=== PATIENT | male | born 1975 | race Caucasian/White ===

== ENCOUNTER 2016-06-30 16:28 | Emergency (ER) | payer MEDICARE ==
[~2016-06-30] VITALS: Ht 170.2 cm; Wt 86.2 kg
[~2016-06-30 16:28] MED LIST: AMIT50TA PO; BUSP30TA PO; CLIN-44 PO; DIPH25CA58 PO; HYDR-2666 PO; HYDR-971 PO; HYDR12.58 PO; IVER3TAB2 PO; LEVO750T31 PO; LISI-334 PO; METO50TA2 PO; METR500T4 PO; NAPR500T3 PO; NAPR550T PO; NYST30PO9 TP; ONDA4TAB7 PO; OXYC-323 PO; PERM60CR11 TP; PRED50TA PO; PROAIR HFA8.5 GM INH; VENL37.56 PO
[2016-06-30 16:51] VITALS: BP 147/63
[2016-06-30] MEDS ORDERED: HYDROCODONE/APAP 5/325MG TABLET. PO ONE (17:45)
[2016-06-30] MEDS ORDERED: DICL100T PO (18:21)
--- NOTE | 2016-06-30 18:22 | PHYS DOC ---
Past Medical History Past Medical History: Anxiety, Other Additional Past Medical Histor: neuropathy, chronic back pain, COLITIS Past Surgical History: No Surgical History Alcohol Use: None Drug Use: None Adult General Chief Complaint Chief Complaint: OTHER COMPLAINTS [facility] HPI Patient is a 40 year old male presents emergency room today with complaint of tailbone pain as well as bilateral hip pain, left greater than right secondary to a fall yesterday. Patient states he attempted to sit, bend 20 minutes the bench and landed onto his buttocks. Patient was seen here last night and was told that he had a tailbone injury. He did not receive any narcotic prescriptions to take home as patient was researched on [employer] and found to have multiple narcotic prescriptions within the past month. Patient is also complaining of rectal irritation and bright red blood on the toilet paper when he wipes. Patient does have a history of colitis. He denies abdominal pain, fevers or chills. Patient states this began today. Review of Systems Review of Systems Constitutional: Denies fever or chills [] Eyes: Denies change in visual acuity, redness, or eye pain [] HENT: Denies nasal congestion or sore throat [] Respiratory: Denies cough or shortness of breath [] Cardiovascular: No additional information not addressed in HPI [] GI: Denies abdominal pain, nausea, vomiting, bloody stools or diarrhea patient reports anal irritation and bright red blood on toilet paper when he wipes. Patient denies black or bloody stools. Patient denies gross blood in the toilet with bowel movements. : Denies dysuria or hematuria [] Musculoskeletal: Patient reports tailbone and bilateral hip pain, left greater than right. Integument: Denies rash or skin lesions [] Neurologic: Denies headache, focal weakness or sensory changes [] Endocrine: Denies polyuria or polydipsia [] Current Medications Current Medications Current Medications Medications (Trade) Dose Ordered Sig/Idalia Start Time Stop Time Status Last Admin Dose Admin Acetaminophen/ Hydrocodone Bitart (Lortab 5/325) 1 tab 1X ONCE 06/30/16 17:45 06/30/16 17:47 DC 06/30/16 18:07 1 TAB Allergies Allergies Allergies Coded Allergies Type Severity Reaction Last Updated Verified ketorolac Allergy Severe HIVES 06/14/16 No Penicillins Allergy Intermediate 06/14/16 Yes tramadol Allergy Intermediate HIVES 06/14/16 Yes Physical Exam Physical Exam Constitutional: Well developed, well nourished, no acute distress, non-toxic appearance. [] HENT: Normocephalic, atraumatic, bilateral external ears normal, oropharynx moist, no oral exudates, nose normal. [] Eyes: PERRLA, EOMI, conjunctiva normal, no discharge. [] Neck: Normal range of motion, no tenderness, supple, no stridor. [] Cardiovascular:Heart rate regular rhythm, no murmur [] Lungs & Thorax: Bilateral breath sounds clear to auscultation [] Abdomen: Bowel sounds normal, soft, no tenderness, no masses, no pulsatile masses. Patient has a small anal fissure at the approximate 5 o'clock position. There is no active bleeding at this time. Skin: Warm, dry, no erythema, no rash. [] Back: No tenderness, no CVA tenderness. Extremities: Patient's pelvis is stable. There is tenderness to palpation to the posterior lateral aspect of patient's left hip but any palpable defect, deformity, instability or crepitus. There is also tenderness to palpation in the inferior aspect of the sacrum into the coccyx. There is no palpable defect or deformity appreciated. There is no instability or crepitus. Neurologic: Alert and oriented X 3, normal motor function, normal sensory function, no focal deficits noted. [] Psychologic: Affect normal, judgement normal, mood normal. [] Current Patient Data Vital Signs Vital Signs Date Time Temp Pulse Resp B/P Pulse Ox O2 Delivery O2 Flow Rate FiO2 06/30/16 18:07 18 98 Room Air 06/30/16 16:51 97.7 69 97.7 EKG EKG [] Radiology/Procedures Radiology/Procedures AP pelvis was performed with adequate technique. There is no evidence of acute bony injury. Dedicated views of the coccyx and sacrum were performed as well. There is no definitive evidence of a sacrococcygeal fracture. Course & Med Decision Making Course & Med Decision Making Pertinent Labs and Imaging studies reviewed. (See chart for details) [] Dragon Disclaimer Dragon Disclaimer This electronic medical record was generated, in whole or in part, using a voice recognition dictation system. Departure Departure Impression: Primary Impression: Coccygeal pain, acute Additional Impressions: Contusion Anal fissure Disposition: HOME, SELF-CARE Condition: GOOD Referrals: NO PCP (PCP) Patient Instructions: Contusion, [id number], Tailbone Injury, [id number] Additional Instructions: 1. The x-rays of your tailbone and hips/pelvis today are normal. This means that you did not break any bones. 2. Take the medication as prescribed. 3. Review the discharge instructions for reasons return to the emergency room. 4. Follow-up with a primary care doctor in the next 5-7 days. Use the pamphlet provided for assistance in finding one. Scripts Diclofenac Sodium (Voltaren-Xr)100 Mg Tab.er.24h1 Tab PO DAILY #30 TAB Prov:FLOWER RAMOS 06/30/16 Problem Qualifiers FLOWER RAMOS Jun 30, 2016 18:22
--- NOTE | 2016-07-01 09:49 | RAD ---
Three-view sacrum and coccyx study Indications: Fell yesterday. Pain. Findings: No fracture or displacement or osteolytic process is seen. No diastases of either SI joint is seen. IMPRESSION: No acute fracture.
--- NOTE | 2016-07-01 09:50 | RAD ---
AP view of the pelvis Indications: Fell yesterday. Pain. Findings: The hip joints are symmetric. No acute fracture is seen. No diastases is evident. No osteolytic process is seen. IMPRESSION: No acute fracture.
== END 2016-06-30 18:28 | disposition home or self-care (01) ==
LOC: ER 16:28
DX: T14.8 Other injury of unspecified body region (principal); K60.2 Anal fissure, unspecified; M53.3 Sacrococcygeal disorders, not elsewhere classified; M25.551 Pain in right hip; M25.552 Pain in left hip; G89.29 Other chronic pain; Z88.0 Allergy status to penicillin; Z88.8 Allergy status to other drugs, medicaments and biological substances; Z88.6 Allergy status to analgesic agent; W19.XXXA Unspecified fall, initial encounter; Y93.89 Activity, other specified; Y99.8 Other external cause status; Y92.89 Other specified places as the place of occurrence of the external cause
CPT/HCPCS: 72170; 72220; 99284

== ENCOUNTER 2016-07-13 19:22 | Emergency (ER) | payer MEDICARE ==
[~2016-07-13] VITALS: Ht 167.6 cm; Wt 86.2 kg
[~2016-07-13 19:22] MED LIST changes: +DICL100T PO
[2016-07-13 19:30] VITALS: BP 134/82
[2016-07-13] MEDS ORDERED: DICL75TA PO (20:11)
--- NOTE | 2016-07-13 20:11 | PHYS DOC ---
Past Medical History Past Medical History: Anxiety, Hypertension, Other Additional Past Medical Histor: neuropathy, chronic back pain, COLITIS Past Surgical History: No Surgical History Alcohol Use: None Drug Use: None Adult General Chief Complaint Chief Complaint: HAND PROBLEM HPI HPI Patient is a 40 year old male presents the emergency Department today with complaint of right wrist and hand pain secondary to a fall down 15 steps at home. Patient denies any additional injuries or concerns at this time. Patient states this happened within the past hour. Patient denies striking his head or loss of consciousness. Patient denies any previous fractures or dislocations to his right wrist or hand. Of incidental note, patient is been seen numerous times at this facility for slips/falls without radiographic evidence of bony injury. This is patient's third visit to this emergency department in the past 2 weeks. Review of Systems Review of Systems Constitutional: Denies fever or chills [] Eyes: Denies change in visual acuity, redness, or eye pain [] HENT: Denies nasal congestion or sore throat [] Respiratory: Denies cough or shortness of breath [] Cardiovascular: No additional information not addressed in HPI [] GI: Denies abdominal pain, nausea, vomiting, bloody stools or diarrhea [] : Denies dysuria or hematuria [] Musculoskeletal: Denies back pain or joint pain [] Integument: Denies rash or skin lesions [] Neurologic: Denies headache, focal weakness or sensory changes [] Endocrine: Denies polyuria or polydipsia [] Allergies Allergies Allergies Coded Allergies Type Severity Reaction Last Updated Verified ketorolac Allergy Severe HIVES 06/14/16 No Penicillins Allergy Intermediate 06/14/16 Yes tramadol Allergy Intermediate HIVES 06/14/16 Yes Physical Exam Physical Exam Constitutional: Well developed, well nourished, no acute distress, non-toxic appearance. Patient laughs, smiles and hasn't lighthearted conversation with the staff. HENT: Normocephalic, atraumatic, bilateral external ears normal, oropharynx moist, no oral exudates, nose normal. [] Eyes: PERRLA, EOMI, conjunctiva normal, no discharge. [] Neck: Normal range of motion, no tenderness, supple, no stridor. [] Cardiovascular:Heart rate regular rhythm, no murmur [] Lungs & Thorax: Bilateral breath sounds clear to auscultation [] Abdomen: Bowel sounds normal, soft, no tenderness, no masses, no pulsatile masses. [] Skin: Warm, dry, no erythema, no rash. [] Back: No tenderness, no CVA tenderness. [] Extremities: Patient's right shoulder, right upper arm, right elbow and right proximal/mid forearm are normal in appearance and nontender palpation. Patient' s right hand and right wrist are normal in appearance. Patient is tenderness to both the proximal carpal rolls of his wrist without focal tenderness, instability or crepitus. His hand is also tender to palpation to the area of the fourth and fifth metacarpal. There is no palpable defect, deformity, instability or crepitus to the hand or wrist. Wrist is stable without laxity. Fingers are neurovascularly intact with capillary refill less than 2 seconds. Neurologic: Alert and oriented X 3, normal motor function, normal sensory function, no focal deficits noted. [] Psychologic: Affect normal, judgement normal, mood normal. [] Current Patient Data Vital Signs Vital Signs Date Time Temp Pulse Resp B/P Pulse Ox O2 Delivery O2 Flow Rate FiO2 07/13/16 19:30 98.1 92 18 98 Room Air 98.1 EKG EKG [] Radiology/Procedures Radiology/Procedures 3 views of patient's right wrist and right hand were performed with adequate technique. There is no evidence of fracture or dislocation. Course & Med Decision Making Course & Med Decision Making This is a 40-year-old male who presents the emergency department with a complaint of a slip and fall at home within an hour his arrival here in the emergency department. He reports his only injuries to his right wrist and hand after falling down approximately 15 stairs. His physical exam shows no outward evidence of injury, his x-rays here today are normal. Patient is well-known at this facility for requesting narcotics. He did request pain medicine here. This was denied by me. I will not prescribe him narcotics. Dragon Disclaimer Dragon Disclaimer This electronic medical record was generated, in whole or in part, using a voice recognition dictation system. Departure Departure Impression: Primary Impression: Hand contusion Additional Impression: Wrist sprain Referrals: NO PCP (PCP) Patient Instructions: Contusion, [id number], Joint Sprain Additional Instructions: 1. The x-rays of your right hand and wrist today show no evidence of fracture or dislocation. 2. Keep the Bart wrap on during periods of activity. Apply ice every 2 hours for 20-30 minutes at a time. 3. Take the medication as prescribed. 4. Read over the discharge instructions for self-care and reasons return to the emergency room. 5. Use the pamphlet provided for assistance in finding a primary care doctor to address your medical concerns. Scripts Diclofenac Sodium 75 Mg Tablet.dr1 Tab PO BID #20 TAB Ref 1 Prov:FLOWER RAMOS 07/13/16 Problem Qualifiers Primary Impression: Hand contusion Encounter type: initial encounter Laterality: right Qualified Code: S60.221A - Contusion of right hand, initial encounter Additional Impression: Wrist sprain Encounter type: initial encounter Laterality: right Qualified Code: S63.501A - Unspecified sprain of right wrist, initial encounter FLOWER RAMOS Jul 13, 2016 20:11
--- NOTE | 2016-07-14 08:14 | RAD ---
Right wrist and right hand radiographs History: Pain after fall. Comparison: Right wrist radiographs 11/21/2008. Findings: PA, lateral, and oblique views of the right wrist. No acute fracture or dislocation is identified. No focal soft tissue swelling is seen. PA, lateral, and oblique views of the right hand. No acute fracture or dislocation is identified. No focal soft tissue swelling is seen. Impression: No acute osseous traumatic injury identified.
== END 2016-07-13 20:20 | disposition home or self-care (01) ==
LOC: ER 19:22
DX: S63.501A Unspecified sprain of right wrist, initial encounter (principal); S60.229A Contusion of unspecified hand, initial encounter; I10 Essential (primary) hypertension; G89.29 Other chronic pain; M54.89 Other dorsalgia; Z88.0 Allergy status to penicillin; Z88.5 Allergy status to narcotic agent; Z88.8 Allergy status to other drugs, medicaments and biological substances; W10.8XXA Fall (on) (from) other stairs and steps, initial encounter; Y93.89 Activity, other specified; Y99.8 Other external cause status; Y92.098 Other place in other non-institutional residence as the place of occurrence of the external cause
CPT/HCPCS: 73110; 73130; 99284

== ENCOUNTER 2016-11-17 20:29 | Emergency (ER) | payer SELFPAY ==
[~2016-11-17] VITALS: Ht 167.6 cm; Wt 92.1 kg
[~2016-11-17 20:29] MED LIST changes: +DICL75TA PO; +NYST15PO9 TP; -NYST30PO9 TP
[2016-11-17 20:46] VITALS: BP 159/72
[2016-11-17 21:54] LABS: BASO # 0.1 x10^3/uL (0.0-0.2); BASO % 1 % (0-3); EOS % 3 % (0-3); HEMATOCRIT 45.5 % (39.0-53.0); HEMOGLOBIN 15.6 g/dL (13.0-17.5); LYMPH # 2.7 x10^3/uL (1.0-4.8); LYMPH % 22 % (24-48); MEAN CORPUSCULAR HEMOGLOBIN 33 pg (25-35); MEAN CORPUSCULAR HGB CONC 34 g/dL (31-37); MEAN CORPUSCULAR VOLUME 96 fL (79-100); MONO % 8 % (0-9); NEUT % 65 % (31-73); PLATELET COUNT 288 x10^3/uL (140-400); RED BLOOD COUNT 4.73 x10^6/uL (4.30-5.70); RED CELL DISTRIBUTION WIDTH 13.2 % (11.5-14.5)
[2016-11-17 21:59] LABS: NEG OBC FOB NEG; POS OBC FOB POS
[2016-11-17] MEDS ORDERED: FAMOTIDINE 20 MG/2 ML VIAL IVP ONE (22:00)
[2016-11-17] MEDS ORDERED: IV NORMAL SALINE 1000ML BAG 1,000 ML IV ONE (22:00)
[2016-11-17] MEDS ORDERED: ONDANSETRON PF 4 MG/2 ML VIAL. IV ONE (22:00)
[2016-11-17] MEDS ORDERED: fentaNYL PF VIAL 100 MCG/2 ML VIAL IV ONE (22:00)
[2016-11-17 22:06] LABS: CALCIUM 9.3 mg/dL (8.5-10.1); CREATININE 1.1 mg/dL (0.7-1.3); GFR 73.1; POTASSIUM 3.8 mmol/L (3.5-5.1)
[2016-11-17 22:12] LABS: ALBUMIN 3.6 g/dL (3.4-5.0); ALBUMIN/GLOBULIN RATIO 0.9 (1.0-1.7); TOTAL BILIRUBIN 0.2 mg/dL (0.2-1.0); TOTAL PROTEIN 7.6 g/dL (6.4-8.2)
[2016-11-17] MEDS ORDERED: CONTRAST GIVEN MC PRN (22:30)
[2016-11-17] MEDS ORDERED: IOHEXOL 300 MG/ML 75 ML VIAL IV ONE (22:30)
[2016-11-17 22:40] LABS: BILIRUBIN,URINE NEGATIVE (NEG); GLUCOSE,URINE NEGATIVE (NEG); NITRITE,URINE NEGATIVE (NEG); PROTEIN,URINE NEGATIVE (NEG-TRACE); UROBILINOGEN,URINE 0.2 mg/dL (0.2 mg/dL)
[2016-11-17 22:45] LABS: BARBITURATES NEG (NEG); BENZODIAZEPINES NEG (NEG); CANNABINOIDS NEG (NEG); COCAINE NEG (NEG); METHADONE NEG (NEG); OPIATES NEG (NEG); PHENCYCLIDINE NEG (NEG)
--- NOTE | 2016-11-17 22:57 | RAD ---
PROCEDURE CT of the abdomen and pelvis with contrast HISTORY Abdominal pain with rectal bleeding TECHNIQUE After IV infusion of95 cc of Optiray-320, helical CT scanning of the abdomen and pelvis was performed.GI contrast was not administered COMPARISON FINDINGS The liveer is homogeous in appearance and normal in size. The spleen is unremarkable and normal in size. The pancreas is homogeneous in appearance and no focal enlargement is seen. The gallbladder appears normal and no intra or extrahepatic biliary ductal dilatation is seen. No focal aneurysmal dilatation of the abdominal aorta is seen. No enlarged abdominal or pelvic lymphadenopathy is seen. No soft tissue mass is seen. No obstructive bowel pattern or bowel wall thickening or inflammatory change is seen. No free intraperitoneal fluid or abscess or free intraperitoneal air is seen. The lung bases are clear. [The kidneys appear normal. There is mild wall thickening of the urinary bladder. No adrenal masses are seen. No osteolytic process is seen. The appendix is normal. IMPRESSION One. Mild wall thickening of the urinary bladder could be secondary nondistention or could be mild cystitis. 2. No other findings. PQRS Statement: One or more of the following individualized dose reduction techniques were utilized for this study: 1. Automated exposure control. 2. Adjustment of the mA and/or kV according to patient size. 3. Use of iterative reconstruction technique. Electronically signed by: Yang Villa MD (November 17, 2016 22:55:12)
[2016-11-17 23:15] LABS: BACTERIA,URINE 0 /HPF (0-FEW); RBC,URINE 0 /HPF (0-2); WBC,URINE OCC /HPF (0-4)
[2016-11-17] MEDS ORDERED: CIPROFLOXACIN 400MG PREMIX 200 ML IV STA (23:18)
[2016-11-17] MEDS ORDERED: DICYCLOMINE HCL 10 MG CAPSULE PO ONE (23:30)
[2016-11-17] MEDS ORDERED: HYDROcodone/APAP 5/325MG 1 TAB TABLET PO ONE (23:30)
--- NOTE | 2016-11-17 23:31 | PHYS DOC ---
Past Medical History Past Medical History: Anxiety, Hypertension, Other Additional Past Medical Histor: neuropathy, chronic back pain, COLITIS Past Surgical History: Other Additional Past Surgical Histo: HERNIA REPAIR Alcohol Use: None Drug Use: None Adult General Chief Complaint Chief Complaint: RECTAL BLEED HPI HPI Patient is a 41-year-old male with history of hypertension and anxiety who presents today with mild intermittent bilateral lower abdominal pain with diarrhea for two days and rectal bleed noted three hours ago on toilet paper when he wiped himself. Patient states the blood was bright red. Patient states he feels his rectal region is very sore from wiping due to the diarrhea. Patient states he has history of an intestine infection a few years ago. Patient denies any fever. Patient denies any nausea vomiting. Review of Systems Review of Systems Constitutional: Denies fever or chills [] Eyes: Denies change in visual acuity, redness, or eye pain [] HENT: Denies nasal congestion or sore throat [] Respiratory: Denies cough or shortness of breath [] Cardiovascular: No additional information not addressed in HPI [] GI: Abdominal pain, rectal bleeding, diarrhea : Denies dysuria or hematuria [] Musculoskeletal: Denies back pain or joint pain [] Integument: Denies rash or skin lesions [] Neurologic: Denies headache, focal weakness or sensory changes [] Endocrine: Denies polyuria or polydipsia [] Current Medications Current Medications Current Medications Medications (Trade) Dose Ordered Sig/Idalia Start Time Stop Time Status Last Admin Dose Admin Acetaminophen/ Hydrocodone Bitart (Lortab 5/325) 1 tab 1X ONCE 11/17/16 23:30 11/17/16 23:31 DC 11/17/16 23:27 1 TAB Ciprofloxacin Lactate 200 ml @ 200 mls/hr 1X STAT 11/17/16 23:18 11/18/16 00:17 UNV Dicyclomine HCl (Bentyl) 20 mg 1X ONCE 11/17/16 23:30 11/17/16 23:31 DC 11/17/16 23:27 20 MG Famotidine (Pepcid) 20 mg 1X ONCE 11/17/16 22:00 11/17/16 22:01 DC 11/17/16 22:09 20 MG Fentanyl Citrate (Fentanyl 2ml Vial) 25 mcg 1X ONCE 11/17/16 22:00 11/17/16 22:01 DC 11/17/16 22:10 25 MCG Info (Do NOT chart on this entry -- for MONITORING) 1 each PRN DAILY PRN 11/17/16 22:30 11/17/16 23:42 DC Iohexol (Omnipaque 300 Mg/ml) 75 ml 1X ONCE 11/17/16 22:30 11/17/16 22:31 DC 11/17/16 22:44 75 ML Ondansetron HCl (Zofran) 4 mg 1X ONCE 11/17/16 22:00 11/17/16 22:01 DC 11/17/16 22:09 4 MG Sodium Chloride 1,000 ml @ 1,000 mls/hr 1X ONCE 11/17/16 22:00 11/17/16 22:59 DC 11/17/16 22:00 1,000 MLS/HR Allergies Allergies Allergies Coded Allergies Type Severity Reaction Last Updated Verified ketorolac Allergy Severe HIVES 06/14/16 No Penicillins Allergy Intermediate 06/14/16 Yes tramadol Allergy Intermediate HIVES 06/14/16 Yes Physical Exam Physical Exam Constitutional: Well developed, well nourished, no acute distress, non-toxic appearance. [] HENT: Normocephalic, atraumatic, bilateral external ears normal, oropharynx moist, no oral exudates, nose normal. [] Eyes: PERRLA, EOMI, conjunctiva normal, no discharge. [] Neck: Normal range of motion, no tenderness, supple, no stridor. [] Cardiovascular:Heart rate regular rhythm, no murmur [] Lungs & Thorax: Bilateral breath sounds clear to auscultation [] Abdomen: Bowel sounds normal, soft, no tenderness, no masses, no pulsatile masses. [] Rectal exam External rectum region appears normal No internal or external hemorrhoids Brown stool on rectal exam Skin: Warm, dry, no erythema, no rash. [] Back: No tenderness, no CVA tenderness. [] Extremities: No tenderness, no cyanosis, no clubbing, ROM intact, no edema. [] Neurologic: Alert and oriented X 3, normal motor function, normal sensory function, no focal deficits noted. [] Psychologic: Affect normal, judgement normal, mood normal. [] Current Patient Data Vital Signs Vital Signs Date Time Temp Pulse Resp B/P (MAP) Pulse Ox O2 Delivery O2 Flow Rate FiO2 5/21/17 23:27 20 11/17/16 20:46 98.1 88 159/72 (101) 97 Room Air 98.1 Lab Values Laboratory Tests Test 11/17/16 21:45 11/17/16 22:31 White Blood Count 12.0 x10^3/uL (4.0-11.0) H Red Blood Count 4.73 x10^6/uL (4.30-5.70) Hemoglobin 15.6 g/dL (13.0-17.5) Hematocrit 45.5 % (39.0-53.0) Mean Corpuscular Volume 96 fL (79-100) Mean Corpuscular Hemoglobin 33 pg (25-35) Mean Corpuscular Hemoglobin Concent 34 g/dL (31-37) Red Cell Distribution Width 13.2 % (11.5-14.5) Platelet Count 288 x10^3/uL (140-400) Neutrophils (%) (Auto) 65 % (31-73) Lymphocytes (%) (Auto) 22 % (24-48) L Monocytes (%) (Auto) 8 % (0-9) Eosinophils (%) (Auto) 3 % (0-3) Basophils (%) (Auto) 1 % (0-3) Neutrophils # (Auto) 7.8 x10^3uL (1.8-7.7) H Lymphocytes # (Auto) 2.7 x10^3/uL (1.0-4.8) Monocytes # (Auto) 1.0 x10^3/uL (0.0-1.1) Eosinophils # (Auto) 0.4 x10^3/uL (0.0-0.7) Basophils # (Auto) 0.1 x10^3/uL (0.0-0.2) Stool Occult Blood Positive (NEG) Sodium Level 142 mmol/L (136-145) Potassium Level 3.8 mmol/L (3.5-5.1) Chloride Level 106 mmol/L (98-107) Carbon Dioxide Level 26 mmol/L (21-32) Anion Gap 10 (6-14) Blood Urea Nitrogen 20 mg/dL (8-26) Creatinine 1.1 mg/dL (0.7-1.3) Estimated GFR (Cockcroft-Gault) 73.1 BUN/Creatinine Ratio 18 (6-20) Glucose Level 103 mg/dL (70-99) H Calcium Level 9.3 mg/dL (8.5-10.1) Total Bilirubin 0.2 mg/dL (0.2-1.0) Aspartate Amino Transferase (AST) 17 U/L (15-37) Alanine Aminotransferase (ALT) 34 U/L (16-63) Alkaline Phosphatase 59 U/L (46-116) Total Protein 7.6 g/dL (6.4-8.2) Albumin 3.6 g/dL (3.4-5.0) Albumin/Globulin Ratio 0.9 (1.0-1.7) L Lipase 97 U/L (73-393) Ethyl Alcohol Level < 10 mg/dL (0-10) Urine Collection Type Unknown Urine Color Yellow Urine Clarity Clear Urine pH 7.0 Urine Specific [place] >=1.030 Urine Protein Negative mg/dL (NEG-TRACE) Urine Glucose (UA) Negative mg/dL (NEG) Urine Ketones (Stick) Negative mg/dL (NEG) Urine Blood Negative (NEG) Urine Nitrite Negative (NEG) Urine Bilirubin Negative (NEG) Urine Urobilinogen Dipstick 0.2 mg/dL (0.2 mg/dL) Urine Leukocyte Esterase Negative (NEG) Urine RBC 0 /HPF (0-2) Urine WBC Occ /HPF (0-4) Urine Squamous Epithelial Cells None /LPF Urine Bacteria 0 /HPF (0-FEW) Urine Mucus Mod /LPF Urine Opiates Screen Neg (NEG) Urine Methadone Screen Neg (NEG) Urine Barbiturates Neg (NEG) Urine Phencyclidine Screen Neg (NEG) Urine Amphetamine/Methamphetamine Neg (NEG) Urine Benzodiazepines Screen Neg (NEG) Urine Cocaine Screen Neg (NEG) Urine Cannabinoids Screen Neg (NEG) Urine Ethyl Alcohol Neg (NEG) Laboratory Tests 11/17/16 21:45 Laboratory Tests 11/17/16 21:45 EKG EKG [] Radiology/Procedures Radiology/Procedures []PROCEDURE: CT ABD PELV W/ IV CONTRST ONLY PROCEDURE CT of the abdomen and pelvis with contrast HISTORY Abdominal pain with rectal bleeding TECHNIQUE After IV infusion of95 cc of Optiray-320, helical CT scanning of the abdomen and pelvis was performed.GI contrast was not administered COMPARISON FINDINGS The liveer is homogeous in appearance and normal in size. The spleen is unremarkable and normal in size. The pancreas is homogeneous in appearance and no focal enlargement is seen. The gallbladder appears normal and no intra or extrahepatic biliary ductal dilatation is seen. No focal aneurysmal dilatation of the abdominal aorta is seen. No enlarged abdominal or pelvic lymphadenopathy is seen. No soft tissue mass is seen. No obstructive bowel pattern or bowel wall thickening or inflammatory change is seen. No free intraperitoneal fluid or abscess or free intraperitoneal air is seen. The lung bases are clear. [The kidneys appear normal. There is mild wall thickening of the urinary bladder. No adrenal masses are seen. No osteolytic process is seen. The appendix is normal. IMPRESSION One. Mild wall thickening of the urinary bladder could be secondary nondistention or could be mild cystitis. 2. No other findings. PQRS Statement: One or more of the following individualized dose reduction techniques were utilized for this study: 1. Automated exposure control. 2. Adjustment of the mA and/or kV according to patient size. 3. Use of iterative reconstruction technique. Electronically signed by: Jordyn Villa MD (November 17, 2016 22:55:12) DICTATED and SIGNED BY: JORDYN VILLA III, MD DATE: 11/17/16 3962 CC: ANIKET RYDER APRN; NO PCP; NON,STAFF ~ Course & Med Decision Making Course & Med Decision Making Pertinent Labs and Imaging studies reviewed. (See chart for details) Patient is in the ED with complaint of diarrhea for 2 days and abdominal pain. He states he wiped himself this evening and noted some blood on the toilet paper. He states his rectal region has been very raw from multiple diarrhea episodes. CBC with a WBC of 12.0, hemoglobin 15.6, hematocrit 45.5. CMP would not acute findings. Urine analysis is negative for infection. CT of the abdomen and pelvic shows mild thickening of the urinary bladder which could be due to and nondistended bladder or mild cystitis. Patient's urine is negative for infection. He has no UTI symptoms. He was discharged with Lomotil, dicyclomine and pain medicine. We provided him a telesales consultant to follow-up with in the next 1-3 days or his own PCP. His provided return precautions including the need to return to the ED if he symptoms worsen. Dragon Disclaimer Dragon Disclaimer This electronic medical record was generated, in whole or in part, using a voice recognition dictation system. Departure Departure Impression: Primary Impression: Rectal bleed Additional Impressions: Abdominal pain Diarrhea Disposition: 01 HOME, SELF-CARE Condition: STABLE Referrals: NO PCP (PCP) COLETTE HARO MD follow up in one week Patient Instructions: Abdominal Pain, Diarrhea, [id number], Rectal Bleeding, [id number] Additional Instructions: You were seen for abdominal pain, rectal bleeding, and diarrhea. Take the prescribed medicines as ordered. Follow-up with the provided doctor in the next 1-3 days. Come back to the emergency room if symptoms worsen. Scripts Diphenoxylate Hcl/Atropine (LOMOTIL TABLET) 1 Each Tablet 1 TAB PO TID, #30 TAB Prov: ANIKET RYDER APRN 11/17/16 Dicyclomine Hcl (DICYCLOMINE HCL) 20 Mg Tablet 1 TAB PO TID, #30 TAB 1 Refill Prov: ANIKET RYDER APRN 11/17/16 Hydrocodone/Apap 5-325 (NORCO 5-325 TABLET) 1 Each Tablet 1-2 TAB PO Q4-6HRS, #12 TAB Prov: ANIKET RYDER APRN 11/17/16 Problem Qualifiers Additional Impressions: Abdominal pain Abdominal location: lower abdomen, unspecified Qualified Codes: R10.30 - Lower abdominal pain, unspecified Diarrhea Diarrhea type: unspecified type Qualified Codes: R19.7 - Diarrhea, unspecified ANIKET RYDER APRN November 17, 2016 23:31
[2016-11-17] MEDS ORDERED: HYDR-971 PO (23:36)
[2016-11-17] MEDS ORDERED: DICY20TA3 PO (23:36)
[2016-11-17] MEDS ORDERED: DIPH1TAB PO (23:36)
== END 2016-11-17 23:40 | disposition home or self-care (01) ==
LOC: ER 20:29
DX: K62.5 Hemorrhage of anus and rectum (principal); R10.30 Lower abdominal pain, unspecified; F41.9 Anxiety disorder, unspecified; I10 Essential (primary) hypertension; G89.29 Other chronic pain; Z88.0 Allergy status to penicillin; Z88.6 Allergy status to analgesic agent
CPT/HCPCS: 36415; 74177; 80053; 80305; 80320; 81001; 82274; 83690; 85027; 96361; 96374; 96375; 99285; J2405; J3010; J7030; Q9967; S0028; G0480; G0481

== ENCOUNTER 2016-12-17 17:39 | Emergency (ER) | payer SELFPAY ==
[~2016-12-17] VITALS: Ht 167.6 cm; Wt 86.2 kg
[~2016-12-17 17:39] MED LIST changes: -CLIN-44 PO; +CLIN150C14 PO; +DICY20TA3 PO; +DIPH1TAB PO; -HYDR-2666 PO; +HYDR-2758 PO; -METR500T4 PO; +METR500T8 PO
[2016-12-17 18:00] VITALS: BP 145/80
[2016-12-17] MEDS ORDERED: IBUPROFEN 800 MG TABLET. PO ONE (18:30)
--- NOTE | 2016-12-17 18:41 | PHYS DOC ---
Past Medical History Past Medical History: Anxiety, Hypertension, Other Additional Past Medical Histor: neuropathy, chronic back pain, COLITIS Past Surgical History: Other Additional Past Surgical Histo: HERNIA REPAIR Alcohol Use: None Drug Use: None Adult General Chief Complaint Chief Complaint: FOOT INJURY PAIN HPI HPI Patient is a 41 year old male presents to the emergency department stating that he fell down 2 stairs and injured his foot, after. Patient states she's had increased pain and discomfort. He is not taken anything for the pain at home as he came immediately to the emergency department. Patient is capable of moving his toes he has good sensation noted peripheral pulses are 2+ cap refill brisk less than 2 seconds. Review of Systems Review of Systems Constitutional: Denies fever or chills [] Eyes: Denies change in visual acuity, redness, or eye pain [] HENT: Denies nasal congestion or sore throat [] Respiratory: Denies cough or shortness of breath [] Cardiovascular: No additional information not addressed in HPI [] GI: Denies abdominal pain, nausea, vomiting, bloody stools or diarrhea [] : Denies dysuria or hematuria [] Musculoskeletal: Denies back pain C/o left foot pain Integument: Denies rash or skin lesions [] Neurologic: Denies headache, focal weakness or sensory changes [] Endocrine: Denies polyuria or polydipsia [] Current Medications Current Medications Current Medications Medications (Trade) Dose Ordered Sig/[place]alia Start Time Stop Time Status Last Admin Dose Admin Ibuprofen (Motrin) 800 mg 1X ONCE 12/17/16 18:30 12/17/16 18:32 DC Allergies Allergies Allergies Coded Allergies Type Severity Reaction Last Updated Verified ketorolac Allergy Severe HIVES 06/14/16 No Penicillins Allergy Intermediate 06/14/16 Yes tramadol Allergy Intermediate HIVES 06/14/16 Yes Physical Exam Physical Exam Constitutional: Well developed, well nourished, no acute distress, non-toxic appearance. [] HENT: Normocephalic, atraumatic, bilateral external ears normal, oropharynx moist, no oral exudates, nose normal. [] Eyes: PERRLA, EOMI, conjunctiva normal, no discharge. [] Neck: Normal range of motion, no tenderness, supple, no stridor. [] Cardiovascular:Heart rate regular rhythm, no murmur [] Lungs & Thorax: Bilateral breath sounds clear to auscultation [] Skin: Warm, dry, no erythema, no rash. [] Back: No tenderness Extremities: lef t foot tenderness noted over the fourth and fifth metatarsal area. Patient noted to have a cyst along the fourth metatarsal area. Patient with good sensation noted to toes. Patient was also noted to have peripheral pulses 2+ cap refill brisk less than 2 seconds. No bruising or discoloration noted. No cyanosis, no clubbing, ROM intact, no edema. [] Neurologic: Alert and oriented X 3, normal motor function, normal sensory function, no focal deficits noted. [] Psychologic: Affect normal, judgement normal, mood normal. [] Current Patient Data Vital Signs Vital Signs Date Time Temp Pulse Resp B/P (MAP) Pulse Ox O2 Delivery O2 Flow Rate FiO2 12/17/16 18:00 98.3 95 18 96 Room Air 98.3 EKG EKG [] Radiology/Procedures Radiology/Procedures [] Course & Med Decision Making Course & Med Decision Making Pertinent Labs and Imaging studies reviewed. (See chart for details) X-ray was negative for any bony abnormalities per Dr Latisha Chavez. Patient was placed in an Bart wrap recommended postop shoe with patient refusing. Patient was more concerned of the cyst on the foot other than the foot sprain. Patient will be discharged home in stable condition. Recommended Bart wrap for the next 7-10 days. Recommended a hard sole shoe for the next week. Follow-up with orthopedic if he continued have pain and discomfort. Ibuprofen 800 mg every 8 hours with food stop taking few develop an upset stomach. Ice packs on 20 minutes off 20 minutes several times a day. [] Dragon Disclaimer Dragon Disclaimer This electronic medical record was generated, in whole or in part, using a voice recognition dictation system. Departure Departure Impression: Primary Impression: Sprain of left foot Disposition: 01 HOME, SELF-CARE Condition: STABLE Referrals: NO PCP (PCP) JORDYN PARADA MD Patient Instructions: Foot Sprain-Brief Additional Instructions: Activity as tolerated. Wear the Bart wrap for the next 5-7 days. Wear hard soled shoe for the next week your offered a postop shoe in which you' ve refused. X-rays were negative for any bony abnormalities. Ibuprofen 800 mg every 8 hours with food septic if you develop an upset stomach. Ice packs on 20 minutes off 20 minutes several times a day. Elevation as much as possible. Follow-up with orthopedic in the next week. Return back to emergency prior signs symptoms become worse. ADELA LÓPEZ [employer] Dec 17, 2016 18:41
--- NOTE | 2016-12-18 09:14 | RAD ---
Indication injury, pain particularly metatarsals. AP oblique and lateral views of the left lobe were obtained. No bony abnormality is seen
== END 2016-12-17 18:44 | disposition home or self-care (01) ==
LOC: ER 17:39
DX: S93.602A Unspecified sprain of left foot, initial encounter (principal); I10 Essential (primary) hypertension; G89.29 Other chronic pain; G62.9 Polyneuropathy, unspecified; Z88.0 Allergy status to penicillin; Z88.6 Allergy status to analgesic agent; W10.9XXA Fall (on) (from) unspecified stairs and steps, initial encounter; Y93.89 Activity, other specified; Y99.8 Other external cause status; Y92.89 Other specified places as the place of occurrence of the external cause
CPT/HCPCS: 73630; 99284

== ENCOUNTER 2017-01-03 22:47 | Emergency (ER) | payer SELFPAY ==
[~2017-01-03] VITALS: Ht 167.6 cm; Wt 81.6 kg
--- NOTE | 2017-01-03 23:04 | PHYS DOC ---
Past Medical History Past Medical History: Anxiety, Hypertension, Other Additional Past Medical Histor: neuropathy, chronic back pain, COLITIS Past Surgical History: Other Additional Past Surgical Histo: HERNIA REPAIR Alcohol Use: None Drug Use: None Adult General Chief Complaint Chief Complaint: FOOT INJURY PAIN HPI HPI Patient is a 41 year old presents to the emergency department with complaints of left foot pain. He states he was walking in flip flops when he went to step on a curb and describes an inversion to the left ankle. He states that he felt a pop in the foot and has pain at the distal foot. Has been able to transient extremity since incident. Review of Systems Review of Systems Musculoskeletal: Left foot pain Integument: Denies rash or skin lesions [] Current Medications Current Medications Current Medications Medications (Trade) Dose Ordered Sig/[place] Start Time Stop Time Status Last Admin Dose Admin Acetaminophen/ Codeine Phosphate (Tylenol #3) 1 tab 1X ONCE 01/03/17 23:30 01/03/17 23:31 Allergies Allergies Allergies Coded Allergies Type Severity Reaction Last Updated Verified ketorolac Allergy Severe HIVES 06/14/16 No Penicillins Allergy Intermediate 06/14/16 Yes tramadol Allergy Intermediate HIVES 06/14/16 Yes Physical Exam Physical Exam Constitutional: Well developed, well nourished, no acute distress, non-toxic appearance. [] Cardiovascular:Heart rate regular rhythm, no murmur [] Lungs & Thorax: Bilateral breath sounds clear to auscultation [] Skin: Warm, dry, no erythema, no rash. [] Back: No tenderness, no CVA tenderness. [] Extremities: Left lower extremity exam: Left ankle exam unremarkable. Left foot without swelling without ecchymosis. He is mildly tender to palpate at the distal fifth metatarsal. Neurovascular intact distally. Full range of motion all digits without difficulty. Neurologic: Alert and oriented X 3, normal motor function, normal sensory function, no focal deficits noted. [] Psychologic: Affect normal, judgement normal, mood normal. [] EKG EKG [] Radiology/Procedures Radiology/Procedures Left foot x-ray reviewed by Dr. Boyd Saleh, emergency room physician. No acute changes identified. [] Course & Med Decision Making Course & Med Decision Making Pertinent Labs and Imaging studies reviewed. (See chart for details) Left foot, Bart bandage applied by nursing staff. Crutch instruction provided. Patient tolerated well. Neurovascular intact distally. [] Dragon Disclaimer Dragon Disclaimer This electronic medical record was generated, in whole or in part, using a voice recognition dictation system. Departure Departure Impression: Primary Impression: Sprain of left foot Disposition: HOME, SELF-CARE Condition: STABLE Referrals: NO PCP (PCP) Patient Instructions: Foot Sprain, RICE - Routine Care for Injuries Scripts Naproxen (NAPROSYN) 500 Mg Tablet 1 TAB PO BID, #20 TAB 1 Refill Prov: RAJNI RDZ APRN 01/03/17 RAJNI RDZ APRN Jan 03, 2017 23:04
[2017-01-03 23:19] VITALS: BP 150/78
[2017-01-03] MEDS ORDERED: NAPR500T PO (23:19)
[2017-01-03] MEDS ORDERED: ACETAMINOPHEN/CODEINE 300/30MG TABLET. PO ONE (23:30)
--- NOTE | 2017-01-04 08:00 | RAD ---
Examination: 3 views of the left foot History: History of left foot pain from fall pain in the lateral side Comparison: 12/17/2016 Findings: The alignment of the tarsal bones grossly appears unremarkable. The alignment of metatarsophalangeal joints, interphalangeal joints grossly appears unremarkable. There is no obvious acute fracture identified. Impression: No acute osseous findings.
== END 2017-01-03 23:33 | disposition home or self-care (01) ==
LOC: ER 22:47
DX: S93.602A Unspecified sprain of left foot, initial encounter (principal); F41.9 Anxiety disorder, unspecified; I10 Essential (primary) hypertension; G89.29 Other chronic pain; M54.9 Dorsalgia, unspecified; G62.9 Polyneuropathy, unspecified; Z88.0 Allergy status to penicillin; Z88.8 Allergy status to other drugs, medicaments and biological substances; Z88.5 Allergy status to narcotic agent; X58.XXXA Exposure to other specified factors, initial encounter; Y93.01 Activity, walking, marching and hiking; Y92.89 Other specified places as the place of occurrence of the external cause; Y99.8 Other external cause status
CPT/HCPCS: 73630; 99284

== ENCOUNTER 2017-03-10 17:15 | Emergency (ER) | payer SELFPAY ==
[~2017-03-10] VITALS: Ht 170.2 cm; Wt 93.4 kg
[~2017-03-10 17:15] MED LIST changes: +NAPR-682 PO; +NAPR500T PO; -NAPR550T PO
[2017-03-10] MEDS ORDERED: oxyCODONE/APAP 5/325 1 TAB TABLET PO ONE (18:00)
[2017-03-10] MEDS ORDERED: IPRATRPIUM/ALBUTEROL 0.5/2.5MG 3 ML NEBU. NEB ONE (18:00)
[2017-03-10] MEDS ORDERED: DEXAMETHASONE SOD PHOS 20 MG/5 ML VIAL. IV ONE (18:00)
[2017-03-10] MEDS ORDERED: IOHEXOL 300 MG/ML 75 ML VIAL IV ONE (18:00)
[2017-03-10] MEDS ORDERED: CONTRAST GIVEN MC PRN (18:15)
[2017-03-10 18:32] LABS: BASO # 0.1 x10^3/uL (0.0-0.2); BASO % 1 % (0-3); EOS % 5 % (0-3); HEMATOCRIT 47.4 % (39.0-53.0); HEMOGLOBIN 16.2 g/dL (13.0-17.5); LYMPH # 2.5 x10^3/uL (1.0-4.8); LYMPH % 25 % (24-48); MEAN CORPUSCULAR HEMOGLOBIN 33 pg (25-35); MEAN CORPUSCULAR HGB CONC 34 g/dL (31-37); MEAN CORPUSCULAR VOLUME 96 fL (79-100); MONO % 8 % (0-9); NEUT % 62 % (31-73); PLATELET COUNT 297 x10^3/uL (140-400); RED BLOOD COUNT 4.94 x10^6/uL (4.30-5.70); RED CELL DISTRIBUTION WIDTH 12.4 % (11.5-14.5); WHITE BLOOD COUNT 9.9 x10^3/uL (4.0-11.0)
[2017-03-10 18:44] LABS: CALCIUM 9.5 mg/dL (8.5-10.1); CREATININE 0.9 mg/dL (0.7-1.3); GFR 92.1; POTASSIUM 4.1 mmol/L (3.5-5.1)
[2017-03-10 18:50] LABS: ALBUMIN 4.1 g/dL (3.4-5.0); TOTAL BILIRUBIN 0.2 mg/dL (0.2-1.0); TOTAL PROTEIN 8.1 g/dL (6.4-8.2)
--- NOTE | 2017-03-10 18:59 | PHYS DOC ---
Past Medical History Past Medical History: Anxiety, Hypertension, Other Additional Past Medical Histor: neuropathy, chronic back pain, COLITIS, diarrhea Past Surgical History: Other Additional Past Surgical Histo: HERNIA REPAIR Alcohol Use: None Drug Use: None Adult General Chief Complaint Chief Complaint: ABDOMINAL PAIN HPI HPI Patient is a 41 year old male presenting to the emergency department for evaluation of multiple complaints including cough sore throat and runny nose shortness of breath abdominal pain generalized fatigue and malaise. Patient says that his cough is productive of yellowish sputum that he feels chills but he has had no subjective fevers. Patient says that he gets short of breath with his cough and with the cough he feels umbilical abdominal pain. He says that he has a hernia at his umbilicus and it is quite painful. I do not feel a hernia but it is quite painful to palpation in his periumbilical region. He is in no obvious distress with normal vital signs. Review of Systems Review of Systems Constitutional: Denies fever or chills [] HENT: + nasal congestion, sore throat [] Respiratory: + cough and shortness of breath [] Cardiovascular: No additional information not addressed in HPI [] GI: + abdominal pain. No nausea, vomiting, bloody stools or diarrhea [] Current Medications Current Medications Current Medications Medications (Trade) Dose Ordered Sig/[place] Start Time Stop Time Status Last Admin Dose Admin Albuterol/ Ipratropium (Duoneb) 3 ml 1X ONCE 03/10/17 18:00 03/10/17 18:01 DC 03/10/17 18:23 3 ML Dexamethasone Sodium Phosphate (Decadron) 8 mg 1X ONCE 03/10/17 18:00 03/10/17 18:01 DC 03/10/17 18:30 8 MG Info (Do NOT chart on this entry -- for MONITORING) 1 each PRN DAILY PRN 03/10/17 18:15 03/12/17 18:14 Iohexol (Omnipaque 300 Mg/ml) 75 ml 1X ONCE 03/10/17 18:00 03/10/17 18:01 DC 03/10/17 18:35 75 ML Oxycodone/ Acetaminophen (Percocet 5/325) 2 tab 1X ONCE 03/10/17 18:00 03/10/17 18:01 DC 03/10/17 18:13 2 TAB Allergies Allergies Allergies Coded Allergies Type Severity Reaction Last Updated Verified ketorolac Allergy Severe HIVES 06/14/16 No Penicillins Allergy Intermediate 06/14/16 Yes tramadol Allergy Intermediate HIVES 06/14/16 Yes Physical Exam Physical Exam Constitutional: Well developed, well nourished, no acute distress, non-toxic appearance. [] HENT: Normocephalic, atraumatic, bilateral external ears normal, pharynx erythematous, no oral exudates, boggy nasal turbinates Cardiovascular:Heart rate regular rhythm, no murmur [] Lungs & Thorax: Bilateral breath sounds diminished with expiratory wheezing Abdomen: Bowel sounds normal, soft, + periumbilical tenderness, no rebound or guarding, no masses, no pulsatile masses. [] Skin: Warm, dry, no erythema, no rash. [] Back: No tenderness, no CVA tenderness. [] Extremities: No tenderness, no cyanosis, no clubbing, ROM intact, no edema. [] Neurologic: Alert and oriented X 3, normal motor function, normal sensory function, no focal deficits noted. [] Psychologic: Affect normal, judgement normal, mood normal. [] Current Patient Data Vital Signs Vital Signs Date Time Temp Pulse Resp B/P (MAP) Pulse Ox O2 Delivery O2 Flow Rate FiO2 03/10/17 18:58 78 114/66 (82) 97 Room Air 03/10/17 18:13 16 03/10/17 17:27 98.8 98.8 Lab Values Laboratory Tests Test 03/10/17 18:25 White Blood Count 9.9 x10^3/uL (4.0-11.0) Red Blood Count 4.94 x10^6/uL (4.30-5.70) Hemoglobin 16.2 g/dL (13.0-17.5) Hematocrit 47.4 % (39.0-53.0) Mean Corpuscular Volume 96 fL (79-100) Mean Corpuscular Hemoglobin 33 pg (25-35) Mean Corpuscular Hemoglobin Concent 34 g/dL (31-37) Red Cell Distribution Width 12.4 % (11.5-14.5) Platelet Count 297 x10^3/uL (140-400) Neutrophils (%) (Auto) 62 % (31-73) Lymphocytes (%) (Auto) 25 % (24-48) Monocytes (%) (Auto) 8 % (0-9) Eosinophils (%) (Auto) 5 % (0-3) H Basophils (%) (Auto) 1 % (0-3) Neutrophils # (Auto) 6.1 x10^3uL (1.8-7.7) Lymphocytes # (Auto) 2.5 x10^3/uL (1.0-4.8) Monocytes # (Auto) 0.8 x10^3/uL (0.0-1.1) Eosinophils # (Auto) 0.5 x10^3/uL (0.0-0.7) Basophils # (Auto) 0.1 x10^3/uL (0.0-0.2) Sodium Level 140 mmol/L (136-145) Potassium Level 4.1 mmol/L (3.5-5.1) Chloride Level 103 mmol/L (98-107) Carbon Dioxide Level 28 mmol/L (21-32) Anion Gap 9 (6-14) Blood Urea Nitrogen 18 mg/dL (8-26) Creatinine 0.9 mg/dL (0.7-1.3) Estimated GFR (Cockcroft-Gault) 92.1 BUN/Creatinine Ratio 20 (6-20) Glucose Level 95 mg/dL (70-99) Calcium Level 9.5 mg/dL (8.5-10.1) Total Bilirubin 0.2 mg/dL (0.2-1.0) Aspartate Amino Transferase (AST) 24 U/L (15-37) Alanine Aminotransferase (ALT) 43 U/L (16-63) Alkaline Phosphatase 58 U/L (46-116) Total Protein 8.1 g/dL (6.4-8.2) Albumin 4.1 g/dL (3.4-5.0) Albumin/Globulin Ratio 1.0 (1.0-1.7) Laboratory Tests 03/10/17 18:25 Laboratory Tests 03/10/17 18:25 EKG EKG [] Radiology/Procedures Radiology/Procedures Chest x-ray shows normal mediastinum and normal heart size no obvious free air pneumothorax or opacity. CT scan of the abdomen and pelvis with contrast on 05/19/2017 CLINICAL HISTORY: Epigastric abdominal pain for 3 days. TECHNIQUE: After the intravenous administration of 75 cc of Omnipaque 300 only, contiguous, 5 mm axial sections were obtained through the abdomen and pelvis. One or more of the following individualized dose reduction techniques were utilized for this study: 1. Automated exposure control. 2. Adjustment of the mA and/or kV according to patient size. 3. Use of iterative reconstruction technique. FINDINGS: Comparison study is dated 11/17/2016. Images through the lung bases demonstrate a 3 mm nodular opacity involving the right lower lobe which has a nonspecific CT appearance. This area was not included on the previous examination. The liver, spleen, pancreas, adrenal glands and kidneys are within normal limits. The abdominal aorta tapers normally. The gallbladder is well-distended. No free fluid or free air is seen within the abdomen. There is no evidence of bowel obstruction. The appendix is well-visualized and is within normal limits. Images through the pelvis demonstrate the urinary bladder distended with urine. Calcifications are seen within the prostate gland. No free fluid is noted. Minimal S-shaped curvature of the thoracolumbar spine is seen. IMPRESSION: No acute abnormality is seen. Electronically signed by: Koffi Zarco MD (03/10/2017 7:05 PM) [id number] DICTATED and SIGNED BY: KOFFI ZARCO MD DATE: 03/10/17 9235 Course & Med Decision Making Course & Med Decision Making Patient with multiple complaints likely related to his cough and viral syndrome. Labs chest x-ray CT and reassess. Patient's workup is benign and he is feeling much better after breathing treatment and symptomatically treatment here. Given patient appears well with normal vital signs benign physical exam and workup he'll be charged with supportive treatment including [place] albuterol Zithromax and told to follow with primary care provider later this week and come back to the ED sooner with worsening pain fevers vomiting or other general concerns. Abdominal pain is likely abdominal wall strain and recommended supportive treatment for that as well. Dragon Disclaimer Dragon Disclaimer This electronic medical record was generated, in whole or in part, using a voice recognition dictation system. Departure Departure Impression: Primary Impression: Bronchitis Additional Impressions: Abdominal pain Wheezing Disposition: 01 HOME, SELF-CARE Condition: GOOD Referrals: NO PCP (PCP) Patient Instructions: Acute Bronchitis Additional Instructions: USE OTC NASONEX FOR YOUR CONGESTION. DRINK PLENTY OF FLUIDS AND EAT A GOOD DIET. FOLLOW WITH YOUR PRIMARY CARE PROVIDER AND COME BACK TO THE ED SOONER WITH ANY NEW OR WORSENING SYMPTOMS. THANK YOU! Scripts Azithromycin (ZITHROMAX) 250 Mg Tablet 1 PKG PO UD, #6 TAB Prov: MITCHELL GUERRA DO 03/10/17 Hydrocodone/Apap 5-325 (NORCO 5-325 TABLET) 1 Each Tablet 1 TAB PO PRN Q6HRS Y for PAIN, #14 TAB 0 Refills Prov: MITCHELL GUERRA DO 03/10/17 Albuterol Sulfate (PROAIR HFA INHALER) 8.5 Gm Hfa.aer.ad 1 PUFF INH Q4HRS Y for SHORTNESS OF BREATH, #1 INHALER 0 Refills Prov: MITCHELL GUERRA DO 03/10/17 Problem Qualifiers MITCHELL GUERRA DO Mar 10, 2017 18:59
--- NOTE | 2017-03-10 19:08 | RAD ---
CT scan of the abdomen and pelvis with contrast on 05/19/2017 CLINICAL HISTORY: Epigastric abdominal pain for 3 days. TECHNIQUE: After the intravenous administration of 75 cc of Omnipaque 300 only, contiguous, 5 mm axial sections were obtained through the abdomen and pelvis. One or more of the following individualized dose reduction techniques were utilized for this study: 1. Automated exposure control. 2. Adjustment of the mA and/or kV according to patient size. 3. Use of iterative reconstruction technique. FINDINGS: Comparison study is dated 11/17/2016. Images through the lung bases demonstrate a 3 mm nodular opacity involving the right lower lobe which has a nonspecific CT appearance. This area was not included on the previous examination. The liver, spleen, pancreas, adrenal glands and kidneys are within normal limits. The abdominal aorta tapers normally. The gallbladder is well-distended. No free fluid or free air is seen within the abdomen. There is no evidence of bowel obstruction. The appendix is well-visualized and is within normal limits. Images through the pelvis demonstrate the urinary bladder distended with urine. Calcifications are seen within the prostate gland. No free fluid is noted. Minimal S-shaped curvature of the thoracolumbar spine is seen. IMPRESSION: No acute abnormality is seen. Electronically signed by: Koffi Cosby MD (03/10/2017 7:05 PM) [id number]
[2017-03-10 19:28] VITALS: BP 126/65
[2017-03-10] MEDS ORDERED: AZIT250T PO (19:44)
[2017-03-10] MEDS ORDERED: PROAIR HFA8.5 GM INH (19:44)
[2017-03-10] MEDS ORDERED: HYDR-971 PO (19:44)
--- NOTE | 2017-03-11 08:12 | RAD ---
Portable chest, 03/10/2017: History: Cough, shortness of breath The heart size and pulmonary vascularity are normal. The lungs are clear. There is no evidence of pleural fluid. IMPRESSION: No acute cardiopulmonary abnormality is detected.
== END 2017-03-10 19:55 | disposition home or self-care (01) ==
LOC: ER 17:15
DX: J40 Bronchitis, not specified as acute or chronic (principal); R10.33 Periumbilical pain; F41.9 Anxiety disorder, unspecified; I10 Essential (primary) hypertension; G89.29 Other chronic pain; G62.9 Polyneuropathy, unspecified; Z88.0 Allergy status to penicillin; Z88.5 Allergy status to narcotic agent; Z88.6 Allergy status to analgesic agent
CPT/HCPCS: 36415; 71010; 74177; 80053; 85025; 94250; 94640; 96374; 99285; J1100; J7620; Q9967

== ENCOUNTER 2017-03-22 18:05 | Emergency (ER) | payer SELFPAY ==
[~2017-03-22 18:05] MED LIST changes: +AZIT250T PO
[2017-03-22 18:55] VITALS: BP 128/83
--- NOTE | 2017-03-22 19:14 | PHYS DOC ---
Past Medical History Past Medical History: Anxiety, Hypertension, Other Additional Past Medical Histor: neuropathy, chronic back pain, COLITIS, diarrhea Past Surgical History: Other Additional Past Surgical Histo: HERNIA REPAIR Alcohol Use: None Drug Use: None Adult General Chief Complaint Chief Complaint: HAND PROBLEM HPI HPI Patient is a 41 year old male who presents to the ED complaining of right hand injury x 3 hours. States he slipped and fell hitting his hand while going downstairs. Describes as sharp, rates pain as 8 out of 10. Denies head/neck injury, LOC, vision changes, nausea/vomiting. Review of Systems Review of Systems Constitutional: Denies fever or chills [] Eyes: Denies change in visual acuity, redness, or eye pain [] HENT: Denies nasal congestion or sore throat [] Respiratory: Denies cough or shortness of breath [] Cardiovascular: No additional information not addressed in HPI [] GI: Denies abdominal pain, nausea, vomiting, bloody stools or diarrhea [] : Denies dysuria or hematuria [] Musculoskeletal: Denies back pain. Complains of right hand pain. [] Integument: Denies rash or skin lesions [] Neurologic: Denies headache, focal weakness or sensory changes [] Endocrine: Denies polyuria or polydipsia [] Current Medications Current Medications Current Medications Medications (Trade) Dose Ordered Sig/[place]alia Start Time Stop Time Status Last Admin Dose Admin Acetaminophen/ Hydrocodone Bitart (Lortab 5/325) 1 tab 1X ONCE 03/22/17 19:30 03/22/17 19:31 DC 03/22/17 19:40 1 TAB Allergies Allergies Allergies Coded Allergies Type Severity Reaction Last Updated Verified ketorolac Allergy Severe HIVES 06/14/16 No Penicillins Allergy Intermediate 06/14/16 Yes tramadol Allergy Intermediate HIVES 06/14/16 Yes Physical Exam Physical Exam Constitutional: Well developed, well nourished, no acute distress, non-toxic appearance. [] HENT: Normocephalic, atraumatic, bilateral external ears normal, oropharynx moist, no oral exudates, nose normal. [] Eyes: PERRLA, EOMI, conjunctiva normal, no discharge. [] Neck: Normal range of motion, no tenderness, supple, no stridor. [] Cardiovascular:Heart rate regular rhythm, no murmur [] Lungs & Thorax: Bilateral breath sounds clear to auscultation [] Abdomen: Bowel sounds normal, soft, no tenderness, no masses, no pulsatile masses. [] Skin: Warm, dry, no erythema, no rash. [] Back: No tenderness, no CVA tenderness. [] Extremities: MILD RIGHT FOURTH AND FIFTH METACARPAL TENDERNESS/SWELLING. No cyanosis, no clubbing, ROM intact, no edema. [] Neurologic: Alert and oriented X 3, normal motor function, normal sensory function, no focal deficits noted. [] Psychologic: Affect normal, judgement normal, mood normal. [] Current Patient Data Vital Signs Vital Signs Date Time Temp Pulse Resp B/P (MAP) Pulse Ox O2 Delivery O2 Flow Rate FiO2 03/22/17 18:55 98.1 82 20 97 Room Air 98.1 EKG EKG [] Radiology/Procedures Radiology/Procedures X-ray shows fifth metacarpal fracture. Patient placed in boxer splint. Neurovascular intact post placement. Discussed follow-up with orthopedics in 1- 2 days. Provided contact information/education. Discussed reasons to return to the ED. Patient understands and agrees with plan.[] Course & Med Decision Making Course & Med Decision Making Pertinent Labs and Imaging studies reviewed. (See chart for details) [] Dragon Disclaimer Dragon Disclaimer This electronic medical record was generated, in whole or in part, using a voice recognition dictation system. Departure Departure Impression: Primary Impression: Sergio's fracture Disposition: 01 HOME, SELF-CARE Condition: STABLE Referrals: NO PCP (PCP) JORDYN PARADA MD Patient Instructions: Boxer's Fracture Scripts Hydrocodone/Apap 5-325 (NORCO 5-325 TABLET) 1 Each Tablet 1 TAB PO TID, #10 TAB Prov: KENDAL ELLIS 03/22/17 KENDAL ELLIS Mar 22, 2017 19:14
[2017-03-22] MEDS ORDERED: HYDROcodone/APAP 5/325MG 1 TAB TABLET PO ONE (19:30)
[2017-03-22] MEDS ORDERED: HYDR-971 PO (19:56)
--- NOTE | 2017-03-23 10:21 | RAD ---
Three-view right hand radiographs 03/22/2017 Clinical history: Injury to the right hand. PA, lateral, and oblique digital radiographs of the right hand were obtained. An acute transverse fracture of the distal diaphysis/metaphysis of the right fifth metacarpal is seen. Mild volar angulation of the distal fracture fragment is noted. The fracture does not extend to involve the MCP joint. No additional fracture is seen. Impression: Acute fracture of the distal right fifth metacarpal as outlined above.
== END 2017-03-22 20:14 | disposition home or self-care (01) ==
LOC: ER 18:05
DX: S62.396A Other fracture of fifth metacarpal bone, right hand, initial encounter for closed fracture (principal); F41.9 Anxiety disorder, unspecified; I10 Essential (primary) hypertension; G89.29 Other chronic pain; G62.9 Polyneuropathy, unspecified; Z88.0 Allergy status to penicillin; Z88.5 Allergy status to narcotic agent; Z88.8 Allergy status to other drugs, medicaments and biological substances; W10.9XXA Fall (on) (from) unspecified stairs and steps, initial encounter; Y93.89 Activity, other specified; Y92.89 Other specified places as the place of occurrence of the external cause; Y99.8 Other external cause status
CPT/HCPCS: 29125; 73130; 99284-25

== ENCOUNTER 2017-03-24 15:50 | Emergency (ER) | payer SELFPAY ==
[2017-03-24 16:08] VITALS: BP 145/96
[2017-03-24] MEDS ORDERED: HYDROcodone/APAP 5/325MG 1 TAB TABLET PO ONE (17:30)
--- NOTE | 2017-03-24 21:09 | PHYS DOC ---
Past Medical History Past Medical History: Anxiety, Hypertension, Other Additional Past Medical Histor: neuropathy, chronic back pain, COLITIS, diarrhea Past Surgical History: Other Additional Past Surgical Histo: HERNIA REPAIR Alcohol Use: None Drug Use: None Adult General Chief Complaint Chief Complaint: HAND PROBLEM HPI HPI Patient is a 41 year old right handed male seen in the emergency department approximately 2 days ago for fracture of right hand placed in splint presents with increased pain in medication refill request. Patient states he ran out of his 10 hydrocodone. He is to remove the splint been using his right hand. Review of Systems Review of Systems ROS as per HPI. Current Medications Current Medications Current Medications Medications (Trade) Dose Ordered Sig/Idalia Start Time Stop Time Status Last Admin Dose Admin Acetaminophen/ Hydrocodone Bitart (Lortab 5/325) 1 tab 1X ONCE 03/24/17 17:30 03/24/17 17:34 DC 03/24/17 17:44 1 TAB Allergies Allergies Allergies Coded Allergies Type Severity Reaction Last Updated Verified ketorolac Allergy Severe HIVES 06/14/16 No Penicillins Allergy Intermediate 06/14/16 Yes tramadol Allergy Intermediate HIVES 06/14/16 Yes Physical Exam Physical Exam Constitutional: Well developed, well nourished, no acute distress, non-toxic appearance. [] Extremity: Right hand pain, tenderness and swelling over the fifth MCP consistent with boxer's fracture. Alignment preserved.[] Psychologic: Affect normal, right hand, no neurovascular deficit.. [] Current Patient Data Vital Signs Vital Signs Date Time Temp Pulse Resp B/P (MAP) Pulse Ox O2 Delivery O2 Flow Rate FiO2 03/24/17 16:08 98.0 100 18 100 Room Air 98.0 EKG EKG [] Radiology/Procedures Radiology/Procedures [] Course & Med Decision Making Course & Med Decision Making Pertinent Labs and Imaging studies reviewed. (See chart for details) [Patient re-splinted and given pain medication ED. Patient given Percogesic for discharge upon returning home] Darianon Disclaimer Dragon Disclaimer This electronic medical record was generated, in whole or in part, using a voice recognition dictation system. Departure Departure Impression: Primary Impression: Hand pain, right Disposition: 01 HOME, SELF-CARE Condition: GOOD Patient Instructions: Splint Care, [id number] Additional Instructions: Please wear splint and follow-up with your doctor as scheduled. Take pain medication as prescribed. Do not rink alcohol, drive or perform any dangerous activity while on pain medication. SEEMA LING DO Mar 24, 2017 21:09
== END 2017-03-24 17:46 | disposition home or self-care (01) ==
LOC: ER 15:50
DX: M79.641 Pain in right hand (principal); I10 Essential (primary) hypertension; G89.29 Other chronic pain; Z88.0 Allergy status to penicillin; Z88.6 Allergy status to analgesic agent
CPT/HCPCS: 29125; 99284-25

== ENCOUNTER 2017-09-08 14:17 | Emergency (ER) | payer SELFPAY ==
[2017-09-08] MEDS: ACETAMINOPHEN 500 MG TABLET PO (15:00)
== END 2017-09-08 15:36 | disposition home or self-care (01) ==
LOC: ER 14:17
DX: M79.662 Pain in left lower leg (principal); G89.29 Other chronic pain; F41.9 Anxiety disorder, unspecified; I10 Essential (primary) hypertension; Z88.0 Allergy status to penicillin; Z88.5 Allergy status to narcotic agent; Z88.8 Allergy status to other drugs, medicaments and biological substances
CPT/HCPCS: 93971; 99284-25

== ENCOUNTER 2018-04-12 21:12 | Emergency (ER) | payer SELFPAY ==
[~2018-04-12] VITALS: Ht 170.2 cm; Wt 90.7 kg
[~2018-04-12 21:12] MED LIST changes: -METO50TA2 PO; +METO50TA6 PO; +NAPR-514 PO; +NAPR-683 PO; -NAPR500T PO; -NAPR500T3 PO
[2018-04-12 21:15] VITALS: BP 162/85
--- NOTE | 2018-04-12 21:34 | PHYS DOC ---
Past Medical History Past Medical History: Anxiety, Hypertension, Other Additional Past Medical Histor: neuropathy, chronic back pain, COLITIS, diarrhea Past Surgical History: Other Additional Past Surgical Histo: HERNIA REPAIR Alcohol Use: None Drug Use: None Adult General Chief Complaint Chief Complaint: GROIN PAIN HPI HPI Patient is a 42 year old male with history of hypertension, anxiety, who presents today requesting to be treated for STDs. The significant other tested positive for gonorrhea and chlamydia. Patient states he has dysuria. Patient also requesting we examine an abscess on his pubic area that he has had for a couple weeks. Patient states the area opened up and drained but is still red and painful. Review of Systems Review of Systems Constitutional: Denies fever or chills [] GI: Denies abdominal pain, nausea, vomiting, bloody stools or diarrhea [] : Reports dysuria and concern for STDs hematuria [] Musculoskeletal: Denies back pain or joint pain [] Integument:pubic abscess Neurologic: Denies headache, focal weakness or sensory changes [] All other systems were reviewed and found to be within normal limits, except as documented in this note. Current Medications Current Medications Current Medications Medications (Trade) Dose Ordered Sig/Idalia Start Time Stop Time Status Last Admin Dose Admin Azithromycin (Zithromax) 1,000 mg 1X ONCE 04/12/18 22:00 04/12/18 22:01 Ceftriaxone Sodium (Rocephin Im) 250 mg 1X ONCE 04/12/18 22:00 04/12/18 22:01 Metronidazole (Flagyl) 2,000 mg 1X ONCE 04/12/18 22:00 04/12/18 22:01 Allergies Allergies Allergies Coded Allergies Type Severity Reaction Last Updated Verified ketorolac Allergy Severe HIVES 06/14/16 No Penicillins Allergy Intermediate 06/14/16 Yes tramadol Allergy Intermediate HIVES 06/14/16 Yes Physical Exam Physical Exam Constitutional: Well developed, well nourished, no acute distress, non-toxic appearance. [] Abdomen: Bowel sounds normal, soft, no tenderness, no masses, no pulsatile masses. [] Skin: Warm, dry, pubic with a firm non indurated area approx. 1X1cm with no drainage, no fluctuance. The area feels warm. Couple areas of cellulitis also noted around the upper part of the pubic region. This is likely ingrown hairs causing this infection. Back: No tenderness, no CVA tenderness. [] Extremities: No tenderness, no cyanosis, no clubbing, ROM intact, no edema. [] Neurologic: Alert and oriented X 3, normal motor function, normal sensory function, no focal deficits noted. [] Psychologic: Affect normal, judgement normal, mood normal. [] EKG EKG [] Radiology/Procedures Radiology/Procedures [] Course & Med Decision Making Course & Med Decision Making Pertinent Labs and Imaging studies reviewed. (See chart for details) This is a 42-year-old male patient presenting to the ED today to be treated for STDs. Patient was given the standard STD treatment and discharged. Safe sex education provided. Follow-up with the health department or PCP as needed. Patient also has an infected ingrown hair on his pubic region. Discharged on Bactrim and Bactroban. Follow-up with PCP in 1-2 weeks as needed. Tetanus up-to- date. Dragon Disclaimer Dragon Disclaimer This electronic medical record was generated, in whole or in part, using a voice recognition dictation system. Departure Departure Impression: Primary Impression: Sexually transmitted disease Additional Impression: Ingrown hair Disposition: HOME, SELF-CARE Condition: STABLE Referrals: NO PCP (PCP) Follow-up with your doctor in one week Patient Instructions: Ingrown Hair, Sexually Transmitted Disease Additional Instructions: You were evaluated in the emergency room for sexually transmitted diseases. We treated you today. Do not have sex for 2 weeks. Use protection at all times. Ensure you contact all your sex partners, let them know you were treated for STDs and ask them to seek treatment too. Please complete your antibiotics for infection. Apply warm compresses to the pubic area twice a day. Do not shave the pubic area until the infection has cleared out. Scripts Sulfamethoxazole/Trimethoprim (BACTRIM DS TABLET) 1 Each Tablet 1 TAB PO BID, #20 TAB Prov: ANIKET RYDER APRN 04/12/18 Problem Qualifiers ANIKET RYDER APRN Apr 12, 2018 21:34
[2018-04-12] MEDS ORDERED: SULF1TAB24 PO (21:44)
[2018-04-12 21:50] LABS: BILIRUBIN,URINE NEGATIVE (NEG); CLARITY,URINE CLEAR; COLOR,URINE YELLOW; NITRITE,URINE NEGATIVE (NEG); PROTEIN,URINE NEGATIVE (NEG-TRACE); UROBILINOGEN,URINE 0.2 mg/dL (0.2 mg/dL)
[2018-04-12] MEDS: cefTRIAXone IM 250 MG VIAL IM ONE (21:52)
[2018-04-12] MEDS: metroNIDAZOLE 500 MG TABLET PO ONE (21:53)
[2018-04-12] MEDS: HYDROcodone/APAP 5/325MG 1 TAB TABLET PO ONE (21:54)
[2018-04-12] MEDS: AZITHROMYCIN 250 MG TABLET. PO ONE (21:54)
[2018-04-12 21:55] LABS: BACTERIA,URINE 0 /HPF (0-FEW); RBC,URINE OCC /HPF (0-2)
[2018-04-12 21:56] LABS: SQUAMOUS EPITHELIAL CELL,UR OCC /LPF
== END 2018-04-12 22:19 | disposition home or self-care (01) ==
LOC: ER 21:12
DX: A63.8 Other specified predominantly sexually transmitted diseases (principal); L73.1 Pseudofolliculitis barbae; R30.0 Dysuria; L02.818 Cutaneous abscess of other sites; F41.9 Anxiety disorder, unspecified; I10 Essential (primary) hypertension; G89.29 Other chronic pain; Z88.0 Allergy status to penicillin; Z88.5 Allergy status to narcotic agent; Z88.8 Allergy status to other drugs, medicaments and biological substances
CPT/HCPCS: 81001; 87491; 87591; 96372; 99284; J0696; Q0144

== ENCOUNTER 2018-07-01 21:45 | Emergency (ER) | payer OTHER ==
[~2018-07-01] VITALS: Ht 167.6 cm; Wt 90.7 kg
[~2018-07-01 21:45] MED LIST changes: +ALBU2.5V8 INH; -HYDR-2758 PO; +HYDR-2761 PO; +HYDR-3164 PO; -HYDR-971 PO; +METR-84 PO; -METR500T8 PO; -OXYC-323 PO; +OXYC1TAB15 PO; -PROAIR HFA8.5 GM INH; +SULF1TAB24 PO
[2018-07-01 22:00] VITALS: BP 131/75
[2018-07-01] MEDS ORDERED: HYDROcodone/APAP 5/325MG 1 TAB TABLET PO ONE (22:30)
[2018-07-01] MEDS ORDERED: HYDR-3164 PO (22:40)
--- NOTE | 2018-07-01 22:53 | PHYS DOC ---
Past Medical History Past Medical History: Anxiety, Hypertension, Other Additional Past Medical Histor: neuropathy, chronic back pain, COLITIS, diarrhea Past Surgical History: Other Additional Past Surgical Histo: HERNIA REPAIR Alcohol Use: None Drug Use: None Adult General Chief Complaint Chief Complaint: MULTIPLE COMPLAINTS HPI HPI Patient is a 42 year old male is presenting with shoulder pain. He felt a pop when he was lifting something at his job. Pain is moderate to severe nonradiating in addition he has a bump above his pubic hair comes and goes. Review of Systems Review of Systems Constitutional: Denies fever or chills [] Eyes: Denies change in visual acuity, redness, or eye pain [] Respiratory: mild sob getting better since he is trying to quit smoking. Cardiovascular: No additional information not addressed in HPI [] Integument: Neurologic: Denies headache, focal weakness or sensory changes [] Endocrine: Denies polyuria or polydipsia [] All other systems were reviewed and found to be within normal limits, except as documented in this note. Current Medications Current Medications Current Medications Medications (Trade) Dose Ordered Sig/Idalia Start Time Stop Time Status Last Admin Dose Admin Acetaminophen/ Hydrocodone Bitart (Lortab 5/325) 2 tab 1X ONCE 07/01/18 22:30 07/01/18 22:31 DC 07/01/18 22:37 2 TAB Allergies Allergies Allergies Coded Allergies Type Severity Reaction Last Updated Verified ketorolac Allergy Severe HIVES 06/14/16 No tramadol Allergy Intermediate HIVES 06/14/16 Yes Physical Exam Physical Exam Constitutional: Well developed, well nourished, no acute distress, non-toxic appearance. [] HENT: Normocephalic, atraumatic, bilateral external ears normal, oropharynx moist, no oral exudates, nose normal. [] Eyes: PERRLA, EOMI, conjunctiva normal, no discharge. [] Neck: Normal range of motion, no tenderness, supple, no stridor. [] Cardiovascular:Heart rate regular rhythm, no murmur [] Lungs & Thorax: scattered wheeze. Abdomen: Bowel sounds normal, soft, no tenderness, no masses, no pulsatile masses. [] Skin small tiny healing folliculiits above pubic hair no signs of induration erythema or fluctuance Extremities: ac joint ttp mild distal strenght and sens intact Neurologic: Alert and oriented X 3, normal motor function, normal sensory function, no focal deficits noted. [] Psychologic: Affect normal, judgement normal, mood normal. [] Current Patient Data Vital Signs Vital Signs Date Time Temp Pulse Resp B/P (MAP) Pulse Ox O2 Delivery O2 Flow Rate FiO2 07/01/18 22:37 18 98 Room Air 07/01/18 22:00 98.6 97 131/75 (93) 98.6 EKG EKG [] Radiology/Procedures Radiology/Procedures [] Impressions: shoulder xray neg acute my read Course & Med Decision Making Course & Med Decision Making Pertinent Labs and Imaging studies reviewed. (See chart for details) probably grade 1 ac joint sep xray neg prelim read short course pain control sling time off work rturn prec discussed counseled on tobacco cessation [] Dragon Disclaimer Dragon Disclaimer This electronic medical record was generated, in whole or in part, using a voice recognition dictation system. Departure Departure Impression: Primary Impression: Shoulder pain Additional Impression: Encounter for tobacco use cessation counseling Disposition: HOME, SELF-CARE Condition: STABLE Referrals: NO PCP (PCP) Patient Instructions: Shoulder Pain, Aigl-vc-Hpli Scripts Hydrocodone/Apap 5-325 (NORCO 5-325 TABLET) 1 Each Tablet 1-2 EACH PO PRN Q6HRS PRN for PAIN, #15 as needed for pain Prov: MATHIEU DILLON MD 07/01/18 Problem Qualifiers MATHIEU DILLON MD Jul 01, 2018 22:52
--- NOTE | 2018-07-01 23:27 | RAD ---
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 Findings: There is no acute fracture or dislocation. There is acromioclavicular arthropathy. There is narrowing of the acromiohumeral distance suggesting chronic rotator cuff pathology. The visualized lung is clear. There is no evidence of a displaced rib fracture. There is no soft tissue abnormality. IMPRESSION: No acute fracture or dislocation. Electronically signed by: Daniel Koo MD (07/01/2018 11:23 PM) [facility]
== END 2018-07-01 22:45 | disposition home or self-care (01) ==
LOC: ER 21:45
DX: M25.512 Pain in left shoulder (principal); Z71.6 Tobacco abuse counseling; I10 Essential (primary) hypertension; G89.29 Other chronic pain; Z88.6 Allergy status to analgesic agent; X50.9XXA Other and unspecified overexertion or strenuous movements or postures, initial encounter; Y93.89 Activity, other specified; Y92.69 Other specified industrial and construction area as the place of occurrence of the external cause; Y99.0 Civilian activity done for income or pay
CPT/HCPCS: 73030; 99283

== ENCOUNTER 2018-12-15 11:12 | Emergency (ER) | payer SELFPAY ==
[~2018-12-15] VITALS: Ht 167.6 cm; Wt 104.3 kg
[~2018-12-15 11:12] MED LIST changes: +METR-34 PO; -METR-84 PO
[2018-12-15 12:30] VITALS: BP 158/88
--- NOTE | 2018-12-15 12:51 | PHYS DOC ---
Past Medical History Past Medical History: Anxiety, Hypertension, Other Additional Past Medical Histor: neuropathy, chronic back pain, COLITIS, diarrhea Past Surgical History: Other Additional Past Surgical Histo: HERNIA REPAIR Alcohol Use: None Drug Use: None Adult General Chief Complaint Chief Complaint: THUMB HPI HPI 43-year-old male presents to ER for complaints of left thumb injury. Patient reports just prior to arrival he slammed his left thumb in the car door causing a laceration to the top of his thumb. Patient denies any other injury. Patient reports he is up-to-date on tetanus within the past 5 years. He denies any [id number] medications prior to arrival. Pt is rt hand dominant. Review of Systems Review of Systems Musculoskeletal: Denies back pain. Reports lt thumb pain Integument: Reports laceration lt thumb Neurologic: Denies focal weakness or sensory changes [] All other systems were reviewed and found to be within normal limits, except as documented in this note. Current Medications Current Medications Current Medications Medications (Trade) Dose Ordered Sig/Idalia Start Time Stop Time Status Last Admin Dose Admin Acetaminophen (Tylenol) 650 mg 1X ONCE 12/15/18 14:45 12/15/18 14:45 DC 12/15/18 14:10 650 MG Ibuprofen (Motrin) 600 mg 1X ONCE 12/15/18 13:00 12/15/18 13:01 DC Allergies Allergies Allergies Coded Allergies Type Severity Reaction Last Updated Verified ketorolac Allergy Severe HIVES 06/14/16 No tramadol Allergy Intermediate HIVES 06/14/16 Yes Physical Exam Physical Exam Constitutional: Well developed, well nourished, no acute distress, non-toxic appearance. [] HENT: Normocephalic, atraumatic, oropharynx moist, nose normal. [] Eyes: Pupils equal, conjunctiva normal, no discharge. [] Neck: Normal range of motion, supple Cardiovascular:Heart rate regular Lungs & Thorax: Resp. equal/nonlabored Skin: Warm, dry Extremities: No cyanosis, no clubbing, ROM intact, no edema. 2+ lt radial. approx. 1 cm laceration to proximal lt thumb- no swelling/ecchymosis/active bleeding. Tender on palp. Brisk cap refill. Full ROM of all lt fingers. No tenderness lt wrist w/full ROM. Neurologic: Alert and oriented X 3, normal motor function, normal sensory function, no focal deficits noted. [] Psychologic: Affect normal, judgement normal, mood normal. [] Current Patient Data Vital Signs Vital Signs Date Time Temp Pulse Resp B/P (MAP) Pulse Ox O2 Delivery O2 Flow Rate FiO2 12/15/18 12:30 97.8 78 20 158/88 (111) 96 Room Air 97.8 EKG EKG [] Radiology/Procedures Radiology/Procedures PROCEDURE: FINGER(S) LEFT Examination: FINGER(S) LEFT History: Left thumb slammed in the door Comparison/Correlation: None Findings: PA view of the hand additional 2 views of the left thumb. Joint spaces are normal. No acute fracture or bony destruction. Soft tissues are unremarkable. No radiopaque foreign body. No degenerative change. Impression: No acute process. Electronically signed by: Tin Nicholas MD (12/15/2018 1:15 PM) [id number] DICTATED and SIGNED BY: TIN NICHOLAS MD DATE: 12/15/18 1315 Laceration Repair by me: Anesthesia: None Location: Proximal dorsal surface of lt thumb- no joint involvement Tendon/Joint/Nerves: No injury- flexor tendon intact against resistance lt fingers/thumb Foreign body: None detected after copious irrigation and exploration. Wound superficial Technique: Dermabond Complexity: No subcutaneous sutures//edge excision Post Closure Length: 1 cm Patient's bleeding was easily controlled in the department and there is no indication of anemia. No evidence of compartment syndrome, neurologic injury, vascular injury, open joint, tendon laceration, or foreign body. Patient is appropriate for outpatient follow up. 48 hour wound check. Scar minimization instructions given. Course & Med Decision Making Course & Med Decision Making Pertinent Imaging studies reviewed. (See chart for details) Pt was evaluated in the ER for complaints of left thumb injury. X-ray was obtained with no acute findings on images. X-ray results discussed with patient. He was provided with ice pack and dose of pain medication while in the ER. Wound was cleansed and on reevaluation was found to be superficial Dermabond was used for wound closure. Patient remained PMS intact in left upper extremity. Patient will be placed in aluminum splint for finger protection advised if symptoms persist he could follow up with his primary care physician and/or orthopedics for reevaluation and further care. Education provided on signs and symptoms to return to ER. Discharge instructions were discussed. Dragon Disclaimer Dragon Disclaimer This electronic medical record was generated, in whole or in part, using a voice recognition dictation system. Departure Departure Impression: Primary Impression: Injury of left thumb Disposition: 01 HOME, SELF-CARE Condition: STABLE Referrals: NO PCP (PCP) DENNY MILES MD Patient Instructions: Crush Injury, Fingers or Toes, Stitches, Stefan or Skin Adhesive Strips, [id number] Additional Instructions: Ice pack to affected area every 3-4 hours for 20-30 minutes at a time. Follow-up with an orthopedic doctor and/or your primary care physician to continue to have symptoms or concerns. Continue your home medications as prescribed. Wear the aluminum splint on her left thumb until Dermabond peels away do not pick at the adhesive- can remove splint to perform range of motion of left thumb. JAM MAKI APRN Dec 15, 2018 12:51
[2018-12-15] MEDS ORDERED: IBUPROFEN 200 MG TABLET. PO ONE (13:00)
--- NOTE | 2018-12-15 13:18 | RAD ---
Examination: FINGER(S) LEFT History: Left thumb slammed in the door Comparison/Correlation: None Findings: PA view of the hand additional 2 views of the left thumb. Joint spaces are normal. No acute fracture or bony destruction. Soft tissues are unremarkable. No radiopaque foreign body. No degenerative change. Impression: No acute process. Electronically signed by: Tin Caldwell MD (12/15/2018 1:15 PM) [id number]
[2018-12-15] MEDS ORDERED: ACETAMINOPHEN 325 MG TABLET. PO ONE (14:45)
== END 2018-12-15 14:21 | disposition home or self-care (01) ==
LOC: ER 11:12
DX: S61.012A Laceration without foreign body of left thumb without damage to nail, initial encounter (principal); F41.9 Anxiety disorder, unspecified; I10 Essential (primary) hypertension; G89.29 Other chronic pain; Z88.5 Allergy status to narcotic agent; Z88.8 Allergy status to other drugs, medicaments and biological substances; W23.0XXA Caught, crushed, jammed, or pinched between moving objects, initial encounter; Y93.89 Activity, other specified; Y92.89 Other specified places as the place of occurrence of the external cause; Y99.8 Other external cause status
CPT/HCPCS: 12001; 73140; 99284

== ENCOUNTER 2019-03-06 00:47 | Emergency (ER) | payer MEDICARE ==
[~2019-03-06] VITALS: Ht 172.7 cm; Wt 86.2 kg
[2019-03-06 01:04] VITALS: BP 106/71
[2019-03-06] MEDS ORDERED: HYDROcodone/APAP 5/325MG 1 TAB TABLET PO ONE ×2 (01:45)
[2019-03-06] MEDS ORDERED: HYDR-3164 PO (02:26)
--- NOTE | 2019-03-06 02:26 | PHYS DOC ---
Past Medical History Past Medical History: No Pertinent History Additional Past Medical Histor: neuropathy, chronic back pain, COLITIS, diarrhea Past Surgical History: Other Additional Past Surgical Histo: HERNIA REPAIR Alcohol Use: None Drug Use: None Adult General Chief Complaint Chief Complaint: FOOT INJURY PAIN [facility] HPI Patient is a 43 year old [f__sex] who presents with [] Review of Systems Review of Systems Constitutional: Denies fever or chills [] Eyes: Denies change in visual acuity, redness, or eye pain [] HENT: Denies nasal congestion or sore throat [] Respiratory: Denies cough or shortness of breath [] Cardiovascular: No additional information not addressed in HPI [] GI: Denies abdominal pain, nausea, vomiting, bloody stools or diarrhea [] : Denies dysuria or hematuria [] Musculoskeletal: Denies back pain or joint pain [] Integument: Denies rash or skin lesions [] Neurologic: Denies headache, focal weakness or sensory changes [] Endocrine: Denies polyuria or polydipsia [] All other systems were reviewed and found to be within normal limits, except as documented in this note. Current Medications Current Medications Current Medications Medications (Trade) Dose Ordered Sig/Idalia Start Time Stop Time Status Last Admin Dose Admin Acetaminophen/ Hydrocodone Bitart (Lortab 5/325) 1 tab 1X ONCE 03/06/19 01:45 03/06/19 01:46 DC 03/06/19 01:49 1 TAB Allergies Allergies Allergies Coded Allergies Type Severity Reaction Last Updated Verified ketorolac Allergy Severe HIVES 06/14/16 No tramadol Allergy Intermediate HIVES 06/14/16 Yes Physical Exam Physical Exam Constitutional: Well developed, well nourished, no acute distress, non-toxic appearance. [] HENT: Normocephalic, atraumatic, bilateral external ears normal, oropharynx moist, no oral exudates, nose normal. [] Eyes: PERRLA, EOMI, conjunctiva normal, no discharge. [] Neck: Normal range of motion, no tenderness, supple, no stridor. [] Cardiovascular:Heart rate regular rhythm, no murmur [] Lungs & Thorax: Bilateral breath sounds clear to auscultation [] Abdomen: Bowel sounds normal, soft, no tenderness, no masses, no pulsatile masses. [] Skin: Warm, dry, no erythema, no rash. [] Back: No tenderness, no CVA tenderness. [] Extremities: No tenderness, no cyanosis, no clubbing, ROM intact, no edema. [] Neurologic: Alert and oriented X 3, normal motor function, normal sensory function, no focal deficits noted. [] Psychologic: Affect normal, judgement normal, mood normal. [] Current Patient Data Vital Signs Vital Signs Date Time Temp Pulse Resp B/P (MAP) Pulse Ox O2 Delivery O2 Flow Rate FiO2 03/06/19 01:49 Room Air 03/06/19 01:04 98.8 87 20 106/71 (83) 97 98.8 EKG EKG [] Radiology/Procedures Radiology/Procedures XR left foot 3V(preliminary interpretation by ED physician): NO acute fracture/dislocation appreciated. PROCEDURE: FOOT LEFT 3V Left foot 3 views. HISTORY: Pain left fifth metatarsal 3 views were taken the left foot. There is a linear nondisplaced fracture of the proximal left fifth metatarsal. No other fracture or acute osseous abnormality is noted. IMPRESSION: 1. Nondisplaced fracture proximal left fifth metatarsal. Electronically signed by: Irvin Osullivan MD (03/06/2019 2:42 AM) [facility] [place] Course & Med Decision Making Course & Med Decision Making Pertinent Labs and Imaging studies reviewed. (See chart for details) [] Dragon Disclaimer Dragon Disclaimer This electronic medical record was generated, in whole or in part, using a voice recognition dictation system. Departure Departure Impression: Primary Impression: Contusion of foot, left Disposition: 01 HOME, SELF-CARE Condition: STABLE Referrals: NO PCP (PCP) ROLA MONTES DE OCA II, MD Patient Instructions: Cast Care-SportsMed, Cast Shoe Additional Instructions: Use over the counter Ibuprofen (600mg which is 3 over the counter tabs) as needed for pain up to three times daily (every 8 hours). ICE area 20 min on/off for next few days. Scripts Hydrocodone/Apap 5-325 (NORCO 5-325 TABLET) 1 Each Tablet 0.5-1 TAB PO PRN Q6HRS PRN for PAIN, #10 TAB 0 Refills Prov: IVETH FUNEZ DO 03/06/19 Problem Qualifiers Primary Impression: Contusion of foot, left Encounter type: initial encounter Qualified Codes: S90.32XA - Contusion of left foot, initial encounter IVETH FUNEZ DO Mar 06, 2019 02:26
--- NOTE | 2019-03-06 02:45 | RAD ---
Left foot 3 views. HISTORY: Pain left fifth metatarsal 3 views were taken the left foot. There is a linear nondisplaced fracture of the proximal left fifth metatarsal. No other fracture or acute osseous abnormality is noted. IMPRESSION: 1. Nondisplaced fracture proximal left fifth metatarsal. Electronically signed by: Irvin Osullivan MD (03/06/2019 2:42 AM) [facility]
== END 2019-03-06 02:38 | disposition home or self-care (01) ==
LOC: ER 00:47
DX: S90.32XA Contusion of left foot, initial encounter (principal); G89.29 Other chronic pain; Z88.6 Allergy status to analgesic agent; W17.2XXA Fall into hole, initial encounter; Y93.89 Activity, other specified; Y92.89 Other specified places as the place of occurrence of the external cause; Y99.8 Other external cause status
CPT/HCPCS: 73630; 99284

== ENCOUNTER 2019-03-16 00:09 | Emergency (ER) | payer SELFPAY ==
[~2019-03-16] VITALS: Ht 167.6 cm; Wt 90.7 kg
--- NOTE | 2019-03-16 00:40 | PHYS DOC ---
Past Medical History Past Medical History: No Pertinent History Additional Past Medical Histor: neuropathy, chronic back pain, COLITIS, diarrhea (LOCO WASHINGTON APRN) Past Surgical History: Other Additional Past Surgical Histo: HERNIA REPAIR (LOCO WASHINGTON APRN) Alcohol Use: None Drug Use: None (LOCO WASHINGTON APRN) Adult General Chief Complaint Chief Complaint: FLANK PAIN [facility] HPI Patient is a 43 year old who presents with abdominal pain has been going on since this morning when he woke up. The patient also complains of nausea, vomiting, and loss of appetite. The patient states his pain level VII out of 10 in severity and sharp in since she's been taking Tylenol today. (LOCO WASHINGTON APRN) Review of Systems Review of Systems Constitutional: Reports fever or chills [] Eyes: Denies change in visual acuity, redness, or eye pain [] HENT: Denies nasal congestion or sore throat [] Respiratory: Denies cough or shortness of breath [] Cardiovascular: No additional information not addressed in HPI [] GI: Reports abdominal pain, nausea, vomiting. : Denies dysuria or hematuria [] Musculoskeletal: Denies back pain or joint pain [] Integument: Denies rash or skin lesions [] Neurologic: Denies headache, focal weakness or sensory changes [] Endocrine: Denies polyuria or polydipsia [] Complete systems were reviewed and found to be within normal limits, except as documented in this note. (LOCO WASHINGTON APRN) Current Medications Current Medications Current Medications Medications (Trade) Dose Ordered Sig/[place] Start Time Stop Time Status Last Admin Dose Admin Acetaminophen/ Hydrocodone Bitart (Lortab 5/325) 1 tab 1X ONCE 03/16/19 00:45 03/16/19 00:38 DC Info (CONTRAST GIVEN -- Rx MONITORING) 1 each PRN DAILY PRN 03/16/19 01:30 03/18/19 01:29 Iohexol (Omnipaque 300 Mg/ml) 75 ml 1X ONCE 03/16/19 02:00 03/16/19 02:01 DC 03/16/19 01:32 75 ML Ketorolac Tromethamine (Toradol 15mg Vial) 15 mg 1X ONCE 03/16/19 01:45 03/16/19 01:46 DC 03/16/19 01:44 15 MG Ondansetron HCl (Zofran) 4 mg 1X ONCE 03/16/19 01:00 03/16/19 01:01 DC 03/16/19 01:00 4 MG Sodium Chloride 1,000 ml @ 1,000 mls/hr 1X ONCE 03/16/19 01:00 03/16/19 01:59 DC 03/16/19 01:00 1,000 MLS/HR (LOCO FUNEZ DO) Allergies Allergies Allergies Coded Allergies Type Severity Reaction Last Updated Verified tramadol Allergy Intermediate HIVES 06/14/16 Yes (LOCO FUNEZ DO) Physical Exam Physical Exam Constitutional: Well developed, well nourished, no acute distress, non-toxic appearance. [] HENT: Normocephalic, atraumatic, bilateral external ears normal, oropharynx moist, no oral exudates, nose normal. [] Eyes: PERRLA, EOMI, conjunctiva normal, no discharge. [] Neck: Normal range of motion, no tenderness, supple, no stridor. [] Cardiovascular:Heart rate regular rhythm, no murmur [] Lungs & Thorax: Bilateral breath sounds clear to auscultation [] Abdomen: Bowel sounds normal, soft, RLQ tenderness with rebound, no masses, no pulsatile masses. [] Skin: Warm, dry, no erythema, no rash. [] Back: No tenderness, no CVA tenderness. [] Extremities: No tenderness, no cyanosis, no clubbing, ROM intact, no edema. [] Neurologic: Alert and oriented X 3, normal motor function, normal sensory function, no focal deficits noted. [] Psychologic: Affect normal, judgement normal, mood normal. [] (LOCO [place] APRN) Physical Exam Constitutional: Well developed, well nourished, no acute distress, non-toxic appearance HENT: Normocephalic, atraumatic, oropharynx moist Eyes: Conjunctiva normal, no discharge Neck: Normal range of motion, no tenderness, supple Cardiovascular: Heart rate normal, regular rhythm Lungs & Thorax: Bilateral breath sounds clear to auscultation, no wheezing Abdomen: Soft, mild RLQ tenderness Skin: Warm, dry, no erythema, no rash Back: No tenderness, no CVA tenderness Extremities: No tenderness, ROM intact, no edema Neurologic: Alert and oriented X 3, no focal deficits noted Psychologic: Affect normal, judgement normal (LOCO FUNEZ DO) Current Patient Data Vital Signs Vital Signs Date Time Temp Pulse Resp B/P (MAP) Pulse Ox O2 Delivery O2 Flow Rate FiO2 03/16/19 00:16 98.6 82 20 148/95 (112) 96 Room Air 98.6 (LOCO FUNEZ DO) Lab Values Laboratory Tests Test 03/16/19 00:10 03/16/19 00:52 Urine Collection Type Unknown Urine Color Yellow Urine Clarity Clear Urine pH 5.5 Urine Specific [place] >=1.030 Urine Protein Negative mg/dL (NEG-TRACE) Urine Glucose (UA) Negative mg/dL (NEG) Urine Ketones (Stick) Negative mg/dL (NEG) Urine Blood Negative (NEG) Urine Nitrite Negative (NEG) Urine Bilirubin Negative (NEG) Urine Urobilinogen Dipstick 0.2 mg/dL (0.2 mg/dL) Urine Leukocyte Esterase Negative (NEG) Urine RBC Occ /HPF (0-2) Urine WBC Occ /HPF (0-4) Urine Squamous Epithelial Cells Few /LPF Urine Bacteria Few /HPF (0-FEW) Urine Mucus Marked /LPF White Blood Count 9.9 x10^3/uL (4.0-11.0) Red Blood Count 4.74 x10^6/uL (4.30-5.70) Hemoglobin 15.6 g/dL (13.0-17.5) Hematocrit 44.8 % (39.0-53.0) Mean Corpuscular Volume 94 fL (79-100) Mean Corpuscular Hemoglobin 33 pg (25-35) Mean Corpuscular Hemoglobin Concent 35 g/dL (31-37) Red Cell Distribution Width 12.7 % (11.5-14.5) Platelet Count 311 x10^3/uL (140-400) Neutrophils (%) (Auto) 57 % (31-73) Lymphocytes (%) (Auto) 26 % (24-48) Monocytes (%) (Auto) 12 % (0-9) H Eosinophils (%) (Auto) 4 % (0-3) H Basophils (%) (Auto) 1 % (0-3) Neutrophils # (Auto) 5.7 x10^3/uL (1.8-7.7) Lymphocytes # (Auto) 2.6 x10^3/uL (1.0-4.8) Monocytes # (Auto) 1.1 x10^3/uL (0.0-1.1) Eosinophils # (Auto) 0.4 x10^3/uL (0.0-0.7) Basophils # (Auto) 0.1 x10^3/uL (0.0-0.2) Sodium Level 144 mmol/L (136-145) Potassium Level 4.0 mmol/L (3.5-5.1) Chloride Level 107 mmol/L (98-107) Carbon Dioxide Level 30 mmol/L (21-32) Anion Gap 7 (6-14) Blood Urea Nitrogen 16 mg/dL (8-26) Creatinine 1.2 mg/dL (0.7-1.3) Estimated GFR (Cockcroft-Gault) 65.5 BUN/Creatinine Ratio 13 (6-20) Glucose Level 93 mg/dL (70-99) Calcium Level 9.1 mg/dL (8.5-10.1) Total Bilirubin 0.2 mg/dL (0.2-1.0) Aspartate Amino Transferase (AST) 16 U/L (15-37) Alanine Aminotransferase (ALT) 44 U/L (16-63) Alkaline Phosphatase 65 U/L (46-116) Total Protein 7.4 g/dL (6.4-8.2) Albumin 3.5 g/dL (3.4-5.0) Albumin/Globulin Ratio 0.9 (1.0-1.7) L Lipase 99 U/L (73-393) Laboratory Tests 03/16/19 00:52 Laboratory Tests 03/16/19 00:52 (LOCO FUNEZ DO) Lab Values Laboratory Tests Test 03/16/19 00:52 White Blood Count 9.9 x10^3/uL (4.0-11.0) Red Blood Count 4.74 x10^6/uL (4.30-5.70) Hemoglobin 15.6 g/dL (13.0-17.5) Hematocrit 44.8 % (39.0-53.0) Mean Corpuscular Volume 94 fL (79-100) Mean Corpuscular Hemoglobin 33 pg (25-35) Mean Corpuscular Hemoglobin Concent 35 g/dL (31-37) Red Cell Distribution Width 12.7 % (11.5-14.5) Platelet Count 311 x10^3/uL (140-400) Neutrophils (%) (Auto) 57 % (31-73) Lymphocytes (%) (Auto) 26 % (24-48) Monocytes (%) (Auto) 12 % (0-9) H Eosinophils (%) (Auto) 4 % (0-3) H Basophils (%) (Auto) 1 % (0-3) Neutrophils # (Auto) 5.7 x10^3/uL (1.8-7.7) Lymphocytes # (Auto) 2.6 x10^3/uL (1.0-4.8) Monocytes # (Auto) 1.1 x10^3/uL (0.0-1.1) Eosinophils # (Auto) 0.4 x10^3/uL (0.0-0.7) Basophils # (Auto) 0.1 x10^3/uL (0.0-0.2) Sodium Level 144 mmol/L (136-145) Potassium Level 4.0 mmol/L (3.5-5.1) Chloride Level 107 mmol/L (98-107) Carbon Dioxide Level 30 mmol/L (21-32) Anion Gap 7 (6-14) Blood Urea Nitrogen 16 mg/dL (8-26) Creatinine 1.2 mg/dL (0.7-1.3) Estimated GFR (Cockcroft-Gault) 65.5 BUN/Creatinine Ratio 13 (6-20) Glucose Level 93 mg/dL (70-99) Calcium Level 9.1 mg/dL (8.5-10.1) Total Bilirubin 0.2 mg/dL (0.2-1.0) Aspartate Amino Transferase (AST) 16 U/L (15-37) Alanine Aminotransferase (ALT) 44 U/L (16-63) Alkaline Phosphatase 65 U/L (46-116) Total Protein 7.4 g/dL (6.4-8.2) Albumin 3.5 g/dL (3.4-5.0) Albumin/Globulin Ratio 0.9 (1.0-1.7) L Lipase 99 U/L (73-393) Laboratory Tests 03/16/19 00:52 Laboratory Tests 03/16/19 00:52 (LOCO WASHINGTON APRN) EKG EKG [] (LOCO W[place] APRN) Radiology/Procedures Radiology/Procedures [] (LOCO [place] APRN) Radiology/Procedures PROCEDURE: CT ABD PELV W/ IV CONTRST ONLY CT abdomen and pelvis with contrast PQRS statement: CT scans at this facility use dose reduction including either automated exposure control, iterative reconstructions, and /or weight based radiation dosing via mA and kV modification when appropriate to reduce radiation dose to as low as reasonably achievable. HISTORY: Right lower quadrant abdominal pain. TECHNIQUE: Helical CT imaging abdomen and pelvis acquired with 75 mL Optiray 300 intravenous contrast. Abdomen findings: Liver, gallbladder, pancreas, adrenal glands, spleen and kidneys are unremarkable. Appendix is negative. No obstruction or inflammation of the GI tract evident. No abdominal fluid or adenopathy. Lung bases and bones are unremarkable. Pelvis findings: Bladder, prostate, rectum and bones are unremarkable. 4 cm oblong fatty left inguinal hernia, no herniation of bowel. IMPRESSION: No acute process. The appendix is negative. Small fatty left inguinal hernia. Electronically signed by: Hector Oakley MD (03/16/2019 2:25 AM) [facility] (LOCO FUNEZ DO) Course & Med Decision Making Course & Med Decision Making Pertinent Labs and Imaging studies reviewed. (See chart for details) Will get labs, CT, and supportive care. Signed patient out to Dr. Funez at 0119. (LOCO W[place] APRN) Course & Med Decision Making Sign out received from [place] at 0120. Patient pending laboratory and CT imaging. Patient seen and evaluated by myself. Ketorolac IV provided. Labs reviewed and stable. CT abdomen/pelvis without acute process. Patient stable for discharge with outpatient follow-up with PCP/GI. GI referral provided. Discussed findings and plan with patient and family, who acknowledge understanding and agreement. Rx for [place] 5/325mg x 10 tabs given after [facility] reports with last prescription from 03/06/19 for 10 tabs of same. (LOCO FUNEZ DO) Dragon Disclaimer Dragon Disclaimer This electronic medical record was generated, in whole or in part, using a voice recognition dictation system. (LOCO W[place] APRN) Departure Departure Impression: Primary Impression: Abdominal pain Disposition: HOME, SELF-CARE Condition: STABLE Referrals: NO PCP (PCP) PROPECK,COLETTE S MD Patient Instructions: Abdominal Pain (Nonspecific) Scripts Hydrocodone/Apap 5-325 (NORCO 5-325 TABLET) 1 Each Tablet 0.5-1 TAB PO PRN Q6HRS PRN for PAIN, #10 TAB 0 Refills Prov: LOCO FUNEZ DO 03/16/19 Famotidine (PEPCID) 20 Mg Tablet 20 MG PO HS, #10 TAB Prov: LOCO FUNEZ DO 03/16/19 Attending Signature Attending Signature I have personally interviewed and examined the patient. All charts, labs, and imaging studies were reviewed. I agree with the PA/CURRICULUM MANAGER's findings, exam, and plan. (LOCO FUNEZ DO) Problem Qualifiers Primary Impression: Abdominal pain Abdominal location: right lower quadrant Qualified Codes: R10.31 - Right lower quadrant pain LOCO WASHINGTON APRN Mar 16, 2019 00:40 LOCO FUNEZ DO Mar 16, 2019 02:45
[2019-03-16] MEDS ORDERED: HYDROcodone/APAP 5/325MG 1 TAB TABLET PO ONE ×2 (00:45→03:00)
[2019-03-16] MEDS ORDERED: ONDANSETRON PF 4 MG/2 ML VIAL. IV ONE (01:00)
[2019-03-16] MEDS ORDERED: IV NORMAL SALINE 1000ML BAG 1,000 ML IV ONE (01:00)
[2019-03-16 01:02] LABS: BASO # 0.1 x10^3/uL (0.0-0.2); BASO % 1 % (0-3); EOS # 0.4 x10^3/uL (0.0-0.7); EOS % 4 % (0-3); HEMATOCRIT 44.8 % (39.0-53.0); HEMOGLOBIN 15.6 g/dL (13.0-17.5); LYMPH # 2.6 x10^3/uL (1.0-4.8); LYMPH % 26 % (24-48); MEAN CORPUSCULAR HEMOGLOBIN 33 pg (25-35); MEAN CORPUSCULAR HGB CONC 35 g/dL (31-37); MEAN CORPUSCULAR VOLUME 94 fL (79-100); MONO # 1.1 x10^3/uL (0.0-1.1); MONO % 12 % (0-9); NEUT # 5.7 x10^3/uL (1.8-7.7); NEUT % 57 % (31-73); PLATELET COUNT 311 x10^3/uL (140-400); RED BLOOD COUNT 4.74 x10^6/uL (4.30-5.70); RED CELL DISTRIBUTION WIDTH 12.7 % (11.5-14.5); WHITE BLOOD COUNT 9.9 x10^3/uL (4.0-11.0)
[2019-03-16 01:02] LABS: BILIRUBIN,URINE NEGATIVE (NEG); CLARITY,URINE CLEAR; COLOR,URINE YELLOW; NITRITE,URINE NEGATIVE (NEG); PH,URINE 5.5; PROTEIN,URINE NEGATIVE (NEG-TRACE); UROBILINOGEN,URINE 0.2 mg/dL (0.2 mg/dL)
[2019-03-16 01:09] LABS: CALCIUM 9.1 mg/dL (8.5-10.1); CREATININE 1.2 mg/dL (0.7-1.3); GFR 65.5
[2019-03-16 01:14] LABS: ALBUMIN 3.5 g/dL (3.4-5.0); ALBUMIN/GLOBULIN RATIO 0.9 (1.0-1.7); TOTAL BILIRUBIN 0.2 mg/dL (0.2-1.0); TOTAL PROTEIN 7.4 g/dL (6.4-8.2)
[2019-03-16 01:25] LABS: BACTERIA,URINE FEW /HPF (0-FEW); RBC,URINE OCC /HPF (0-2); SQUAMOUS EPITHELIAL CELL,UR FEW /LPF; WBC,URINE OCC /HPF (0-4)
[2019-03-16] MEDS ORDERED: CONTRAST GIVEN. MC PRN (01:30)
[2019-03-16] MEDS ORDERED: KETOROLAC 15 MG/ML VIAL. IV ONE (01:45)
[2019-03-16] MEDS ORDERED: IOHEXOL 300 MG/ML 100ML VIAL. IV ONE (02:00)
--- NOTE | 2019-03-16 02:29 | RAD ---
CT abdomen and pelvis with contrast PQRS statement: CT scans at this facility use dose reduction including either automated exposure control, iterative reconstructions, and /or weight based radiation dosing via mA and kV modification when appropriate to reduce radiation dose to as low as reasonably achievable. HISTORY: Right lower quadrant abdominal pain. TECHNIQUE: Helical CT imaging abdomen and pelvis acquired with 75 mL Optiray 300 intravenous contrast. Abdomen findings: Liver, gallbladder, pancreas, adrenal glands, spleen and kidneys are unremarkable. Appendix is negative. No obstruction or inflammation of the GI tract evident. No abdominal fluid or adenopathy. Lung bases and bones are unremarkable. Pelvis findings: Bladder, prostate, rectum and bones are unremarkable. 4 cm oblong fatty left inguinal hernia, no herniation of bowel. IMPRESSION: No acute process. The appendix is negative. Small fatty left inguinal hernia. Electronically signed by: Hector Oakley MD (03/16/2019 2:25 AM) [id number]
[2019-03-16] MEDS ORDERED: HYDR-3164 PO (02:43)
[2019-03-16] MEDS ORDERED: FAMO-63 PO (02:43)
[2019-03-16 02:49] VITALS: BP 133/86
== END 2019-03-16 02:58 | disposition home or self-care (01) ==
LOC: ER 00:09
DX: R10.31 Right lower quadrant pain (principal); R11.2 Nausea with vomiting, unspecified; G89.29 Other chronic pain; R63.0 Anorexia; Z88.5 Allergy status to narcotic agent
CPT/HCPCS: 36415; 74177; 80053; 81001; 83690; 85025; 96361; 96374; 96375; 99285; J1885; J2405; J7030; Q9967

== ENCOUNTER 2020-07-26 23:50 | Emergency (ER) | payer MEDICARE, OTHER ==
[~2020-07-26] VITALS: Ht 167.6 cm; Wt 127.0 kg
[~2020-07-26 23:50] MED LIST changes: -CLIN150C14 PO; +CLIN150C15 PO; +FAMO-63 PO; -LISI-334 PO; +LISI20TA18 PO
[2020-07-27 01:22] LABS: BILIRUBIN,URINE NEGATIVE (NEG); CLARITY,URINE CLEAR; COLOR,URINE YELLOW; NITRITE,URINE NEGATIVE (NEG); PROTEIN,URINE 30 mg/dL (NEG-TRACE); UROBILINOGEN,URINE 0.2 mg/dL (0.2 mg/dL)
[2020-07-27 01:28] LABS: BACTERIA,URINE 0 /HPF (0-FEW); WBC,URINE 0 /HPF (0-4)
[2020-07-27] MEDS ORDERED: MORPHINE SULFATE 4 MG/ML VIAL. IM ONE (01:30)
--- NOTE | 2020-07-27 01:46 | PHYS DOC ---
Past Medical History Past Medical History: Other Additional Past Medical Histor: neuropathy, chronic back pain, COLITIS, diarrhea, HERNIA Past Surgical History: Other Additional Past Surgical Histo: HERNIA REPAIR Smoking Status: Current Every Day Smoker Alcohol Use: None Drug Use: None Adult General Chief Complaint Chief Complaint: MULTIPLE COMPLAINTS [facility] HPI Patient is a 44-year-old male presenting the emergency department complaining of new onset abdominal pain. Patient notes that he has a history of asthma, umbil ical hernia. Primary complaint today is stating that he feels that his umbilical hernia is nonreducible. Patient states he had worsening pain throughout the day and over the last 2 hours that he cannot reproduce his hernia. Patient is separately complaining of a sensation of shortness of breath and feels that he needs a nebulizer treatment but denies using this at home denies any shortness of breath or chest pain. In addition the patient is also complaining of new onset of urinary frequency and dysuria. Denies any fever chills. Denies any nausea, vomiting, and diarrhea, obstipation or constipation. Review of Systems Review of Systems Constitutional: Denies fever or chills [] Eyes: Denies change in visual acuity, redness, or eye pain [] HENT: Denies nasal congestion or sore throat [] Respiratory: Denies cough or shortness of breath [] Cardiovascular: No additional information not addressed in HPI [] GI: Denies abdominal pain, nausea, vomiting, bloody stools or diarrhea [] : Denies dysuria or hematuria [] Musculoskeletal: Denies back pain or joint pain [] Integument: Denies rash or skin lesions [] Neurologic: Denies headache, focal weakness or sensory changes [] Endocrine: Denies polyuria or polydipsia [] All other systems were reviewed and found to be within normal limits, except as documented in this note. Current Medications Current Medications Current Medications Medications (Trade) Dose Ordered Sig/[place]alia Start Time Stop Time Status Last Admin Dose Admin Acetaminophen/ Hydrocodone Bitart (Lortab 5/325) 2 tab 1X ONCE 07/27/20 02:00 07/27/20 02:01 DC 07/27/20 01:46 2 TAB Morphine Sulfate (Morphine Sulfate) 4 mg 1X ONCE 07/27/20 01:30 07/27/20 01:31 DC Allergies Allergies Allergies Coded Allergies Type Severity Reaction Last Updated Verified tramadol Allergy Intermediate HIVES 06/14/16 Yes Physical Exam Physical Exam Constitutional: Well developed, well nourished, no acute distress, non-toxic appearance. [] HENT: Normocephalic, atraumatic, bilateral external ears normal, oropharynx moist, no oral exudates, nose normal. [] Eyes: PERRLA, EOMI, conjunctiva normal, no discharge. [] Neck: Normal range of motion, no tenderness, supple, no stridor. Cardiovascular:Heart rate regular rhythm, no murmur [] Lungs & Thorax: Bilateral breath sounds clear to auscultation [] Abdomen: Bowel sounds normal, soft, no tenderness, no masses, no pulsatile masses. Small supraumbilical hernia Skin: Warm, dry, no erythema, no rash. [] Back: No tenderness, no CVA tenderness. [] Extremities: No tenderness, no cyanosis, no clubbing, ROM intact, no edema. Neurologic: Alert and oriented X 3, normal motor function, normal sensory function, no focal deficits noted. [] Psychologic: Affect normal, judgement normal, mood normal. [] Current Patient Data Vital Signs Vital Signs Date Time Temp Pulse Resp B/P (MAP) Pulse Ox O2 Delivery O2 Flow Rate FiO2 07/27/20 01:46 20 96 07/27/20 00:01 98.1 100 168/86 (113) Room Air 98.1 Lab Values Laboratory Tests Test 07/27/20 00:02 Urine Collection Type Unknown Urine Color Yellow Urine Clarity Clear Urine pH 6.0 (<5.0-8.0) Urine Specific [place] 1.015 (1.000-1.030) Urine Protein 30 mg/dL (NEG-TRACE) Urine Glucose (UA) Negative mg/dL (NEG) Urine Ketones (Stick) Negative mg/dL (NEG) Urine Blood Negative (NEG) Urine Nitrite Negative (NEG) Urine Bilirubin Negative (NEG) Urine Urobilinogen Dipstick 0.2 mg/dL (0.2 mg/dL) Urine Leukocyte Esterase Negative (NEG) Urine RBC 1-2 /HPF (0-2) Urine WBC 0 /HPF (0-4) Urine Squamous Epithelial Cells None /LPF Urine Bacteria 0 /HPF (0-FEW) Urine Mucus Slight /LPF EKG EKG [] Radiology/Procedures Radiology/Procedures [] Course & Med Decision Making Course & Med Decision Making Pertinent Labs and Imaging studies reviewed. (See chart for details) 44-year-old male presenting with multiple complaints. At this time will provide the patient pain medication and ice pack and attempt to manually reduce the hernia. If this is unsuccessful we will obtain determine whether this is a true incarceration. In addition will obtain urinalysis to make sure there is no evidence of urinary tract infection. 0227 - UA negative. umbilical hernia reduced. Pt symptoms improved. Will discharge home. Dragon Disclaimer Dragon Disclaimer This electronic medical record was generated, in whole or in part, using a voice recognition dictation system. Departure Departure Impression: Primary Impression: Back pain Additional Impression: Umbilical hernia Disposition: 01 DC HOME SELF CARE/HOMELESS Condition: GOOD Referrals: COELTTE WATT MD Patient Instructions: Hernia Additional Instructions: EMERGENCY DEPARTMENT GENERAL DISCHARGE INSTRUCTIONS Thank you for coming to [facility] Emergency Department (ED) today and trusting us with you care. We trust that you had a positive experience in our Emergency Department. If you wish to speak to the department management, you may call the Director at [phone]. YOUR FOLLOW UP INSTRUCTIONS ARE FOLLOWS: 1. Do you have a private Doctor? If you do not have a private doctor, please ask for a resource list of physicians or clinics that may be able to assist you with follow up care. 2. The Emergency Physicain has interpreted your x-rays. The X-Ray specialist will also review them. If there is a change in the findings, you will be notified in 48 hours when at all possible. 3. A lab test or culture has been done, your results will be reviewed and you will be notified if you need a change in treatment. ADDITIONAL INSTRUCTIONS AND INFORMATION: 1. Your care today has been supervised by a physician who is specially trained in emergency care. Many problems require more than one evaluation for a complete diagnosis and treatment. We recommend that you schedule your follow up appointment as recommended to ensure complete treatment of you illness or injury. If you are unable to obtain follow up care and continue to have a problem, or if your condition worsens, we recommend that you return to the ED. 2. We are not able to safely determine your condition over the phone nor are we able to give sound medical advice over the phone. For these safety reasons, if you call for medical advice we will ask you to come to the ED for further evaluation. 3. If you have any questions regarding these discharge instructions please call the ED at [phone]. SAFETY INFORMATION: In the interest of safety, wellness, and injury prevention; we encourage you to wear your sealbelt, if you smoke; quite smoking, and we encourage family to use a protective helmet for bicycling and other sporting events that present an increased risk for head injury. IF YOUR SYMPTOMS WORSEN OR NEW SYMPTOMS DEVELOP, OR YOU HAVE CONCERNS ABOUT YOUR CONDITION; OR IF YOUR CONDITION WORSENS WHILE YOU ARE WAITING FOR YOUR FOLLOW UP APPOINTMENT; EITHER CONTACT YOUR PRIMARY CARE DOCTOR, THE PHYSICIAN WHOSE NAME AND NUMBER YOU WERE GIVEN, OR RETURN TO THE ED IMMEDIATELY. Scripts Albuterol Sulfate (ALBUTEROL SULFATE NEB SOLN) 2.5 Mg/3 Ml Vial.neb 1 VIAL NEB Q6HRS PRN for SHORTNESS OF BREATH, #25 VIAL Prov: VALERIANO SIMPSON MD 07/27/20 Problem Qualifiers VALERIANO SIMPSON MD Jul 27, 2020 01:45
[2020-07-27] MEDS ORDERED: HYDROcodone/APAP 5/325MG 1 TAB TABLET PO ONE (02:00)
[2020-07-27 02:30] VITALS: BP 163/72
[2020-07-27] MEDS ORDERED: ALBU2.5V5 NEB (02:33)
== END 2020-07-27 02:43 | disposition home or self-care (01) ==
LOC: ER 23:50
DX: K42.9 Umbilical hernia without obstruction or gangrene (principal); G89.29 Other chronic pain; F17.200 Nicotine dependence, unspecified, uncomplicated; Z98.890 Other specified postprocedural states; Z88.6 Allergy status to analgesic agent
CPT/HCPCS: 81001; 99283

== ENCOUNTER 2021-01-13 01:29 | Emergency (ER) | payer MEDICARE, OTHER ==
[~2021-01-13] VITALS: Ht 167.6 cm; Wt 129.6 kg
[~2021-01-13 01:29] MED LIST changes: +ALBU2.5V5 NEB
--- NOTE | 2021-01-13 01:45 | PHYS DOC ---
Past Medical History Past Medical History: Other Additional Past Medical Histor: neuropathy, chronic back pain, COLITIS, diarrhea, HERNIA Past Surgical History: Other Additional Past Surgical Histo: HERNIA REPAIR Smoking Status: Current Every Day Smoker Alcohol Use: None Drug Use: None General Adult EDM: Chief Complaint: CHEST PAIN HPI: HPI: 45 yo M PMH tobacco use and obesity, presents the ED with complaints of " my legs are swollen all the way up to her knees, it hurts bad" for the past 5 days. States he took his friend's water pill couple days ago, believes it was a combination medication with a blood pressure medication and 20 mg of Lasix. Was seen at [facility] urgent care clinic 3 weeks ago for the symptoms. Also reports chest pain is on the left side, nonradiating for the past day that has been intermittent, associated dyspnea. States symptoms do not resemble his typical asthma although is requesting a breathing treatment. No history of Covid vaccine stating " I do not want to be a zombie." No personal or family history of AAA, AAD, CTD (ehlos danlos or marfans), cardiac arrhythmias (need for AICD), CAD, sudden or unexplainable (under 50 years of age or with exertion), or clotting disorders. Review of Systems: Review of Systems: Constitutional: Denies fever or chills. [] Eyes: Denies change in visual acuity. [] HENT: Denies nasal congestion or sore throat. [] Respiratory: Denies cough or hemoptysis Cardiovascular: Denies syncope or palpitations GI: Denies abdominal pain, nausea, vomiting, Musculoskeletal: Denies new back pain or joint pain. [] Integument: Denies rash or diaphoresis Neurologic: Denies headache, focal weakness or sensory changes. [] Endocrine: Denies polyuria or polydipsia. [] Lymphatic: Denies swollen glands. [] Psychiatric: Denies depression or anxiety. [] Heart Score: C/O Chest Pain: Yes HEART Score for Chest Pain: HEART Score for Chest Pain Response (Comments) Value History Slighlty/Non-Suspicious 0 ECG Nonspecific Repolarizatio 1 Age >45 - < 65 1 Risk Factors 1 or 2 Risk Factors 1 Troponin < Normal Limit 0 Total 3 Risk Factors: Risk Factors: DM, Current or recent (<one month) smoker, HTN, HLP, family history of CAD, obesity. Risk Scores: Score 0 - 3: 2.5% MACE over next 6 weeks - Discharge Home Score 4 - 6: 20.3% MACE over next 6 weeks - Admit for Clinical Observation Score 7 - 10: 72.7% MACE over next 6 weeks - Early Invasive Strategies Allergies: Allergies: Allergies Coded Allergies Type Severity Reaction Last Updated Verified tramadol Allergy Intermediate HIVES 06/14/16 Yes Physical Exam: PE: Constitutional: Well developed, well nourished, no acute distress, non-toxic appearance, obese-carries weight in abdomen, sitting in chair HENT: Normocephalic, atraumatic, Eyes: EOMI, conjunctiva normal, no discharge. Neck: Normal range of motion, supple, Cardiovascular: S1/2 present, regular rhythm Lungs & Thorax: Speaking in full sentences, bilateral equal chest rise, no tachypnea or retractions Abdomen: soft, no tenderness, Skin: Warm, dry, no erythema, no rash. [] Back: No tenderness, no CVA tenderness. [] Extremities: No tenderness, no cyanosis, lower extremity edema-equal/bilaterally Neurologic: Alert and oriented X 3, no focal deficits noted. [] Psychologic: Affect normal, judgement normal, mood normal. [] EKG: EKG: Sinus rhythm 86 bpm, left axis deviation, normal intervals, T wave inversion in V5 and V6, questionable ST segment depression in lead III, no ST elevations or ST depressions Radiology/Procedures: Radiology/Procedures: [] Course & Med Decision Making: Course & Med Decision Making Pertinent Labs and Imaging studies reviewed. (See chart for details) Concern for lower extremity swelling in the setting of atypical chest pain and dyspnea. I recommended admission for serial troponins, cardiology consultation and consider echocardiogram for CHF evaluation. Patient refused stating "this has been going on for 3 weeks," also dislikes ed stretchers "I can't do this with my back." Later asks about receiving the covid vaccine. Unable to convincept to stay. Has no active chest pain. HD stable with uncontrolled hypertension. The patient has decided to leave our facility against medical advice. I have assessed patient's ability to make informed decision and feel the patient has the capacity to comprehend information regarding the current medical condition and appreciates the impact of the disease or condition and the consequences of various options for treatment, including foregoing treatment. The patient possesses the ability to evaluate all treatment options, comparing the risks and benefits of each option, communicate his or her choice in a consistent manner over time, and is able to make rational choices. I explained to the patient further testing, treatment, and evaluation I would like to perform in the emergency department visit as well as any possible alternatives that can be accomplished in a timely manner. I have outlined the possible risks of foregoing any or all of these interventions and the patient understands and acknowledges that the decision to leave may result in undesirable consequences such as , permanent disability, and/or loss of current lifestyle. Even though leaving AMA is not ideal, I have instructed the patient to follow any discharge instructions given, take any medications prescribed, and resume care as soon as possible with another provider. This conversation was witnessed by another member of the emergency department staff and we clearly communicated the patient is welcome to return anytime to continue care at our facility. Dragon Disclaimer: Dragon Disclaimer: This electronic medical record was generated, in whole or in part, using a voice recognition dictation system. Departure Departure Impression: Primary Impression: Chest pain at rest Additional Impressions: Leg swelling Asthma Disposition: LEFT AGAINST MEDICAL ADVICE Condition: STABLE Referrals: NO PCP (PCP) Follow-up with your primary care physician in 24 to 48 hours OR FOLLOW UP WITH FAMILY MEDICINE: [address] [facility] [address] [place] [address] Patient Instructions: Asthma, Adult, Chest Pain (Nonspecific), Discharge Against Medical Advice, Peripheral Edema Additional Instructions: FOLLOW UP WITH CARDIOLOGY: FOR DEFINITIVE MANAGEMENT for cardiac diseasee [facility] Cardiology [address] [facility] [address] [place] [address] EMERGENCY DEPARTMENT GENERAL DISCHARGE INSTRUCTIONS Thank you for coming to [facility] (ED) today and trusting us with you care. We trust that you had a positive experience in our Emergency Department. If you wish to speak to the department management, you may call the Director at [phone]. YOUR FOLLOW UP INSTRUCTIONS ARE FOLLOWS: 1. Do you have a private Doctor? If you do not have a private doctor, please ask for a resource list of physicians or clinics that may be able to assist you with follow up care. 2. The Emergency Physicain has interpreted your x-rays. The X-Ray specialist will also review them. If there is a change in the findings, you will be notified in 48 hours when at all possible. 3. A lab test or culture has been done, your results will be reviewed and you w ill be notified if you need a change in treatment. ADDITIONAL INSTRUCTIONS AND INFORMATION: 1. Your care today has been supervised by a physician who is specially trained in emergency care. Many problems require more than one evaluation for a complete diagnosis and treatment. We recommend that you schedule your follow up appointment as recommended to ensure complete treatment of you illness or injury. If you are unable to obtain follow up care and continue to have a problem, or if your condition worsens, we recommend that you return to the ED. 2. We are not able to safely determine your condition over the phone nor are we able to give sound medical advice over the phone. For these safety reasons, if you call for medical advice we will ask you to come to the ED for further evaluation. 3. If you have any questions regarding these discharge instructions please call the ED at [phone]. SAFETY INFORMATION: In the interest of safety, wellness, and injury prevention; we encourage you to wear your sealbelt, if you smoke; quite smoking, and we encourage family to use a protective helmet for bicycling and other sporting events that present an increased risk for head injury. IF YOUR SYMPTOMS WORSEN OR NEW SYMPTOMS DEVELOP, OR YOU HAVE CONCERNS ABOUT YOUR CONDITION; OR IF YOUR CONDITION WORSENS WHILE YOU ARE WAITING FOR YOUR FOLLOW UP APPOINTMENT; EITHER CONTACT YOUR PRIMARY CARE DOCTOR, THE PHYSICIAN WHOSE NAME AND NUMBER YOU WERE GIVEN, OR RETURN TO THE ED IMMEDIATELY. Scripts Albuterol Sulfate (VENTOLIN HFA INHALER) 18 Gm Hfa.aer.ad 2 PUFF INH QID for FOR ASTHMA, #1 INHALER 0 Refills Prov: BONNIEJAM COOPER Camilla DO 01/13/21 Methylprednisolone (MEDROL) 4 Mg Tab.ds.pk 1 PKG PO UD, #1 PKG Prov: JAM MIRZA Camilla DO 01/13/21 BONNIEJAM COOPER Camilla DO Jan 13, 2021 01:44
[2021-01-13 02:14] LABS: BASO # 0.1 x10^3/uL (0.0-0.2); BASO % 1 % (0-3); EOS # 0.4 x10^3/uL (0.0-0.7); EOS % 4 % (0-3); HEMATOCRIT 44.7 % (39.0-53.0); LYMPH % 21 % (24-48); MEAN CORPUSCULAR HEMOGLOBIN 32 pg (25-35); MEAN CORPUSCULAR HGB CONC 34 g/dL (31-37); MEAN CORPUSCULAR VOLUME 95 fL (79-100); MONO % 10 % (0-9); NEUT % 64 % (31-73); PLATELET COUNT 311 x10^3/uL (140-400); RED BLOOD COUNT 4.69 x10^6/uL (4.30-5.70); RED CELL DISTRIBUTION WIDTH 13.8 % (11.5-14.5); WHITE BLOOD COUNT 9.4 x10^3/uL (4.0-11.0)
[2021-01-13 02:37] LABS: CALCIUM 8.9 mg/dL (8.5-10.1); CREATININE 0.9 mg/dL (0.7-1.3); GFR 90.4; POTASSIUM 4.1 mmol/L (3.5-5.1)
[2021-01-13 02:43] LABS: ALBUMIN 3.3 g/dL (3.4-5.0); ALBUMIN/GLOBULIN RATIO 0.8 (1.0-1.7); TOTAL BILIRUBIN 0.2 mg/dL (0.2-1.0); TOTAL PROTEIN 7.2 g/dL (6.4-8.2)
[2021-01-13 03:09] VITALS: BP 168/105
[2021-01-13 03:24] LABS: AMPHETAMINE/METHAMPHETAMINE NEG (NEG); BARBITURATES NEG (NEG); BENZODIAZEPINES NEG (NEG); CANNABINOIDS NEG (NEG); COCAINE NEG (NEG); METHADONE NEG (NEG); OPIATES NEG (NEG); PHENCYCLIDINE NEG (NEG)
--- NOTE | 2021-01-13 03:44 | EKG ---
[facility] [address] [place] [address] Test Date: 2021-01-13 Test Time: 01:36:16 Pat Name: LUAN SHARP Department: Room: Gender: M Volunteer Patient Representative: : 1975 Requested By: JAM MIRZA Order Number: [id number] Reading MD: Measurements Intervals [place] Rate: 87 P: 40 OR: 148 QRS: 71 QRSD: 102 T: 29 QT: 348 QTc: 424 Interpretive Statements SINUS RHYTHM INCOMPLETE RIGHT BUNDLE BRANCH BLOCK NO SPECIFIC ECG ABNORMALITIES RI6.02 No previous ECG available for comparison
--- NOTE | 2021-01-13 03:45 | EKG ---
[facility] [address] [place] [address] Test Date: 2021-01-13 Test Time: 02:15:17 Pat Name: LUAN SHARP Department: Room: Gender: M International Student Advisor: : 1975 Requested By: JAM MIRZA Order Number: [id number] Reading MD: Measurements Intervals [place] Rate: 86 P: 36 VT: 136 QRS: 74 QRSD: 98 T: 39 QT: 352 QTc: 424 Interpretive Statements SINUS RHYTHM INCOMPLETE RIGHT BUNDLE BRANCH BLOCK OTHERWISE NORMAL ECG RI6.02 Compared to ECG 01/13/2021 01:36:16 No significant changes
[2021-01-13] MEDS ORDERED: IPRATRPIUM/ALBUTEROL 0.5/2.5MG 3 ML NEBU. NEB ONE (04:00)
[2021-01-13] MEDS ORDERED: VENTOLIN HFA18 GM INH (04:28)
[2021-01-13] MEDS ORDERED: METH4TAB2 PO (04:28)
[2021-01-13] MEDS ORDERED: DEXAMETHASONE SOD PHOS 20 MG/5 ML VIAL. IV ONE (04:30)
--- NOTE | 2021-01-13 08:17 | RAD ---
EXAM: XR CHEST 1V 01/13/2021 2:09 AM CLINICAL INDICATION: Chest pain COMPARISON: Chest radiograph 03/10/2017 TECHNIQUE: AP upright view of the chest FINDINGS: The heart and mediastinum are normal. Lungs are adequately expanded and clear. No consol idation, pleural effusion, or pneumothorax. Pulmonary vascularity is normal. No acute osseous abnorm ality. IMPRESSION: Normal chest radiograph. Electronically signed by: Lydia Moss MD (01/13/2021 8:15 AM) [id number]
== END 2021-01-13 04:30 | disposition left against medical advice (07) ==
LOC: ER 01:29
DX: R07.89 Other chest pain (principal); R22.43 Localized swelling, mass and lump, lower limb, bilateral; J45.909 Unspecified asthma, uncomplicated; G89.29 Other chronic pain; R19.7 Diarrhea, unspecified; Z72.0 Tobacco use; Z98.890 Other specified postprocedural states; Z88.6 Allergy status to analgesic agent
CPT/HCPCS: 36415; 71045; 80053; 80307; 83690; 83735; 83880; 84484; 85025; 93005; 99285-25

== ENCOUNTER 2021-04-11 16:56 | Inpatient (IN) | payer MEDICARE, OTHER ==
[~2021-04-11] VITALS: Ht 167.6 cm; Wt 142.2 kg
[~2021-04-11 16:56] MED LIST changes: -CLIN150C15 PO; +CLIN150C16 PO; +METH4TAB2 PO; +VENTOLIN HFA18 GM INH
[2021-04-11 17:35] LABS: BASO # 0.1 x10^3/uL (0.0-0.2); BASO % 1 % (0-3); EOS # 0.3 x10^3/uL (0.0-0.7); EOS % 2 % (0-3); HEMATOCRIT 44.8 % (39.0-53.0); HEMOGLOBIN 15.2 g/dL (13.0-17.5); LYMPH # 1.3 x10^3/uL (1.0-4.8); LYMPH % 11 % (24-48); MEAN CORPUSCULAR HEMOGLOBIN 32 pg (25-35); MEAN CORPUSCULAR HGB CONC 34 g/dL (31-37); MEAN CORPUSCULAR VOLUME 94 fL (79-100); MONO # 0.7 x10^3/uL (0.0-1.1); MONO % 6 % (0-9); NEUT # 9.4 x10^3/uL (1.8-7.7); NEUT % 80 % (31-73); PLATELET COUNT 306 x10^3/uL (140-400); RED BLOOD COUNT 4.77 x10^6/uL (4.30-5.70); RED CELL DISTRIBUTION WIDTH 13.8 % (11.5-14.5); WHITE BLOOD COUNT 11.8 x10^3/uL (4.0-11.0)
--- NOTE | 2021-04-11 17:46 | RAD ---
AP chest. HISTORY: Short of air AP view was taken of the chest. Patient's taken a poor inspiration. There is density along the right heart border probably a epicardial fat pad. There are no confluent infiltrates. There is slight blunt ing of the left costophrenic angle, small effusion is possible or pleural thickening. IMPRESSION: 1. Possible small left effusion or pleural thickening. 2. No confluent infiltrates. Electronically signed by: Irvin Osullivan MD (04/11/2021 5:43 PM) [facility]
[2021-04-11 17:49] LABS: CALCIUM 8.6 mg/dL (8.5-10.1); CREATININE 1.1 mg/dL (0.7-1.3); GFR 71.8; POTASSIUM 3.9 mmol/L (3.5-5.1)
[2021-04-11 17:55] LABS: ALBUMIN/GLOBULIN RATIO 0.7 (1.0-1.7); MAGNESIUM 1.9 mg/dL (1.8-2.4); TOTAL BILIRUBIN 0.2 mg/dL (0.2-1.0); TOTAL PROTEIN 7.6 g/dL (6.4-8.2)
[2021-04-11 18:02] LABS: INFLUENZA A PATIENT NEGATIVE (NEGATIVE); INFLUENZA B PATIENT NEGATIVE (NEGATIVE)
[2021-04-11] MEDS ORDERED: IBUPROFEN 200 MG TABLET. PO ONE (19:15)
--- NOTE | 2021-04-11 19:17 | PHYS DOC ---
Past Medical History Past Medical History: Other Additional Past Medical Histor: neuropathy, chronic back pain, COLITIS, diarrhea, HERNIA Past Surgical History: No Surgical History Additional Past Surgical Histo: HERNIA REPAIR Smoking Status: Current Every Day Smoker Alcohol Use: None Drug Use: None General Adult EDM: Chief Complaint: SHORTNESS OF BREATH HPI: HPI: Patient is a 45 year old male who presents to the ED today complaining of cough, shortness of breath, sore throat, symptoms began 12 days ago. He states today he started running a fever. He is unvaccinated against COVID-19. Denies any chest pain apart from when he is coughing Review of Systems: Review of Systems: Constitutional: Reports fever Eyes: Denies change in visual acuity. [] HENT: Reports sore throat. Denies nasal congestion Respiratory: Reports cough and shortness of breath. [] Cardiovascular: Denies chest pain or edema. [] GI: Denies abdominal pain, nausea, vomiting, bloody stools or diarrhea. [] : Denies dysuria. [] Musculoskeletal: Denies back pain or joint pain. [] Integument: Denies rash. [] Neurologic: Denies headache, focal weakness or sensory changes. [] Psychiatric: Denies depression or anxiety. [] Heart Score: C/O Chest Pain: N/A Risk Factors: Risk Factors: DM, Current or recent (<one month) smoker, HTN, HLP, family history of CAD, obesity. Risk Scores: Score 0 - 3: 2.5% MACE over next 6 weeks - Discharge Home Score 4 - 6: 20.3% MACE over next 6 weeks - Admit for Clinical Observation Score 7 - 10: 72.7% MACE over next 6 weeks - Early Invasive Strategies Current Medications: Current Medications Medications (Trade) Dose Ordered Sig/Idalia Start Time Stop Time Status Last Admin Dose Admin Ibuprofen (Motrin) 600 mg 1X ONCE 04/11/21 19:15 04/11/21 19:16 Allergies: Allergies: Allergies Coded Allergies Type Severity Reaction Last Updated Verified tramadol Allergy Intermediate HIVES 06/14/16 Yes Physical Exam: PE: Constitutional: Well developed, well nourished, no acute distress, non-toxic appearance. [] HENT: Normocephalic, atraumatic, bilateral external ears normal, oropharynx moist, no oral exudates, patient sounds congested nasally Eyes: PERRLA, EOMI, conjunctiva normal, no discharge. [] Neck: Normal range of motion, no tenderness, supple, no stridor. [] Cardiovascular:Heart rate regular rhythm, no murmur [] Lungs & Thorax: Bilateral breath sounds clear to auscultation [] Abdomen: Bowel sounds normal, soft, no tenderness, no masses, no pulsatile ma sses. [] Skin: Warm, dry, no erythema, no rash. [] Back: No tenderness, no CVA tenderness. [] Extremities: No tenderness, no cyanosis, no clubbing, ROM intact, no edema. [] Neurologic: Alert and oriented X 3, normal motor function, normal sensory function, no focal deficits noted. [] Psychologic: Affect normal, judgement normal, mood normal. [] Current Patient Data: Labs: Laboratory Tests Test 04/11/21 17:19 04/11/21 17:25 Influenza Type A Antigen Negative (NEGATIVE) Influenza Type B Antigen Negative (NEGATIVE) SARS-CoV-2 Antigen (Rapid) Negative (NEGATIVE) White Blood Count 11.8 x10^3/uL (4.0-11.0) H Red Blood Count 4.77 x10^6/uL (4.30-5.70) Hemoglobin 15.2 g/dL (13.0-17.5) Hematocrit 44.8 % (39.0-53.0) Mean Corpuscular Volume 94 fL (79-100) Mean Corpuscular Hemoglobin 32 pg (25-35) Mean Corpuscular Hemoglobin Concent 34 g/dL (31-37) Red Cell Distribution Width 13.8 % (11.5-14.5) Platelet Count 306 x10^3/uL (140-400) Neutrophils (%) (Auto) 80 % (31-73) H Lymphocytes (%) (Auto) 11 % (24-48) L Monocytes (%) (Auto) 6 % (0-9) Eosinophils (%) (Auto) 2 % (0-3) Basophils (%) (Auto) 1 % (0-3) Neutrophils # (Auto) 9.4 x10^3/uL (1.8-7.7) H Lymphocytes # (Auto) 1.3 x10^3/uL (1.0-4.8) Monocytes # (Auto) 0.7 x10^3/uL (0.0-1.1) Eosinophils # (Auto) 0.3 x10^3/uL (0.0-0.7) Basophils # (Auto) 0.1 x10^3/uL (0.0-0.2) Sodium Level 137 mmol/L (136-145) Potassium Level 3.9 mmol/L (3.5-5.1) Chloride Level 100 mmol/L (98-107) Carbon Dioxide Level 31 mmol/L (21-32) Anion Gap 6 (6-14) Blood Urea Nitrogen 10 mg/dL (8-26) Creatinine 1.1 mg/dL (0.7-1.3) Estimated GFR (Cockcroft-Gault) 71.8 BUN/Creatinine Ratio 9 (6-20) Glucose Level 277 mg/dL (70-99) H Lactic Acid Level 1.6 mmol/L (0.4-2.0) Calcium Level 8.6 mg/dL (8.5-10.1) Magnesium Level 1.9 mg/dL (1.8-2.4) Total Bilirubin 0.2 mg/dL (0.2-1.0) Aspartate Amino Transferase (AST) 21 U/L (15-37) Alanine Aminotransferase (ALT) 49 U/L (16-63) Alkaline Phosphatase 85 U/L (46-116) Troponin I Quantitative 0.019 ng/mL (0.000-0.055) VP-Elk-I-Type Natriuretic Peptide 115 pg/mL (0-124) Total Protein 7.6 g/dL (6.4-8.2) Albumin 3.0 g/dL (3.4-5.0) L Albumin/Globulin Ratio 0.7 (1.0-1.7) L Procalcitonin < 0.10 ng/mL (0.00-0.10) Laboratory Tests 04/11/21 17:25 Laboratory Tests 04/11/21 17:25 Vital Signs: Vital Signs Date Time Temp Pulse Resp B/P (MAP) Pulse Ox O2 Delivery O2 Flow Rate FiO2 04/11/21 17:06 101.9 38 198/94 (128) 90 Room Air 101.9 EKG: EK interpreted by Dr. Ceballos sinus tachycardia heart rate 108 no STEMI [] Radiology/Procedures: Radiology/Procedures: []REASON: sOA PROCEDURE: PORTABLE CHEST 1V AP chest. HISTORY: Short of air AP view was taken of the chest. Patient's taken a poor inspiration. There is density along the right heart border probably a epicardial fat pad. There are no confluent infiltrates. There is slight blunting of the left costophrenic angle, small effusion is possible or pleural thickening. IMPRESSION: 1. Possible small left effusion or pleural thickening. 2. No confluent infiltrates. Electronically signed by: Irvin Osullivan MD (04/11/2021 5:43 PM) [facility] DICTATED and SIGNED BY: IRVIN OSULLIVAN MD DATE: 04/11/21 [id number] 0 Course & Med Decision Making: Course & Med Decision Making Pertinent Labs and Imaging studies reviewed. (See chart for details) This a 45-year-old male patient presented to the ED today with cough shortness of breath sore throat, symptoms began 12 days ago. Running a fever today. Temperature in the ED 101.9, O2 sats 90% on room air, respiration 38, blood pressure 198/94, heart rate 87. Chest x-ray negative for pneumonia CBC with a WBC of 11.8, CMP with glucose of 277, anion gap is normal. Negative rapid Covid test, negative rapid influenza A and B test Patient could not be discharged to home because he has been dependent on oxygen in the ED. Spoke to Dr. Bergman who accepted patient for admission Prerna Disclaimer: Prerna Disclaimer: This electronic medical record was generated, in whole or in part, using a voice recognition dictation system. Departure Departure Impression: Primary Impression: Acute respiratory failure with hypoxia Additional Impressions: Person under investigation for COVID-19 Fever Qualified Codes: R50.9 - Fever, unspecified Sorethroat Disposition: ADMITTED INPATIENT Condition: STABLE Referrals: NO PCP (PCP) ANIKET RYDER SENIOR STAFF [employer]MENT Apr 11, 2021 19:17
[2021-04-11] MEDS ORDERED: NICOTINE 21MG PATCH. TD PRN (20:15)
[2021-04-11] MEDS ORDERED: ALBUTEROL SULFATE 8GM INHALER. INH PRN ×2 (20:15)
[2021-04-11] MEDS ORDERED: guaiFENesin/CODEINE 100mg/10mg 5 ML LIQUID PO PRN ×2 (20:15→20:45)
[2021-04-11] MEDS ORDERED: IV NORMAL SALINE 1000ML BAG 1,000 ML IV ONE (20:15)
--- NOTE | 2021-04-11 20:19 | PDOC1 ---
History and Physical Date of Admission Date of Admission DATE: 04/11/21 TIME: 19:59 Identification/Chief Complaint Chief Complaint Shortness of breath Source Source: Patient History of Present Illness History of Present Illness Patient is a 45-year-old male with past medical history HTN, morbid obesity, who presents to the ED with complaints of fever and shortness of breath over the past 2 days. He reports generally feeling unwell for the past 12 days. Associated productive cough, sore throat, sneezing, and chest congestion. States his fever at home has been subjective, however upon arrival to the ER he was 101.9 F. He denies any associated nausea, vomiting, or diarrhea. Labs on admission showed WBC 11.8, CBG 277, albumin 3.0, procalcitonin <0.10, troponin 0.019, lactic acid 1.6. Chest x-ray showed possible small left effusion or pleural thickening, but no confluent infiltrates. Rapid COVID-19 was negative in the ED. in the ED he did become hypoxic on room air, and was placed on 4 L nasal cannula with improvement. Will admit patient for further medical management. Past Medical History Past Medical History HTN, HLD, morbid obesity, abdominal hernia Past Surgical History Past Surgical History Denies any surgical history Family History Family History: Coronary Artery Disease Social History Smoke: 2 packs per day ALCOHOL: none Drugs: Crystal meth Current Medications Current Medications Current Medications Ibuprofen (Motrin) 600 mg 1X ONCE PO Last administered on 04/11/21at 19:27; Start 04/11/21 at 19:15; Stop 04/11/21 at 19:16; Status DC Active Scripts Active Ventolin Hfa Inhaler (Albuterol Sulfate) 18 Gm Hfa.aer.ad 2 Puff INH QID Medrol (Methylprednisolone) 4 Mg Tab.ds.pk 1 Pkg PO UD Albuterol Sulfate Neb Soln (Albuterol Sulfate) 2.5 Mg/3 Ml Vial.neb 1 Vial NEB Q6HRS PRN [place] 5-325 Tablet (Acetaminophen/Hydrocodone Bitart) 1 Each Tablet 0.5-1 Tab PO PRN Q6HRS PRN Pepcid (Famotidine) 20 Mg Tablet 20 Mg PO HS [place] 5-325 Tablet (Acetaminophen/Hydrocodone Bitart) 1 Each Tablet 0.5-1 Tab PO PRN Q6HRS PRN [place] 5-325 Tablet (Acetaminophen/Hydrocodone Bitart) 1 Each Tablet 1-2 Each PO PRN Q6HRS PRN as needed for pain Bactrim Ds Tablet (Sulfamethoxazole/Trimethoprim) 1 Each Tablet 1 Tab PO BID [place] 5-325 Tablet (Acetaminophen/Hydrocodone Bitart) 1 Each Tablet 1 Tab PO TID Zithromax (Azithromycin) 250 Mg Tablet 1 Pkg PO UD [place] 5-325 Tablet (Acetaminophen/Hydrocodone Bitart) 1 Each Tablet 1 Tab PO PRN Q6HRS PRN Proair Hfa Inhaler (Albuterol Sulfate) 8.5 Gm Hfa.aer.ad 1 Puff INH Q4HRS PRN Naprosyn (Naproxen) 500 Mg Tablet 1 Tab PO BID Lomotil Tablet (Diphenoxylate Hcl/Atropine) 1 Each Tablet 1 Tab PO TID Dicyclomine Hcl 20 Mg Tablet 1 Tab PO TID [place] 5-325 Tablet (Acetaminophen/Hydrocodone Bitart) 1 Each Tablet 1-2 Tab PO Q4-6HRS Diclofenac Sodium 75 Mg Tablet.dr 1 Tab PO BID Ivermectin 3 Mg Tablet 3 Mg PO 1X 2 Days take one dose today, and the next dose in two weeks Benadryl (Diphenhydramine Hcl) 25 Mg Capsule 1 Cap PO Q6-8HRS PRN Naproxen 500 Mg Tablet 1 Tab PO BID PRN Elimite (Permethrin) 60 Gm Cream..g. 60 Gm TP 1X [place] 5-325 Tablet (Acetaminophen/Hydrocodone Bitart) 1 Each Tablet 1 Tab PO PRN Q6HRS PRN [place] 5-325 Tablet (Acetaminophen/Hydrocodone Bitart) 1 Each Tablet 1 Tab PO PRN Q6HRS PRN Anaprox Ds (Naproxen Sodium) 550 Mg Tablet 550 Mg PO Q12HR [place] 5-325 Tablet (Acetaminophen/Hydrocodone Bitart) 1 Each Tablet 1 Tab PO PRN Q6HRS PRN Prednisone 50 Mg Tablet 1 Tab PO DAILY Hydrocodone-Apap 5-325 (Hydrocodone Bit/Acetaminophen) 1 Each Tablet 1 Tab PO PRN Q6HRS PRN Nystatin 15 Gm Powder 1 Med TP BID Use on perianal region for fungal rash. Zofran (Ondansetron Hcl) 4 Mg Tablet 1 Tab PO PRN Q6-8HRS Percocet 5-325 Mg Tablet (Oxycodone/Acetaminophen) 1 Each Tablet 1-2 Tab PO Q4-6HRS PRN Levaquin (Levofloxacin) 750 Mg Tablet 1 Tab PO DAILY First dose given in the emergency department. Metronidazole 500 Mg Tablet 1 Tab PO TID Clindamycin Hcl 150 Mg Capsule 2 Cap PO QID 10 Days [place] 5-325 Tablet (Acetaminophen/Hydrocodone Bitart) 1 Each Tablet 1 Tab PO PRN Q6HRS PRN Proair Hfa Inhaler (Albuterol Sulfate) 8.5 Gm Hfa.aer.ad 1 Puff INH PRN Q6HRS PRN Reported Venlafaxine Hcl 37.5 Mg Tablet 37.5 Mg PO BID Amitriptyline Hcl 50 Mg Tablet 50 Mg PO DAILY Hydrochlorothiazide Tablet (Hydrochlorothiazide) 12.5 Mg Tablet 25 Mg PO DAILY Buspirone Hcl 30 Mg Tablet 30 Mg PO BID Lisinopril 20 Mg Tablet 20 Mg PO DAILY Metoprolol Tartrate 50 Mg Tablet 50 Mg PO BID Allergies Allergies: Coded Allergies: tramadol (Verified Allergy, Intermediate, HIVES, 06/14/16) ROS Review of System GENERAL: Fever. No history of weight change or weakness. SKIN: No bruising, hair changes or rashes. EYES: No blurred, double or loss of vision. NOSE AND THROAT: Sore throat, congestion. No history of nosebleeds or hoarseness. HEART: Denies chest pain, denies palpitations. LUNGS: Productive cough, shortness of breath, wheezing. Denies hemoptysis. GASTROINTESTINAL: Denies nausea, vomiting, abdominal pain. GENITOURINARY: Denies dysuria, frequency, urgency, hematuria. NEUROLOGIC: Denies history of numbness, tingling, tremor or weakness. PSYCHIATRIC: Denies anxiety, denies depression. ENDOCRINE: No history of heat or cold intolerance, polyuria or polydipsia. EXTREMITIES: Denies muscle weakness, joint pain, pain on walking or stiffness. Physical Exam Physical Exam General: Alert, Oriented X3, Cooperative, mild distress. Morbidly obese. HEENT: PERRLA, EOMI Lungs: Decreased breath sounds bilaterally, Normal air movement Heart: Tachycardic, no murmurs Cardiovascular: S1, S2 Abdomen: Normal bowel sounds, Soft, No tenderness, obese abdomen Extremities: No clubbing, No cyanosis Skin: No rashes, No significant lesion Neuro: Normal speech, Normal tone, Sensation intact Psych/Mental Status: Mental status NL, Mood NL Vitals Vitals Vital Signs Date Time Temp Pulse Resp B/P (MAP) Pulse Ox O2 Delivery O2 Flow Rate FiO2 04/11/21 19:15 108 28 171/95 (120) 96 Nasal Cannula 4.0 04/11/21 17:06 101.9 101.9 Labs Labs Laboratory Tests Test 04/11/21 17:19 04/11/21 17:25 Influenza Type A Antigen Negative (NEGATIVE) Influenza Type B Antigen Negative (NEGATIVE) SARS-CoV-2 Antigen (Rapid) Negative (NEGATIVE) White Blood Count 11.8 x10^3/uL (4.0-11.0) Red Blood Count 4.77 x10^6/uL (4.30-5.70) Hemoglobin 15.2 g/dL (13.0-17.5) Hematocrit 44.8 % (39.0-53.0) Mean Corpuscular Volume 94 fL (79-100) Mean Corpuscular Hemoglobin 32 pg (25-35) Mean Corpuscular Hemoglobin Concent 34 g/dL (31-37) Red Cell Distribution Width 13.8 % (11.5-14.5) Platelet Count 306 x10^3/uL (140-400) Neutrophils (%) (Auto) 80 % (31-73) Lymphocytes (%) (Auto) 11 % (24-48) Monocytes (%) (Auto) 6 % (0-9) Eosinophils (%) (Auto) 2 % (0-3) Basophils (%) (Auto) 1 % (0-3) Neutrophils # (Auto) 9.4 x10^3/uL (1.8-7.7) Lymphocytes # (Auto) 1.3 x10^3/uL (1.0-4.8) Monocytes # (Auto) 0.7 x10^3/uL (0.0-1.1) Eosinophils # (Auto) 0.3 x10^3/uL (0.0-0.7) Basophils # (Auto) 0.1 x10^3/uL (0.0-0.2) Sodium Level 137 mmol/L (136-145) Potassium Level 3.9 mmol/L (3.5-5.1) Chloride Level 100 mmol/L (98-107) Carbon Dioxide Level 31 mmol/L (21-32) Anion Gap 6 (6-14) Blood Urea Nitrogen 10 mg/dL (8-26) Creatinine 1.1 mg/dL (0.7-1.3) Estimated GFR (Cockcroft-Gault) 71.8 BUN/Creatinine Ratio 9 (6-20) Glucose Level 277 mg/dL (70-99) Lactic Acid Level 1.6 mmol/L (0.4-2.0) Calcium Level 8.6 mg/dL (8.5-10.1) Magnesium Level 1.9 mg/dL (1.8-2.4) Total Bilirubin 0.2 mg/dL (0.2-1.0) Aspartate Amino Transf (AST/SGOT) 21 U/L (15-37) Alanine Aminotransferase (ALT/SGPT) 49 U/L (16-63) Alkaline Phosphatase 85 U/L (46-116) Troponin I Quantitative 0.019 ng/mL (0.000-0.055) FW-Ush-W-Type Natriuretic Peptide 115 pg/mL (0-124) Total Protein 7.6 g/dL (6.4-8.2) Albumin 3.0 g/dL (3.4-5.0) Albumin/Globulin Ratio 0.7 (1.0-1.7) Procalcitonin < 0.10 ng/mL (0.00-0.10) Laboratory Tests Test 04/11/21 17:19 04/11/21 17:25 Influenza Type A Antigen Negative (NEGATIVE) Influenza Type B Antigen Negative (NEGATIVE) SARS-CoV-2 Antigen (Rapid) Negative (NEGATIVE) White Blood Count 11.8 x10^3/uL (4.0-11.0) Red Blood Count 4.77 x10^6/uL (4.30-5.70) Hemoglobin 15.2 g/dL (13.0-17.5) Hematocrit 44.8 % (39.0-53.0) Mean Corpuscular Volume 94 fL (79-100) Mean Corpuscular Hemoglobin 32 pg (25-35) Mean Corpuscular Hemoglobin Concent 34 g/dL (31-37) Red Cell Distribution Width 13.8 % (11.5-14.5) Platelet Count 306 x10^3/uL (140-400) Neutrophils (%) (Auto) 80 % (31-73) Lymphocytes (%) (Auto) 11 % (24-48) Monocytes (%) (Auto) 6 % (0-9) Eosinophils (%) (Auto) 2 % (0-3) Basophils (%) (Auto) 1 % (0-3) Neutrophils # (Auto) 9.4 x10^3/uL (1.8-7.7) Lymphocytes # (Auto) 1.3 x10^3/uL (1.0-4.8) Monocytes # (Auto) 0.7 x10^3/uL (0.0-1.1) Eosinophils # (Auto) 0.3 x10^3/uL (0.0-0.7) Basophils # (Auto) 0.1 x10^3/uL (0.0-0.2) Sodium Level 137 mmol/L (136-145) Potassium Level 3.9 mmol/L (3.5-5.1) Chloride Level 100 mmol/L (98-107) Carbon Dioxide Level 31 mmol/L (21-32) Anion Gap 6 (6-14) Blood Urea Nitrogen 10 mg/dL (8-26) Creatinine 1.1 mg/dL (0.7-1.3) Estimated GFR (Cockcroft-Gault) 71.8 BUN/Creatinine Ratio 9 (6-20) Glucose Level 277 mg/dL (70-99) Lactic Acid Level 1.6 mmol/L (0.4-2.0) Calcium Level 8.6 mg/dL (8.5-10.1) Magnesium Level 1.9 mg/dL (1.8-2.4) Total Bilirubin 0.2 mg/dL (0.2-1.0) Aspartate Amino Transf (AST/SGOT) 21 U/L (15-37) Alanine Aminotransferase (ALT/SGPT) 49 U/L (16-63) Alkaline Phosphatase 85 U/L (46-116) Troponin I Quantitative 0.019 ng/mL (0.000-0.055) AE-Nfm-[id number]-Type Natriuretic Peptide 115 pg/mL (0-124) Total Protein 7.6 g/dL (6.4-8.2) Albumin 3.0 g/dL (3.4-5.0) Albumin/Globulin Ratio 0.7 (1.0-1.7) Procalcitonin < 0.10 ng/mL (0.00-0.10) Images Images IMAGING REPORT Signed PATIENT: LUAN SHARP ACCOUNT: [id number] : 1975 LOCATION: ER AGE: 45 SEX: M EXAM STATUS: PRE ER ORD. PHYSICIAN: ANIKET RYDER APRN REASON: sOA PROCEDURE: PORTABLE CHEST 1V AP chest. HISTORY: Short of air AP view was taken of the chest. Patient's taken a poor inspiration. There is density along the right heart border probably a epicardial fat pad. There are no confluent infiltrates. There is slight blunting of the left costophrenic angle, small effusion is possible or pleural thickening. IMPRESSION: 1. Possible small left effusion or pleural thickening. 2. No confluent infiltrates. VTE Prophylaxis Ordered VTE Prophylaxis Devices: No VTE Pharmacological Prophylaxi: Yes Assessment/Plan Assessment/Plan Acute respiratory with hypoxia COPD exacerbation? COVID-19 PUI HTN Tobacco abuse Plan: Denies any formal history of COPD, but given extensive smoking history we will treat accordingly. Prednisone 40 mg daily Doxycycline 100 mg twice daily If COVID-19 returns negative, will provide duo nebulizers as needed. Albuterol inhaler as needed Will obtain 6-minute walk if COVID-19 negative and anticipate discharge home with self-care Resume home medications FEN - Cardiac diet PPX - Lovenox FULL CODE Dispo - inpatient for above Patient names his mother (Beckie Sharp) as surrogate decision-maker Justifications for Admission Other Justification JAQUI PORTER MD Apr 11, 2021 20:18
[2021-04-11] MEDS ORDERED: predniSONE 20 MG TABLET PO ONE (20:30)
[2021-04-11 20:45] VITALS: BP 147/77
[2021-04-11] MEDS ORDERED: ACETAMINOPHEN 325 MG TABLET. PO PRN (20:45)
[2021-04-11] MEDS ORDERED: ONDANSETRON PF 4 MG/2 ML VIAL. IVP PRN ×2 (20:45)
[2021-04-11] MEDS ORDERED: hydrALAZINE 20 MG/ML VIAL. IVP PRN (20:45)
[2021-04-11] MEDS ORDERED: MAGNESIUM HYDROXIDE 2,400 MG/30 ML ORAL.SUSP. PO PRN (20:45)
[2021-04-11] MEDS: guaiFENesin DM 600/30MG 1 TAB TAB.ER.12H PO SCH (21:00)
[2021-04-11] MEDS: DOXYCYCLINE HYCLATE 100 MG in IV DEXTROSE 5% 100ML 100 ML IV SCH (22:22)
[2021-04-11] MEDS: NICOTINE 14MG PATCH. TD PRN (22:23)
[2021-04-11] MEDS: ENOXAPARIN 40 MG/0.4 ML SYRINGE. SQ SCH (22:23)
[2021-04-11] MEDS: FAMOTIDINE 20 MG TABLET. PO SCH (22:24)
[2021-04-11 23:28] VITALS: BP 136/79
[2021-04-11] MEDS: ACETAMINOPHEN 325 MG TABLET. PO PRN (23:39)
--- NOTE | 2021-04-11 23:52 | EKG ---
[facility] [address] [place] [address] Test Date: 2021-04-11 Test Time: 17:16:50 Pat Name: LUAN SHARP Department: Room: [facility] Gender: M Clinic Md Associate: : 1975 Requested By: ANIKET RYDER Order Number: [id number] Reading MD: Aleksandr Ku Measurements Intervals [place] Rate: 108 P: 52 AL: 126 QRS: 71 QRSD: 96 T: -29 QT: 320 QTc: 432 Interpretive Statements SINUS TACHYCARDIA LEFT ATRIAL ABNORMALITY INCOMPLETE RIGHT BUNDLE BRANCH BLOCK Electronically Signed On 04-12-2021 16:00:11 CDT by Aleksandr Ku
[2021-04-12 02:29] LABS: BILIRUBIN,URINE NEGATIVE (NEG); CLARITY,URINE CLEAR; COLOR,URINE YELLOW; NITRITE,URINE NEGATIVE (NEG); PROTEIN,URINE NEGATIVE (NEG-TRACE); UROBILINOGEN,URINE 0.2 mg/dL (0.2 mg/dL)
[2021-04-12 02:43] LABS: BACTERIA,URINE 0 /HPF (0-FEW); HYALINE CASTS, URINE OCCASIONAL /HPF; RBC,URINE 0 /HPF (0-2); WBC,URINE 0 /HPF (0-4)
[2021-04-12 03:28] VITALS: BP 154/94
[2021-04-12] MEDS: HYDROcodone/APAP 5/325MG 1 TAB TABLET PO PRN ×4 (05:06→23:25)
[2021-04-12 07:00] VITALS: BP 163/85
[2021-04-12] MEDS: guaiFENesin DM 600/30MG 1 TAB TAB.ER.12H PO SCH ×2 (07:51→21:48)
[2021-04-12] MEDS: LISINOPRIL 20 MG TABLET PO SCH (07:52)
[2021-04-12] MEDS: ENOXAPARIN 40 MG/0.4 ML SYRINGE. SQ SCH (07:52)
[2021-04-12] MEDS: predniSONE 20 MG TABLET PO SCH (07:52)
[2021-04-12] MEDS: NICOTINE 14MG PATCH. TD PRN (07:53)
[2021-04-12] MEDS: ACETAMINOPHEN 325 MG TABLET. PO PRN ×3 (07:53→21:47)
--- NOTE | 2021-04-12 08:43 | PDOC ---
[employer] PROGRESS NOTE Date of Service DOS: DATE: 04/12/21 TIME: 08:41 Chief Complaint Chief Complaint Acute respiratory with hypoxia COPD exacerbation? COVID-19 PUI HTN Tobacco abuse HENLEY Community aquired pneumonia -likely gram-negative given recent dental procedure and smoker. Sinusitis Plan: Denies any formal history of COPD, but given extensive smoking history we will treat accordingly. Prednisone 40 mg daily Doxycycline 100 mg twice daily If COVID-19 returns negative, will provide duo nebulizers as needed. Albuterol inhaler as needed Will obtain 6-minute walk if COVID-19 negative and anticipate discharge home with self-care Resume home medications FEN - Cardiac diet PPX - Lovenox FULL CODE Dispo - inpatient for above Patient names his mother (Beckie Carrasco) as surrogate decision-maker History of Present Illness History of Present Illness Patient is a 45-year-old male with past medical history HTN, morbid obesity, who presents to the ED with complaints of fever and shortness of breath over the past 2 days. He reports generally feeling unwell for the past 12 days. Associated productive cough, sore throat, sneezing, and chest congestion. St ates his fever at home has been subjective, however upon arrival to the ER he was 101.9 F. He denies any associated nausea, vomiting, or diarrhea. Labs on admission showed WBC 11.8, CBG 277, albumin 3.0, procalcitonin <0.10, troponin 0.019, lactic acid 1.6. Chest x-ray showed possible small left effusion or pleural thickening, but no confluent infiltrates. Rapid COVID-19 was negative in the ED. in the ED he did become hypoxic on room air, and was placed on 4 L nasal cannula with improvement. Admitted patient for further medical management. Afebrile overnight. O2 saturations 93% on 4 L/min nasal cannula. Is complai cyndy of 10-10 headache today as well as sore throat. He says he said a sore throat since dental extraction over a month ago. Complaining of sinus congestion and brownish sputum production. Covid PCR pending Vitals/I&O Vitals/I&O: Vital Signs Date Time Temp Pulse Resp B/P (MAP) Pulse Ox O2 Delivery O2 Flow Rate FiO2 04/12/21 07:52 91 154/94 04/12/21 07:00 98.3 22 93 Nasal Cannula 4.0 98.3 I & O 04/11/21 04/11/21 04/12/21 15:00 23:00 07:00 Intake Total 962.71 ml Output Total 300 ml Balance 662.71 ml Physical Exam General: Alert, Oriented X3, Cooperative Labs Labs: Laboratory Tests Test 04/11/21 17:19 04/11/21 17:25 04/12/21 01:43 Influenza Type A Antigen Negative (NEGATIVE) Influenza Type B Antigen Negative (NEGATIVE) SARS-CoV-2 Antigen (Rapid) Negative (NEGATIVE) White Blood Count 11.8 x10^3/uL (4.0-11.0) Red Blood Count 4.77 x10^6/uL (4.30-5.70) Hemoglobin 15.2 g/dL (13.0-17.5) Hematocrit 44.8 % (39.0-53.0) Mean Corpuscular Volume 94 fL (79-100) Mean Corpuscular Hemoglobin 32 pg (25-35) Mean Corpuscular Hemoglobin Concent 34 g/dL (31-37) Red Cell Distribution Width 13.8 % (11.5-14.5) Platelet Count 306 x10^3/uL (140-400) Neutrophils (%) (Auto) 80 % (31-73) Lymphocytes (%) (Auto) 11 % (24-48) Monocytes (%) (Auto) 6 % (0-9) Eosinophils (%) (Auto) 2 % (0-3) Basophils (%) (Auto) 1 % (0-3) Neutrophils # (Auto) 9.4 x10^3/uL (1.8-7.7) Lymphocytes # (Auto) 1.3 x10^3/uL (1.0-4.8) Monocytes # (Auto) 0.7 x10^3/uL (0.0-1.1) Eosinophils # (Auto) 0.3 x10^3/uL (0.0-0.7) Basophils # (Auto) 0.1 x10^3/uL (0.0-0.2) Sodium Level 137 mmol/L (136-145) Potassium Level 3.9 mmol/L (3.5-5.1) Chloride Level 100 mmol/L (98-107) Carbon Dioxide Level 31 mmol/L (21-32) Anion Gap 6 (6-14) Blood Urea Nitrogen 10 mg/dL (8-26) Creatinine 1.1 mg/dL (0.7-1.3) Estimated GFR (Cockcroft-Gault) 71.8 BUN/Creatinine Ratio 9 (6-20) Glucose Level 277 mg/dL (70-99) Lactic Acid Level 1.6 mmol/L (0.4-2.0) Calcium Level 8.6 mg/dL (8.5-10.1) Magnesium Level 1.9 mg/dL (1.8-2.4) Total Bilirubin 0.2 mg/dL (0.2-1.0) Aspartate Amino Transf (AST/SGOT) 21 U/L (15-37) Alanine Aminotransferase (ALT/SGPT) 49 U/L (16-63) Alkaline Phosphatase 85 U/L (46-116) Troponin I Quantitative 0.019 ng/mL (0.000-0.055) HZ-Ztx-X-Type Natriuretic Peptide 115 pg/mL (0-124) Total Protein 7.6 g/dL (6.4-8.2) Albumin 3.0 g/dL (3.4-5.0) Albumin/Globulin Ratio 0.7 (1.0-1.7) Procalcitonin < 0.10 ng/mL (0.00-0.10) Urine Collection Type Unknown Urine Color Yellow Urine Clarity Clear Urine pH 6.0 (<5.0-8.0) Urine Specific [place] 1.015 (1.000-1.030) Urine Protein Negative mg/dL (NEG-TRACE) Urine Glucose (UA) Negative mg/dL (NEG) Urine Ketones (Stick) Negative mg/dL (NEG) Urine Blood Negative (NEG) Urine Nitrite Negative (NEG) Urine Bilirubin Negative (NEG) Urine Urobilinogen Dipstick 0.2 mg/dL (0.2 mg/dL) Urine Leukocyte Esterase Negative (NEG) Urine RBC 0 /HPF (0-2) Urine WBC 0 /HPF (0-4) Urine Squamous Epithelial Cells Occ /LPF Urine Bacteria 0 /HPF (0-FEW) Urine Hyaline Casts Occasional /HPF Urine Mucus Slight /LPF Assessment and Plan Assessmemt and Plan Problems Medical Problems: (1) Fever Status: Acute (2) Sorethroat Status: Acute Comment Review of Relevant I have reviewed the following items kristin (where applicable) has been applied. Medications: Current Medications Medications (Trade) Dose Ordered Sig/[place] Route PRN Reason Start Time Stop Time Status Last Admin Dose Admin Ibuprofen (Motrin) 600 mg 1X ONCE PO 04/11/21 19:15 04/11/21 19:16 DC 04/11/21 19:27 Famotidine (Pepcid) 20 mg HS PO 04/11/21 21:00 04/11/21 22:24 Lisinopril (Prinivil) 20 mg DAILY PO 04/12/21 09:00 04/12/21 07:52 Guaifenesin (MUCINEX ER with DM) 1 tab BID PO 04/11/21 21:00 04/12/21 07:51 Sodium Chloride 1,000 ml @ 100 mls/hr 1X ONCE IV 04/11/21 20:15 04/12/21 06:14 DC 04/11/21 22:21 Prednisone (Prednisone) 40 mg 1X ONCE PO 04/11/21 20:30 04/11/21 21:15 DC 04/11/21 22:23 Doxycycline Hyclate 100 mg/ Dextrose 100 ml @ 50 mls/hr BID IV 04/11/21 21:00 04/11/21 22:22 Prednisone (Prednisone) 40 mg DAILY PO 04/12/21 09:00 04/12/21 07:52 Acetaminophen/ Hydrocodone Bitart (Lortab 5/325) 1 tab PRN Q4HRS PRN PO MILD PAIN 1-3 04/11/21 20:45 04/12/21 05:06 Acetaminophen (Tylenol) 650 mg PRN Q6HRS PRN PO Headaches, Temp > 101.5F 04/11/21 20:45 04/12/21 07:53 Enoxaparin Sodium (Lovenox 40mg Syringe) 40 mg Q12HR SQ 04/11/21 21:00 04/12/21 07:52 Nicotine (Nicoderm Cq 14mg) 1 patch PRN DAILY PRN TD SMOKING CESSATION 04/11/21 21:15 04/12/21 07:53 Justifications for Admission General Conditions Other justification for admit: Acute respiratory failure hypoxia, COVID-19 PUI Other Justification TADEO VALADEZ MD Apr 12, 2021 08:43
[2021-04-12 08:44] LABS: BASO % 0 % (0-3); EOS % 0 % (0-3); HEMATOCRIT 45.4 % (39.0-53.0); HEMOGLOBIN 15.3 g/dL (13.0-17.5); LYMPH # 0.9 x10^3/uL (1.0-4.8); LYMPH % 10 % (24-48); MEAN CORPUSCULAR HEMOGLOBIN 32 pg (25-35); MEAN CORPUSCULAR HGB CONC 34 g/dL (31-37); MEAN CORPUSCULAR VOLUME 95 fL (79-100); MONO # 0.3 x10^3/uL (0.0-1.1); MONO % 3 % (0-9); NEUT % 87 % (31-73); PLATELET COUNT 296 x10^3/uL (140-400); RED BLOOD COUNT 4.76 x10^6/uL (4.30-5.70); RED CELL DISTRIBUTION WIDTH 14.2 % (11.5-14.5); WHITE BLOOD COUNT 9.2 x10^3/uL (4.0-11.0)
[2021-04-12] MEDS: DOXYCYCLINE HYCLATE 100 MG in IV DEXTROSE 5% 100ML 100 ML IV SCH ×2 (08:45→21:49)
[2021-04-12] MEDS ORDERED: predniSONE 20 MG TABLET PO SCH (09:00)
[2021-04-12 09:17] LABS: ALBUMIN 2.9 g/dL (3.4-5.0); ALBUMIN/GLOBULIN RATIO 0.6 (1.0-1.7); CALCIUM 8.6 mg/dL (8.5-10.1); CREATININE 0.9 mg/dL (0.7-1.3); GFR 90.4; POTASSIUM 4.5 mmol/L (3.5-5.1); TOTAL BILIRUBIN 0.3 mg/dL (0.2-1.0); TOTAL PROTEIN 7.5 g/dL (6.4-8.2)
[2021-04-12] MEDS ORDERED: PROCHLORPERAZINE 10 MG/2 ML VIAL. IV PRN (09:30)
[2021-04-12] MEDS ORDERED: BENZOCAINE/MENTHOL LOZENGE. PO PRN (09:30)
[2021-04-12] MEDS ORDERED: PHENOL ORAL SPRAY 177ML BOTTLE. PO PRN (09:45)
[2021-04-12 11:03] VITALS: BP 137/84
[2021-04-12 15:01] VITALS: BP 150/73
[2021-04-12 19:00] VITALS: BP 143/68
[2021-04-12] MEDS: FAMOTIDINE 20 MG TABLET. PO SCH (21:48)
[2021-04-12] MEDS: LACTOBACILLUS RHAMNOSUS GG 1 CAPSULE. PO SCH (21:54)
[2021-04-12 22:35] LABS: HEMOGLOBIN A1C 8.2 % (4.8-5.6)
[2021-04-12 23:08] VITALS: BP 131/50
[2021-04-12] MEDS: ZOLPIDEM 5 MG TABLET. PO PRN (23:25)
[2021-04-13 03:21] VITALS: BP 123/56
[2021-04-13 07:00] VITALS: BP 127/77
[2021-04-13] MEDS ORDERED: DEXTROSE 50% 25 GM / 50ML DISP.SYRIN. IV PRN (07:15)
--- NOTE | 2021-04-13 07:16 | PDOC ---
[employer] PROGRESS NOTE Date of Service DOS: DATE: 04/13/21 TIME: 07:09 Chief Complaint Chief Complaint Acute respiratory with hypoxia COPD exacerbation - heavy smoking history Newly diagnosed diabetes - HbA1c 8.2, will start on metformin, DPP4, and short term insulin to get A1c < 8 HTN - cont lisinopril Tobacco abuse - counseled on cessation HENLEY - likely tobacco withdrawal Pleuritic chest pain - add toradol, cough suppressant, hydrocodone prn Community aquired pneumonia -likely gram-negative given recent dental procedure and smoker. Sinusitis - doxycycline Plan: Denies any formal history of COPD, but given extensive smoking history we will treat accordingly. Prednisone 40 mg daily Doxycycline 100 mg twice daily If COVID-19 returns negative, will provide duo nebulizers as needed. Albuterol inhaler as needed Will obtain 6-minute walk if COVID-19 negative and anticipate discharge home with self-care Resume home medications FEN - Cardiac diet PPX - Lovenox FULL CODE Dispo - inpatient for above Patient names his mother (Beckie Carrasco) as surrogate decision-maker History of Present Illness History of Present Illness Patient is a 45-year-old male with past medical history HTN, morbid obesity, who presents to the ED with complaints of fever and shortness of breath over the past 2 days. He reports generally feeling unwell for the past 12 days. Associated productive cough, sore throat, sneezing, and chest congestion. States his fever at home has been subjective, however upon arrival to the ER he was 101.9 F. He denies any associated nausea, vomiting, or diarrhea. Labs on admission showed WBC 11.8, CBG 277, albumin 3.0, procalcitonin <0.10, troponin 0.019, lactic acid 1.6. Chest x-ray showed possible small left effusion or pleural thickening, but no confluent infiltrates. Rapid COVID-19 was negative in the ED. in the ED he did become hypoxic on room air, and was placed on 4 L nasal cannula with improvement. Admitted patient for further medical management. 04/12: Afebrile overnight. O2 saturations 93% on 4 L/min nasal cannula. Is complaining of 10-10 headache today as well as sore throat. He says he said a sore throat since dental extraction over a month ago. Complaining of sinus congestion and brownish sputum production. Covid PCR pending Afebrile overnight. COVID-19 PCR returned negative. Having significant pleuritic chest pain with cough still productive brown sputum. O2 saturations improving sore throat improving. / blood culture positive initial blood cultures for GPC Vitals/I&O Vitals/I&O: Vital Signs Date Time Temp Pulse Resp B/P (MAP) Pulse Ox O2 Delivery O2 Flow Rate FiO2 04/13/21 03:21 98.1 64 21 123/56 (78) 93 Nasal Cannula 4.0 98.1 I & O 04/12/21 04/12/21 04/13/21 15:00 23:00 07:00 Intake Total 500 ml 300 ml 520 ml Output Total 325 ml Balance 175 ml 300 ml 520 ml Physical Exam General: Alert, Oriented X3, Cooperative Labs Labs: Laboratory Tests Test 04/12/21 08:00 White Blood Count 9.2 x10^3/uL (4.0-11.0) Red Blood Count 4.76 x10^6/uL (4.30-5.70) Hemoglobin 15.3 g/dL (13.0-17.5) Hematocrit 45.4 % (39.0-53.0) Mean Corpuscular Volume 95 fL (79-100) Mean Corpuscular Hemoglobin 32 pg (25-35) Mean Corpuscular Hemoglobin Concent 34 g/dL (31-37) Red Cell Distribution Width 14.2 % (11.5-14.5) Platelet Count 296 x10^3/uL (140-400) Neutrophils (%) (Auto) 87 % (31-73) Lymphocytes (%) (Auto) 10 % (24-48) Monocytes (%) (Auto) 3 % (0-9) Eosinophils (%) (Auto) 0 % (0-3) Basophils (%) (Auto) 0 % (0-3) Neutrophils # (Auto) 8.0 x10^3/uL (1.8-7.7) Lymphocytes # (Auto) 0.9 x10^3/uL (1.0-4.8) Monocytes # (Auto) 0.3 x10^3/uL (0.0-1.1) Eosinophils # (Auto) 0.0 x10^3/uL (0.0-0.7) Basophils # (Auto) 0.0 x10^3/uL (0.0-0.2) Sodium Level 139 mmol/L (136-145) Potassium Level 4.5 mmol/L (3.5-5.1) Chloride Level 102 mmol/L (98-107) Carbon Dioxide Level 35 mmol/L (21-32) Anion Gap 2 (6-14) Blood Urea Nitrogen 11 mg/dL (8-26) Creatinine 0.9 mg/dL (0.7-1.3) Estimated GFR (Cockcroft-Gault) 90.4 BUN/Creatinine Ratio 12 (6-20) Glucose Level 182 mg/dL (70-99) Hemoglobin A1c 8.2 % (4.8-5.6) Calcium Level 8.6 mg/dL (8.5-10.1) Total Bilirubin 0.3 mg/dL (0.2-1.0) Aspartate Amino Transf (AST/SGOT) 29 U/L (15-37) Alanine Aminotransferase (ALT/SGPT) 46 U/L (16-63) Alkaline Phosphatase 64 U/L (46-116) Total Protein 7.5 g/dL (6.4-8.2) Albumin 2.9 g/dL (3.4-5.0) Albumin/Globulin Ratio 0.6 (1.0-1.7) Assessment and Plan Assessmemt and Plan Problems Medical Problems: (1) Fever Status: Acute (2) Sorethroat Status: Acute Comment Review of Relevant I have reviewed the following items kristin (where applicable) has been applied. Medications: Current Medications Medications (Trade) Dose Ordered Sig/[place] Route PRN Reason Start Time Stop Time Status Last Admin Dose Admin Lisinopril (Prinivil) 20 mg DAILY PO 04/12/21 09:00 04/12/21 07:52 Prednisone (Prednisone) 40 mg DAILY PO 04/12/21 09:00 04/12/21 07:52 Enoxaparin Sodium (Lovenox 60mg Syringe) 60 mg Q12HR SQ 04/12/21 21:00 04/12/21 21:48 Lactobacillus Rhamnosus (Culturelle) 1 cap BID PO 04/12/21 21:00 04/12/21 21:54 Justifications for Admission General Conditions Other justification for admit: Acute respiratory failure hypoxia, COVID-19 PUI Other Justification TADEO VALADEZ MD Apr 13, 2021 07:16
[2021-04-13] MEDS: DOXYCYCLINE HYCLATE 100 MG in IV DEXTROSE 5% 100ML 100 ML IV SCH ×2 (08:23→21:11)
[2021-04-13] MEDS: LACTOBACILLUS RHAMNOSUS GG 1 CAPSULE. PO SCH ×2 (08:23→21:12)
[2021-04-13] MEDS: metFORMIN 500 MG TABLET PO SCH ×2 (08:23→17:21)
[2021-04-13] MEDS: LINAGLIPTIN 5 MG TABLET PO SCH (08:24)
[2021-04-13] MEDS: guaiFENesin DM 600/30MG 1 TAB TAB.ER.12H PO SCH ×2 (08:24→21:12)
[2021-04-13] MEDS: HYDROcodone/APAP 5/325MG 1 TAB TABLET PO PRN ×3 (08:24→21:12)
[2021-04-13] MEDS: predniSONE 20 MG TABLET PO SCH (08:24)
[2021-04-13] MEDS: NICOTINE 14MG PATCH. TD PRN (08:24)
[2021-04-13] MEDS: LISINOPRIL 20 MG TABLET PO SCH (08:25)
[2021-04-13] MEDS: INSULIN LISPRO 300 UNITS/3 ML VIAL. SQ SCH ×3 (08:29→17:22)
[2021-04-13] MEDS: cefTRIAXone IV Push 1 GM VIAL. IVP SCH (10:02)
[2021-04-13 11:00] VITALS: BP 155/87
[2021-04-13] MEDS ORDERED: KETOROLAC 30 MG/ML VIAL. IVP PRN (11:15)
[2021-04-13 15:00] VITALS: BP 142/73
[2021-04-13 19:00] VITALS: BP_SYST 129; BP_SYST 146; BP_DIAS 69; BP_DIAS 87
[2021-04-13] MEDS: FAMOTIDINE 20 MG TABLET. PO SCH (21:12)
[2021-04-13] MEDS: ZOLPIDEM 5 MG TABLET. PO PRN (21:12)
[2021-04-13] MEDS: INSULIN GLARGINE SYRINGE. SQ SCH (22:31)
[2021-04-13 23:00] VITALS: BP 135/70
[2021-04-14] MEDS: ACETAMINOPHEN 325 MG TABLET. PO PRN ×3 (00:34→17:19)
[2021-04-14 03:00] VITALS: BP 125/65
[2021-04-14 07:00] VITALS: BP 127/75
[2021-04-14] MEDS: INSULIN LISPRO 300 UNITS/3 ML VIAL. SQ SCH ×3 (08:00→17:29)
[2021-04-14] MEDS: guaiFENesin DM 600/30MG 1 TAB TAB.ER.12H PO SCH ×2 (08:40→20:51)
[2021-04-14] MEDS: metFORMIN 500 MG TABLET PO SCH ×2 (08:40→17:19)
[2021-04-14] MEDS: LISINOPRIL 20 MG TABLET PO SCH (08:40)
[2021-04-14] MEDS: predniSONE 20 MG TABLET PO SCH (08:40)
[2021-04-14] MEDS: LACTOBACILLUS RHAMNOSUS GG 1 CAPSULE. PO SCH ×2 (08:40→20:51)
[2021-04-14] MEDS: LINAGLIPTIN 5 MG TABLET PO SCH (08:40)
[2021-04-14] MEDS: DOXYCYCLINE HYCLATE 100 MG in IV DEXTROSE 5% 100ML 100 ML IV SCH ×2 (08:41→22:09)
[2021-04-14] MEDS: cefTRIAXone IV Push 1 GM VIAL. IVP SCH (08:41)
[2021-04-14] MEDS: HYDROcodone/APAP 5/325MG 1 TAB TABLET PO PRN ×3 (08:43→22:07)
[2021-04-14 11:00] VITALS: BP 161/83
[2021-04-14] MEDS: NICOTINE 14MG PATCH. TD PRN (12:19)
--- NOTE | 2021-04-14 14:08 | PDOC ---
[employer] PROGRESS NOTE Date of Service DOS: DATE: 04/14/21 TIME: 14:04 Chief Complaint Chief Complaint Acute respiratory with hypoxia COPD exacerbation - heavy smoking history Newly diagnosed diabetes - HbA1c 8.2, will start on metformin, DPP4, and short term insulin to get A1c < 8 HTN - cont lisinopril Tobacco abuse - counseled on cessation HENLEY - likely tobacco withdrawal Pleuritic chest pain - add toradol, cough suppressant, hydrocodone prn Community aquired pneumonia -likely gram-negative given recent dental procedure and smoker. Sinusitis - doxycycline Plan: Denies any formal history of COPD, but given extensive smoking history we will treat accordingly. Prednisone 40 mg daily Doxycycline 100 mg twice daily If COVID-19 returns negative, will provide duo nebulizers as needed. Albuterol inhaler as needed Will obtain 6-minute walk if COVID-19 negative and anticipate discharge home with self-care Resume home medications FEN - Cardiac diet PPX - Lovenox FULL CODE Dispo - inpatient for above Patient names his mother (Beckie Carrasco) as surrogate decision-maker History of Present Illness History of Present Illness Patient is a 45-year-old male with past medical history HTN, morbid obesity, who presents to the ED with complaints of fever and shortness of breath over the past 2 days. He reports generally feeling unwell for the past 12 days. Associated productive cough, sore throat, sneezing, and chest congestion. States his fever at home has been subjective, however upon arrival to the ER he was 101.9 F. He denies any associated nausea, vomiting, or diarrhea. Labs on admission showed WBC 11.8, CBG 277, albumin 3.0, procalcitonin <0.10, troponin 0.019, lactic acid 1.6. Chest x-ray showed possible small left effusion or pleural thickening, but no confluent infiltrates. Rapid COVID-19 was negative in the ED. in the ED he did become hypoxic on room air, and was placed on 4 L nasal cannula with improvement. Admitted patient for further medical management. 04/12: Afebrile overnight. O2 saturations 93% on 4 L/min nasal cannula. Is complaining of 10-10 headache today as well as sore throat. He says he said a sore throat since dental extraction over a month ago. Complaining of sinus congestion and brownish sputum production. Covid PCR - 04/13: Afebrile overnight. COVID-19 PCR returned negative. Having significant pleuritic chest pain with cough still productive brown sputum. O2 saturations improving sore throat improving. 1/ blood culture positive initial blood cultures for GPC Afebrile. Still requiring 4 L/min nasal cannula saturations 91 to 93%. He almost passed out while taking a shower today. Still cough productive of brownish sputum. Having some sores in his mouth today thick white plaques he is removing. Discussed plan for noncontrast CT today to better assess reason for persistent hypoxia. Vitals/I&O Vitals/I&O: Vital Signs Date Time Temp Pulse Resp B/P (MAP) Pulse Ox O2 Delivery O2 Flow Rate FiO2 04/14/21 11:00 97.9 111 22 161/83 (109) 92 Nasal Cannula 4.0 97.9 I & O 04/13/21 04/13/21 04/14/21 15:00 23:00 07:00 Intake Total 340 ml Output Total 300 ml Balance 340 ml -300 ml Physical Exam General: Alert, Oriented X3, Cooperative Labs Labs: Laboratory Tests Test 04/13/21 17:18 04/13/21 21:00 04/14/21 07:16 04/14/21 11:48 Glucose (Fingerstick) 279 mg/dL (70-99) 198 mg/dL (70-99) 134 mg/dL (70-99) 257 mg/dL (70-99) Assessment and Plan Assessmemt and Plan Problems Medical Problems: (1) Fever Status: Acute (2) Sorethroat Status: Acute Comment Review of Relevant I have reviewed the following items kristin (where applicable) has been applied. Medications: Current Medications Medications (Trade) Dose Ordered Sig/Idalia Route PRN Reason Start Time Stop Time Status Last Admin Dose Admin Insulin Glargine (Lantus Syringe) 10 unit QHS SQ 04/13/21 21:00 04/13/21 22:31 Justifications for Admission General Conditions Other justification for admit: Acute respiratory failure hypoxia, COVID-19 PUI Other Justification TADEO VALADEZ MD Apr 14, 2021 14:08
[2021-04-14] MEDS: NYSTATIN 100,000 UNITS/ML 5 ML ORAL.SUSP. SWSW SCH ×3 (14:15→20:53)
[2021-04-14 15:00] VITALS: BP 161/76
--- NOTE | 2021-04-14 18:45 | RAD ---
EXAM: CT Chest without IV contrast CLINICAL HISTORY: Reason: Worsening hypoxia, assess for effusion, worsening infiltrate vs mucous plug / Spl. Instructions: / History: COMPARISON: 12/26/2020. TECHNIQUE: CT of the chest without intravenous contrast. Axial, coronal and sagittal reformatted imag es were generated. ---PQRS compliance statement - One or more of the following individualized dose reduction techniques were utilized for this study: 1. Automated exposure control 2. Adjustment of the mA and/or kV according to patient size 3. Use of iterative reconstruction technique--- FINDINGS: Lack of intravenous contrast limits evaluation of solid organs, vasculature, and lymph nodes. Chest: Heart is not enlarged. Coronary calcifications are seen. No pericardial effusion. No pleural e ffusion. No pneumothorax. Bilateral gynecomastia. No mediastinal or hilar lymphadenopathy within the constraints of this noncon trast examination. No axillary lymphadenopathy. Patchy groundglass opacities dependently likely atelectasis. Examination is limited by motion artifac t. No lobar consolidation. 6 mm nodular opacity medial left lower lobe (2/44) is likely artifactual f rom motion artifact and thick slices as this was not seen on prior CT 12/26/2020. Visualized Upper abdomen: Hepatic hypoattenuation, fatty liver. Bones: No aggressive osseous lesion is seen. IMPRESSION: 1. Minimal groundglass opacities dependently likely atelectasis. No lobar consolidation. 2. Hepatic hypoattenuation, fatty liver. 3. 6 mm medial left lower lobe lung nodule is favored to be artifactual as this was not seen on 12/26. Recommend close attention on follow-up. Electronically signed by: Abiel Page MD (04/14/2021 6:43 PM) ARACELY
[2021-04-14 19:58] VITALS: BP 151/85
[2021-04-14] MEDS: FAMOTIDINE 20 MG TABLET. PO SCH (20:51)
[2021-04-14] MEDS: INSULIN GLARGINE SYRINGE. SQ SCH (21:09)
[2021-04-14 23:54] VITALS: BP 122/66
[2021-04-15] MEDS: HYDROcodone/APAP 5/325MG 1 TAB TABLET PO PRN ×3 (02:43→13:09)
[2021-04-15 03:06] VITALS: BP 141/81
[2021-04-15 07:00] VITALS: BP 164/67
--- NOTE | 2021-04-15 07:59 | PDOC ---
[employer] PROGRESS NOTE Date of Service DOS: DATE: 04/15/21 TIME: 07:53 Chief Complaint Chief Complaint Acute respiratory with hypoxia COPD exacerbation - heavy smoking history Newly diagnosed diabetes - HbA1c 8.2, will start on metformin, DPP4, and short term insulin to get A1c < 8 HTN - cont lisinopril Tobacco abuse - counseled on cessation HENLEY - likely tobacco withdrawal Pleuritic chest pain - add toradol, cough suppressant, hydrocodone prn Community aquired pneumonia -likely gram-negative given recent dental procedure and smoker. Sinusitis - doxycycline Plan: Denies any formal history of COPD, but given extensive smoking history we will treat accordingly. Prednisone 40 mg daily Doxycycline 100 mg twice daily If COVID-19 returns negative, will provide duo nebulizers as needed. Albuterol inhaler as needed Will obtain 6-minute walk if COVID-19 negative and anticipate discharge home with self-care Resume home medications FEN - Cardiac diet PPX - Lovenox FULL CODE Dispo - inpatient for above Patient names his mother (Beckie Carrasco) as surrogate decision-maker History of Present Illness History of Present Illness Mr Carrasco is a 45-year-old male with past medical history HTN, morbid obesity, who presents to the ED with complaints of fever and shortness of breath over the past 2 days. He reports generally feeling unwell for the past 12 days. Associated productive cough, sore throat, sneezing, and chest congestion. States his fever at home has been subjective, however upon arrival to the ER he was 101.9 F. He denies any associated nausea, vomiting, or diarrhea. Labs on admission showed WBC 11.8, CBG 277, albumin 3.0, procalcitonin <0.10, troponin 0.019, lactic acid 1.6. Chest x-ray showed possible small left effusion or pleural thickening, but no confluent infiltrates. Rapid COVID-19 was negative in the ED. in the ED he did become hypoxic on room air, and was placed on 4 L nasal cannula with improvement. Admitted patient for further medical management. 04/12: Afebrile overnight. O2 saturations 93% on 4 L/min nasal cannula. Is complaining of 10-10 headache today as well as sore throat. He says he said a sore throat since dental extraction over a month ago. Complaining of sinus congestion and brownish sputum production. Covid PCR - 04/13: Afebrile overnight. COVID-19 PCR returned negative. Having significant pleuritic chest pain with cough still productive brown sputum. O2 saturations improving sore throat improving. 07/03 blood culture positive initial blood cultures for GPC 04/14: Afebrile. Still requiring 4 L/min nasal cannula saturations 91 to 93%. He almost passed out while taking a shower today. Still cough productive of brownish sputum. Having some sores in his mouth today thick white plaques he is removing. Discussed plan for noncontrast CT today to better assess reason for persistent hypoxia. CT chest with minimal bibasilar groundglass otherwise no lobar consolidations. Cough improving. Diabetic education undertaken. Afebrile. Still requiring oxygen and will need 6-minute walk prior to discharge. Can discharge home on p.o. antibiotics with diabetic testing supplies and outpatient diabetic treatment. Vitals/I&O Vitals/I&O: Vital Signs Date Time Temp Pulse Resp B/P (MAP) Pulse Ox O2 Delivery O2 Flow Rate FiO2 04/15/21 07:00 98.2 102 20 164/67 (99) 96 Nasal Cannula 4.0 98.2 I & O 04/14/21 04/14/21 04/15/21 15:00 23:00 07:00 Intake Total 400 ml 440 ml 350 ml Balance 400 ml 440 ml 350 ml Physical Exam General: Alert, Oriented X3, Cooperative Labs Labs: Laboratory Tests Test 04/14/21 11:48 04/14/21 16:43 04/14/21 21:02 04/15/21 06:57 Glucose (Fingerstick) 257 mg/dL (70-99) 211 mg/dL (70-99) 102 mg/dL (70-99) 115 mg/dL (70-99) Assessment and Plan Assessmemt and Plan Problems Medical Problems: (1) Fever Status: Acute (2) Sorethroat Status: Acute Comment Review of Relevant I have reviewed the following items kristin (where applicable) has been applied. Medications: Current Medications Medications (Trade) Dose Ordered Sig/Idalia Route PRN Reason Start Time Stop Time Status Last Admin Dose Admin Nystatin (Nystatin Oral Susp) 5 ml [id number] 04/14/21 14:15 04/14/21 20:53 Justifications for Admission General Conditions Other justification for admit: Acute respiratory failure hypoxia, COVID-19 PUI Other Justification TADEO VALADEZ MD Apr 15, 2021 07:59
[2021-04-15] MEDS: INSULIN LISPRO 300 UNITS/3 ML VIAL. SQ SCH ×2 (08:00→11:59)
[2021-04-15] MEDS: metFORMIN 500 MG TABLET PO SCH (08:00)
[2021-04-15] MEDS: LACTOBACILLUS RHAMNOSUS GG 1 CAPSULE. PO SCH (08:19)
[2021-04-15] MEDS: predniSONE 20 MG TABLET PO SCH (08:19)
[2021-04-15] MEDS: guaiFENesin DM 600/30MG 1 TAB TAB.ER.12H PO SCH (08:19)
[2021-04-15] MEDS: LISINOPRIL 20 MG TABLET PO SCH (08:20)
[2021-04-15] MEDS: LINAGLIPTIN 5 MG TABLET PO SCH (08:20)
[2021-04-15] MEDS: NICOTINE 14MG PATCH. TD PRN (08:21)
[2021-04-15] MEDS: DOXYCYCLINE HYCLATE 100 MG in IV DEXTROSE 5% 100ML 100 ML IV SCH (08:21)
[2021-04-15] MEDS: cefTRIAXone IV Push 1 GM VIAL. IVP SCH (08:22)
[2021-04-15] MEDS: NYSTATIN 100,000 UNITS/ML 5 ML ORAL.SUSP. SWSW SCH ×2 (09:50→13:08)
[2021-04-15 11:00] VITALS: BP 163/94
[2021-04-15] MEDS ORDERED: LINA5TAB PO (13:58)
[2021-04-15] MEDS ORDERED: METF500T16 PO (13:58)
[2021-04-15] MEDS ORDERED: PRED20TA PO (13:58)
[2021-04-15] MEDS ORDERED: INSU100I66 SQ (13:58)
[2021-04-15] MEDS ORDERED: DOXY100C25 PO (13:58)
[2021-04-15] MEDS ORDERED: HYDR-2761 PO (13:58)
--- NOTE | 2021-04-15 14:27 | PDOC3 ---
Discharge Summary Visit Information Date of Admission: Apr 11, 2021 Date of Discharge: Apr 15, 2021 Admitting Diagnosis: CAP, hypoxic respiratory failure Final Diagnosis Problems Medical Problems: (1) Fever Status: Acute (2) Sorethroat Status: Acute Brief Hospital Course Allergies Allergies Coded Allergies Type Severity Reaction Last Updated Verified tramadol Allergy Intermediate HIVES 06/14/16 Yes Vital Signs Vital Signs Date Time Temp Pulse Resp B/P (MAP) Pulse Ox O2 Delivery O2 Flow Rate FiO2 04/15/21 13:44 94 Nasal Cannula 4.0 04/15/21 11:00 97.6 111 20 163/94 (117) 97.6 Lab Results Laboratory Tests Test 04/13/21 17:18 04/13/21 21:00 04/14/21 07:16 04/14/21 11:48 Glucose (Fingerstick) 279 mg/dL (70-99) 198 mg/dL (70-99) 134 mg/dL (70-99) 257 mg/dL (70-99) Test 04/14/21 16:43 04/14/21 21:02 04/15/21 06:57 04/15/21 11:39 Glucose (Fingerstick) 211 mg/dL (70-99) 102 mg/dL (70-99) 115 mg/dL (70-99) 184 mg/dL (70-99) Laboratory Tests Test 04/14/21 16:43 04/14/21 21:02 04/15/21 06:57 04/15/21 11:39 Glucose (Fingerstick) 211 mg/dL (70-99) 102 mg/dL (70-99) 115 mg/dL (70-99) 184 mg/dL (70-99) Brief Hospital Course Mr Carrasco is a 45-year-old male with past medical history HTN, morbid obesity, who presents to the ED with complaints of fever and shortness of breath over the past 2 days. He reports generally feeling unwell for the past 12 days. Associa noble productive cough, sore throat, sneezing, and chest congestion. States his fever at home has been subjective, however upon arrival to the ER he was 101.9 F. He denies any associated nausea, vomiting, or diarrhea. Labs on admission showed WBC 11.8, CBG 277, albumin 3.0, procalcitonin <0.10, troponin 0.019, lactic acid 1.6. Chest x-ray showed possible small left effusion or pleural thickening, but no confluent infiltrates. Rapid COVID-19 was negative in the ED. in the ED he did become hypoxic on room air, and was placed on 4 L nasal cannula with improvement. Admitted patient for further medical management. 04/12: Afebrile overnight. O2 saturations 93% on 4 L/min nasal cannula. Is complaining of 10-10 headache today as well as sore throat. He says he said a sore throat since dental extraction over a month ago. Complaining of sinus congestion and brownish sputum production. Covid PCR - 04/13: Afebrile overnight. COVID-19 PCR returned negative. Having significant pleuritic chest pain with cough still productive brown sputum. O2 saturations improving sore throat improving. 07/03 blood culture positive initial blood cultures for GPC 04/14: Afebrile. Still requiring 4 L/min nasal cannula saturations 91 to 93%. He almost passed out while taking a shower today. Still cough productive of brownish sputum. Having some sores in his mouth today thick white plaques he is removing. Discussed plan for noncontrast CT today to better assess reason for persistent hypoxia. CT chest with minimal bibasilar groundglass otherwise no lobar consolidations. Cough improving. Diabetic education undertaken. Afebrile. Still requiring oxygen and will need 6-minute walk prior to discharge. Can discharge home on p.o. antibiotics with diabetic testing supplies and outpatient diabetic treatment. Of note his brother is also a heavy smoker who was recently placed on 4 L/min of oxygen therapy. Advised patient to have outpatient follow-up with pulmonology for alpha-1 antitrypsin testing and formal spirometry. Strenuously advised to stop smoking given his O2 needs for his likely COPD Problem list: Acute respiratory with hypoxia, likely bibasilar pneumonia, COPD COPD exacerbation - heavy smoking history Newly diagnosed diabetes - HbA1c 8.2, will start on metformin, DPP4, and short term insulin to get A1c < 8 HTN - cont lisinopril Tobacco abuse - counseled on cessation HENLEY - likely tobacco withdrawal Pleuritic chest pain - add toradol, cough suppressant, hydrocodone prn Community aquired pneumonia -likely gram-negative given recent dental procedure and smoker. Sinusitis - doxycycline Plan: Denies any formal history of COPD, but given extensive smoking history we will treat accordingly. Prednisone 40 mg daily Doxycycline 100 mg twice daily will provide duo nebulizers as needed. Albuterol inhaler as needed 6-minute walk revealed the need for 0 to 1 L/min nasal cannula oxygen at rest and 3 L/min on any exertion Patient names his mother (Beckie Carrasco) as surrogate decision-maker Greater than 30 minutes spent on d/c home with self care Discharge Information Condition at Discharge: Improved Follow Up: Weeks (1) Disposition/Orders: D/C to Home Scheduled Albuterol Sulfate (Ventolin Hfa Inhaler) 18 Gm Hfa.aer.ad, 2 PUFF INH QID for FOR ASTHMA, #1 Ref 0 Prescribed by: JAM MIRZA DO on 01/13/21 0428 Amitriptyline Hcl (Amitriptyline Hcl) 50 Mg Tablet, 50 MG PO DAILY, (Reported) Entered as Reported by: ANTONINA AKERS on 12/13/13 1708 Buspirone Hcl (Buspirone Hcl) 30 Mg Tablet, 30 MG PO BID, (Reported) Entered as Reported by: ANTONINA AKERS on 12/13/13 1708 Diclofenac Sodium (Diclofenac Sodium) 75 Mg Tablet.dr, 1 TAB PO BID, #20 Ref 1 Prescribed by: FLOWER RAMOS on 07/13/162010 Doxycycline Monohydrate (Monodox) 100 Mg Capsule, 1 CAP PO BID for Pneumonia for 5 Days, #10 Ref 0 Prescribed by: TADEO VALADEZ MD on 04/15/21 1358 Famotidine (Pepcid) 20 Mg Tablet, 20 MG PO HS, #10 Prescribed by: IVETH FUNEZ D.O. on 03/16/19 0243 Last Action: Continued on 04/11/212006 by JAQUI PORTER MD Insulin Glargine,Hum.rec.anlog (Semglee Pen) 100 Unit/1 Ml Insuln.pen, 20 UNIT SQ QHS for DM2 for 30 Days, #3 Ref 5 Prescribed by: TADEO VALADEZ MD on 04/15/21 1358 Linagliptin (Tradjenta) 5 Mg Tablet, 5 MG PO DAILY for DM2 for 30 Days, #30 Ref 5 Prescribed by: TADEO VALADEZ MD on 04/15/21 1358 Lisinopril (Lisinopril) 20 Mg Tablet, 20 MG PO DAILY for FOR HYPERTENSION, #30 Ref 0 (Reported) Entered as Reported by: ANTONINA AKERS on 12/13/13 170 Last Action: Continued on 04/11/212006 by JAQUI PORTER MD Metformin Hcl (Metformin Hcl) 500 Mg Tablet, 500 MG PO BIDWMEALS for DM2 for 30 Days, #60 Ref 5 Prescribed by: TADEO VALADEZ MD on 04/15/21 1358 Metoprolol Tartrate (Metoprolol Tartrate) 50 Mg Tablet, 50 MG PO BID for FOR HYPERTENSION, #60 Ref 0 (Reported) Entered as Reported by: ANTONINA AKERS on 12/13/13 170 Ondansetron Hcl (Zofran) 4 Mg Tablet, 1 TAB PO PRN Q6-8HRS, #10 Prescribed by: ERIC PRESCOTT D.O. on 04/21/16 1905 Prednisone (Prednisone) 20 Mg Tablet, 40 MG PO DAILY for Bronchitis for 5 Days, #10 Prescribed by: TADEO VALADEZ MD on 04/15/21 1358 Venlafaxine Hcl (Venlafaxine Hcl) 37.5 Mg Tablet, 37.5 MG PO BID, (Reported) Entered as Reported by: ANTONINA AKERS on 12/13/13 1708 Scheduled PRN Hydrocodone Bit/Acetaminophen (Hydrocodone-Apap 5-325 ) 1 Each Tablet, 1 TAB PO PRN Q6HRS PRN for PAIN for 6 Days, #12 Prescribed by: TADEO VALADEZ MD on 04/15/21 1359 Discontinued Medications Albuterol Sulfate (Proair Hfa Inhaler) 8.5 Gm Hfa.aer.ad, 1 PUFF INH PRN Q6HRS PRN for SHORTNESS OF BREATH, #1 Prescribed by: AILEEN CASTRO on 03/29/16 1845 Albuterol Sulfate (Proair Hfa Inhaler) 8.5 Gm Hfa.aer.ad, 1 PUFF INH Q4HRS PRN for SHORTNESS OF BREATH, #1 Ref 0 Prescribed by: MITCHELL GUERRA DO on 03/10/17 194 Albuterol Sulfate (Albuterol Sulfate Neb Soln) 2.5 Mg/3 Ml Vial.neb, 1 VIAL NEB Q6HRS PRN for SHORTNESS OF BREATH, #25 Prescribed by: VALERIANO SIMPSON MD on 07/27/20 0233 Azithromycin (Zithromax) 250 Mg Tablet, 1 PKG PO UD, #6 Prescribed by: MITCHELL GUERRA DO on 03/10/17 1944 Clindamycin Hcl (Clindamycin Hcl) 150 Mg Capsule, 2 CAP PO QID for 10 Days Prescribed by: AILEEN CASTRO on 03/29/16 1845 Dicyclomine Hcl (Dicyclomine Hcl) 20 Mg Tablet, 1 TAB PO TID, #30 Ref 1 Prescribed by: Claudia Dunlap APRN on 11/17/16 2336 Diphenhydramine Hcl (Benadryl) 25 Mg Capsule, 1 CAP PO Q6-8HRS PRN for ITCHING, #20 Ref 1 Prescribed by: DESEAN MATT MD on 06/17/16 1313 Diphenoxylate Hcl/Atropine (Lomotil Tablet) 1 Each Tablet, 1 TAB PO TID, #30 Prescribed by: Claudia Dunlap APRN on 11/17/16 2336 Hydrochlorothiazide (Hydrochlorothiazide Tablet) 12.5 Mg Tablet, 25 MG PO DAILY for DIURETIC, Ref 0 (Reported) Entered as Reported by: ANTONINA AKERS on 12/13/13 1708 Hydrocodone/Apap 5-325 ([place] 5-325 Tablet) 1 Each Tablet, 1 TAB PO PRN Q6HRS PRN for PAIN, #15 Prescribed by: AILEEN CASTRO on 03/29/16 1845 Hydrocodone/Apap 5-325 ([place] 5-325 Tablet) 1 Each Tablet, 1 TAB PO PRN Q6HRS PRN for PAIN, #20 Prescribed by: AILEEN CASTRO on 06/02/16 1328 Hydrocodone/Apap 5-325 ([place] 5-325 Tablet) 1 Each Tablet, 1 TAB PO PRN Q6HRS P RN for PAIN, #15 Prescribed by: FLOWER RAMOS on 06/05/16 1248 Hydrocodone/Apap 5-325 ([place] 5-325 Tablet) 1 Each Tablet, 1 TAB PO PRN Q6HRS PRN for PAIN, #14 Prescribed by: COLETTE OLIVEIRA D.O. on 06/09/16 2200 Hydrocodone/Apap 5-325 ([place] 5-325 Tablet) 1 Each Tablet, 1-2 TAB PO Q4-6HRS, #12 Prescribed by: Claudia Dunlap APRN on 11/17/16 2336 Hydrocodone/Apap 5-325 ([place] 5-325 Tablet) 1 Each Tablet, 1 TAB PO PRN Q6HRS PRN for PAIN, #14 Ref 0 Prescribed by: MITCHELL GUERRA DO on 03/10/17 1944 Hydrocodone/Apap 5-325 ([place] 5-325 Tablet) 1 Each Tablet, 1 TAB PO TID, #10 Prescribed by: KENDAL ELLIS PA-C on 03/22/17 195 Hydrocodone/Apap 5-325 ([place] 5-325 Tablet) 1 Each Tablet, 1-2 EACH PO PRN Q6HRS PRN for PAIN, #15 as needed for pain Prescribed by: MATHIEU DILLON MD on 07/01/18 2240 Hydrocodone/Apap 5-325 ([place] 5-325 Tablet) 1 Each Tablet, 0.5-1 TAB PO PRN Q6HRS PRN for PAIN, #10 Ref 0 Prescribed by: IVETH FUNEZ D.O. on 03/06/19 0226 Hydrocodone/Apap 5-325 ([place] 5-325 Tablet) 1 Each Tablet, 0.5-1 TAB PO PRN Q6HRS PRN for PAIN, #10 Ref 0 Prescribed by: IVETH FUNEZ D.O. on 03/16/19 0243 Info (No Known Medications Prior To Admisstion) Each, 1 EACH 1X for denies home meds, (Reported) Entered as Reported by: LATOYA MIXON RN on 04/12/21343 Last Action: New Order on 04/12/21343 by LATOYA MIXON RN Ivermectin (Ivermectin) 3 Mg Tablet, 3 MG PO 1X for 2 Days take one dose today, and the next dose in two weeks Prescribed by: DESEAN MATT MD on 06/17/16 1313 Levofloxacin (Levaquin) 750 Mg Tablet, 1 TAB PO DAILY, #9 First dose given in the emergency department. Prescribed by: ERIC PRESCOTT D.O. on 04/21/16 190 Methylprednisolone (Medrol) 4 Mg Tab.ds.pk, 1 PKG PO UD, #1 Prescribed by: JAM MIRZA DO on 01/13/21 0428 Metronidazole (Metronidazole) 500 Mg Tablet, 1 TAB PO TID, #30 Prescribed by: ERIC PRESCOTT D.O. on 04/21/16 190 Naproxen (Naproxen) 500 Mg Tablet, 1 TAB PO BID PRN for PAIN, #30 Ref 1 Prescribed by: AIMEE MARIE D.O. on 06/14/16 1823 Naproxen (Naprosyn) 500 Mg Tablet, 1 TAB PO BID, #20 Ref 1 Prescribed by: RAJNI RDZ APRN on 01/03/17 2319 Naproxen Sodium (Anaprox Ds) 550 Mg Tablet, 550 MG PO Q12HR, #20 Prescribed by: FLOWER RAMOS on 06/05/16 1248 Nystatin (Nystatin) 15 Gm Powder, 1 EMMA TP BID, #1 Use on perianal region for fungal rash. Prescribed by: NITIN STRATTON on 04/24/16 194 Oxycodone/Apap 5-325 (Percocet 5-325 Mg Tablet ) 1 Each Tablet, 1-2 TAB PO Q4- 6HRS PRN for PAIN, #12 Prescribed by: ERIC PRESCOTT D.O. on 04/21/161904 Permethrin (Elimite) 60 Gm Cream..g., 60 GM TP 1X for scabies, #1 Prescribed by: AIMEE MARIE D.O. on 06/14/16 182 Prednisone (Prednisone) 50 Mg Tablet, 1 TAB PO DAILY, #5 Prescribed by: BEN JOEL APRN on 04/26/16 2342 Sulfamethoxazole/Trimethoprim (Bactrim Ds Tablet) 1 Each Tablet, 1 TAB PO BID, #20 Prescribed by: Claudia Dunlap APRN on 04/12/18 2144 Justicifation of Admission Dx: Justifications for Admission: Justification of Admission Dx: Yes TADEO VALADEZ MD Apr 15, 2021 14:27
[2021-04-15 15:31] VITALS: BP 152/82
--- NOTE | 2021-04-15 16:37 | NUR ---
Discharge Note: [facility] [place] Discharge instructions and discharge home medications reviewed with Patient and a copy given. All questions have been answered and understanding verbalized. The following instructions and handouts were given: follow up instructions, diabetes education, education on pulling up and injecting insulin, oxygen needs, prescriptions Discontinued lines and drains: 22 gauge right shoulder, tip intact. patient tolerated well. Patient discharged to home with self care via friend.
== END 2021-04-15 16:30 | disposition home or self-care (01) | DRG 177 ==
LOC: ER 16:56 → 5 NORTH 20:00
PROVIDERS: ADMIT Family Medicine; ATTEND Family Medicine
DX: J15.6 Pneumonia due to other Gram-negative bacteria (principal); J96.01 Acute respiratory failure with hypoxia; F17.213 Nicotine dependence, cigarettes, with withdrawal; J44.0 Chronic obstructive pulmonary disease with (acute) lower respiratory infection; J44.1 Chronic obstructive pulmonary disease with (acute) exacerbation; Z68.43 Body mass index [BMI] 50.0-59.9, adult; E78.5 Hyperlipidemia, unspecified; I10 Essential (primary) hypertension; Z20.822 Contact with and (suspected) exposure to COVID-19; Z82.49 Family history of ischemic heart disease and other diseases of the circulatory system; E66.01 Morbid (severe) obesity due to excess calories; G89.29 Other chronic pain; Z88.8 Allergy status to other drugs, medicaments and biological substances; Z71.6 Tobacco abuse counseling; E11.21 Type 2 diabetes mellitus with diabetic nephropathy; Z79.4 Long term (current) use of insulin; J32.9 Chronic sinusitis, unspecified
CPT/HCPCS: 36415; 71045; 71250; 80053; 81001; 82962; 83036; 83605; 83735; 83880; 84145; 84484; 85025; 87040; 87205; 87426; 87804; 93005; 94618; J0696; J1650; J1815; J3490; J7030; J7060; J7512; U0003; U0005; 99285-25; G0378